=== PATIENT | female | born 1930 | race Caucasian/White ===

== ENCOUNTER 2018-07-02 14:09 | Inpatient (IN) | payer BC, MEDICAID, MEDICARE ==
[~2018-07-02] VITALS: Ht 157.5 cm; Wt 57.7 kg
[~2018-07-02 14:09] MED LIST: ALEN70TA6 PO; AMLO5TAB10 PO; ANTI10DR7 EACH EAR; BLINK EYE EACHEYE; CALC-178 PO; CEPH-264 PO; CIPR250T30 PO; CIPR500T94 PO; Cetirizine PO; ERYTHROMYCIN EACHEYE; HYDR-2145 PO; HYDR12.58 PO; HYDROCLOROTHIAZIDE; INSU100C4 SQ; INSU100V8; LATA2.5D3 OP; LORA-781 PO; MULT-18 PO; NITR25OR2 PO; NITR50CA PO; NOVOLOG; OMEG500C PO; OMEP20CA10 PO; OXYB10TA PO; POTA500T5 PO; SOLI5TAB2 PO; TRAM50TA PO
--- NOTE | 2018-07-02 14:37 | PHYS DOC ---
Past Medical History Past Medical History: Depression, Diabetes-Type II, GERD, Glaucoma, Hypertension, UTI Additional Past Medical Histor: Pt states she has never had tonsils. , osteoperosis Past Surgical History: Other Additional Past Surgical Histo: L)arm Calcium spots removed,Bilat Cataracts, pin placed L arm Alcohol Use: None Drug Use: None Adult General Chief Complaint Chief Complaint: NAUSEA/VOMITING/DIARRHA HPI HPI Patient is a 88 year old female who presents with nausea since this morning. No vomiting. No diarrhea. No fever, no worse with exertion, mild upper abdominal tenderness. Nothing seems to make the discomfort better or worse.[] Review of Systems Review of Systems Constitutional: Denies fever or chills [] Eyes: Denies change in visual acuity, redness, or eye pain [] HENT: Denies nasal congestion or sore throat [] Respiratory: Denies cough or shortness of breath [] Cardiovascular: No chest pain or palpitations[] GI: See history of present illness[] : Denies dysuria or hematuria [] Musculoskeletal: Denies back pain or joint pain [] Integument: Denies rash or skin lesions [] Neurologic: Denies headache, focal weakness or sensory changes [] Endocrine: Denies polyuria or polydipsia [] All other systems were reviewed and found to be within normal limits, except as documented in this note. Current Medications Current Medications Current Medications Medications (Trade) Dose Ordered Sig/Olayinka Start Time Stop Time Status Last Admin Dose Admin Info (CONTRAST GIVEN -- Rx MONITORING) 1 each PRN DAILY PRN 07/02/18 16:15 07/04/18 16:14 Iohexol (Omnipaque 300 Mg/ml) 60 ml 1X ONCE 07/02/18 16:15 07/02/18 16:16 DC 07/02/18 16:08 60 ML Ondansetron HCl (Zofran) 4 mg 1X ONCE 07/02/18 14:45 07/02/18 14:46 DC 07/02/18 14:53 4 MG Sodium Chloride 500 ml @ 500 mls/hr 1X ONCE 07/02/18 16:00 07/02/18 16:59 07/02/18 16:14 500 MLS/HR Allergies Allergies Allergies Coded Allergies Type Severity Reaction Last Updated Verified Sulfa (Sulfonamide Antibiotics) Allergy Intermediate 12/21/14 Yes bacitracin Allergy Intermediate rash 12/21/14 Yes neomycin Allergy Intermediate rash 12/21/14 Yes polymyxin B Allergy Intermediate rash 12/21/14 Yes Physical Exam Physical Exam Constitutional: Well developed, well nourished, no acute distress, non-toxic appearance. [] HENT: Normocephalic, atraumatic, bilateral external ears normal, oropharynx moist, no oral exudates, nose normal. [] Eyes: PERRLA, EOMI, conjunctiva normal, no discharge. [] Neck: Normal range of motion, no tenderness, supple, no stridor. [] Cardiovascular:Heart rate is tachycardic with a regular rhythm, no murmur [] Lungs & Thorax: Bilateral breath sounds clear to auscultation [] Abdomen: Bowel sounds normal, soft, no tenderness, no masses, no pulsatile masses. [] Skin: Warm, dry, no erythema, no rash. [] Back: No tenderness, no CVA tenderness. [] Extremities: No tenderness, no cyanosis, no clubbing, ROM intact, no edema. [] Neurologic: Alert and oriented X 3, normal motor function, normal sensory function, no focal deficits noted. [] Psychologic: Affect normal, judgement normal, mood normal. [] Current Patient Data Vital Signs Vital Signs Date Time Temp Pulse Resp B/P (MAP) Pulse Ox O2 Delivery O2 Flow Rate FiO2 07/02/18 16:00 104 18 140/63 (88) 97 Room Air 07/02/18 14:15 97.9 97.9 Lab Values Laboratory Tests Test 07/02/18 14:27 07/02/18 15:40 White Blood Count 5.5 x10^3/uL (4.0-11.0) Red Blood Count 4.20 x10^6/uL (3.50-5.40) Hemoglobin 11.8 g/dL (12.0-15.5) L Hematocrit 36.6 % (36.0-47.0) Mean Corpuscular Volume 87 fL (79-100) Mean Corpuscular Hemoglobin 28 pg (25-35) Mean Corpuscular Hemoglobin Concent 32 g/dL (31-37) Red Cell Distribution Width 15.1 % (11.5-14.5) H Platelet Count 182 x10^3/uL (140-400) Neutrophils (%) (Auto) 76 % (31-73) H Lymphocytes (%) (Auto) 14 % (24-48) L Monocytes (%) (Auto) 8 % (0-9) Eosinophils (%) (Auto) 2 % (0-3) Basophils (%) (Auto) 0 % (0-3) Neutrophils # (Auto) 4.2 x10^3uL (1.8-7.7) Lymphocytes # (Auto) 0.8 x10^3/uL (1.0-4.8) L Monocytes # (Auto) 0.5 x10^3/uL (0.0-1.1) Eosinophils # (Auto) 0.1 x10^3/uL (0.0-0.7) Basophils # (Auto) 0.0 x10^3/uL (0.0-0.2) Prothrombin Time 12.5 SEC (11.7-14.0) Prothrombin Time INR 1.0 (0.8-1.1) Sodium Level 132 mmol/L (136-145) L Potassium Level 4.0 mmol/L (3.5-5.1) Chloride Level 94 mmol/L (98-107) L Carbon Dioxide Level 26 mmol/L (21-32) Anion Gap 12 (6-14) Blood Urea Nitrogen 17 mg/dL (7-20) Creatinine 1.0 mg/dL (0.6-1.0) Estimated GFR (Cockcroft-Gault) 52.4 BUN/Creatinine Ratio 17 (6-20) Glucose Level 188 mg/dL (70-99) H Calcium Level 9.0 mg/dL (8.5-10.1) Total Bilirubin 0.4 mg/dL (0.2-1.0) Aspartate Amino Transferase (AST) 28 U/L (15-37) Alanine Aminotransferase (ALT) 23 U/L (14-59) Alkaline Phosphatase 69 U/L (46-116) Troponin I Quantitative < 0.017 ng/mL (0.000-0.055) IC-Ktf-[id number]-Type Natriuretic Peptide 253 pg/mL (0-449) Total Protein 7.2 g/dL (6.4-8.2) Albumin 3.7 g/dL (3.4-5.0) Albumin/Globulin Ratio 1.1 (1.0-1.7) Lipase 125 U/L (73-393) Influenza Type A Antigen Negative (NEGATIVE) Influenza Type B Antigen Negative (NEGATIVE) Urine Collection Type Unknown Urine Color Yellow Urine Clarity Clear Urine pH 6.0 Urine Specific [place] 1.010 Urine Protein Negative mg/dL (NEG-TRACE) Urine Glucose (UA) Negative mg/dL (NEG) Urine Ketones (Stick) Trace mg/dL (NEG) Urine Blood Negative (NEG) Urine Nitrite Negative (NEG) Urine Bilirubin Negative (NEG) Urine Urobilinogen Dipstick 0.2 mg/dL (0.2 mg/dL) Urine Leukocyte Esterase Negative (NEG) Urine RBC Occ /HPF (0-2) Urine WBC Occ /HPF (0-4) Urine Squamous Epithelial Cells Few /LPF Urine Bacteria 0 /HPF (0-FEW) Laboratory Tests 07/02/18 14:27 Laboratory Tests 07/02/18 14:27 EKG EKG EKG shows a sinus tachycardia at 104 bpm, left axis deviation, QTC of 440 ms, no ST elevations. No old EKG available for comparison. Interpreted by me at 1445 [] Radiology/Procedures Radiology/Procedures PORTABLE CHEST 1V History: NAUSEA AND UPPER ABDOMEN PAIN Comparison: August 21, 2015 Findings: Single view of the chest is submitted. There is atherosclerotic calcification of the aortic arch. Heart size is stable. There is no lobar infiltrate, pleural fluid, pneumothorax. Impression: 1. No acute radiographic abnormality is identified.[] Course & Med Decision Making Course & Med Decision Making Pertinent Labs and Imaging studies reviewed. (See chart for details) ED course: Patient arrived, was placed in bed, and tolerated exam well. IV access was established and she was given antiemetics as well as IV fluids. After the first 500 mL bolus, her heart rate had improved from 110-100. She was being taken to CT at the time the second bolus was ordered. She also reported feeling much better prior to being transported to CT. After the second 500 mL saline bolus her heart rate continues to the hover in the 105 range. Discussed findings and plan with patient and family who voiced understanding. All questions were answered. Consultation was made with the hospitalist service for admission. Patient was admitted in improved condition. Medical decision making: There is no evidence of a STEMI however still concerned about possible cardiac etiology given the nausea and persistent tachycardia an elderly hypertensive and diabetic patient. No evidence of DKA, no evidence of urinary tract infection, no evidence of significant intra- abdominal pathology.. No evidence of significant electrolyte abnormality. He shouldn't is being admitted for further evaluation and treatment.[] Dragon Disclaimer Dragon Disclaimer This electronic medical record was generated, in whole or in part, using a voice recognition dictation system. Departure Departure Impression: Primary Impression: Nausea Additional Impression: Tachycardia Disposition: ADMITTED INPATIENT Admitting Physician: Eric Maza Condition: IMPROVED Referrals: ALICIA NELSON MD (PCP) Problem Qualifiers OSBALDO NOE DO Jul 02, 2018 14:37
[2018-07-02] MEDS ORDERED: ONDANSETRON PF 4 MG/2 ML VIAL. IV ONE (14:45)
[2018-07-02] MEDS ORDERED: IV NORMAL SALINE 500ML BAG 500 ML IV ONE ×2 (14:45→16:00)
--- NOTE | 2018-07-02 14:55 | RAD ---
PORTABLE CHEST 1V History: NAUSEA AND UPPER ABDOMEN PAIN Comparison: August 21, 2015 Findings: Single view of the chest is submitted. There is atherosclerotic calcification of the aortic arch. Heart size is stable. There is no lobar infiltrate, pleural fluid, pneumothorax. Impression: 1. No acute radiographic abnormality is identified. Electronically signed by: Abhinav Owens MD (07/02/2018 2:52 PM) [facility]
[2018-07-02 15:06] LABS: BASO % 0 % (0-3); EOS # 0.1 x10^3/uL (0.0-0.7); EOS % 2 % (0-3); HEMATOCRIT 36.6 % (36.0-47.0); HEMOGLOBIN 11.8 g/dL (12.0-15.5); LYMPH # 0.8 x10^3/uL (1.0-4.8); LYMPH % 14 % (24-48); MEAN CORPUSCULAR HEMOGLOBIN 28 pg (25-35); MEAN CORPUSCULAR HGB CONC 32 g/dL (31-37); MEAN CORPUSCULAR VOLUME 87 fL (79-100); MONO # 0.5 x10^3/uL (0.0-1.1); MONO % 8 % (0-9); NEUT # 4.2 x10^3uL (1.8-7.7); NEUT % 76 % (31-73); PLATELET COUNT 182 x10^3/uL (140-400); RED CELL DISTRIBUTION WIDTH 15.1 % (11.5-14.5); WHITE BLOOD COUNT 5.5 x10^3/uL (4.0-11.0)
[2018-07-02 15:15] LABS: GFR 52.4
[2018-07-02 15:17] LABS: PROTHROMBIN TIME PATIENT 12.5 SEC (11.7-14.0)
[2018-07-02 15:21] LABS: ALBUMIN 3.7 g/dL (3.4-5.0); ALBUMIN/GLOBULIN RATIO 1.1 (1.0-1.7); TOTAL BILIRUBIN 0.4 mg/dL (0.2-1.0); TOTAL PROTEIN 7.2 g/dL (6.4-8.2)
[2018-07-02 15:45] LABS: INFLUENZA A PATIENT NEGATIVE (NEGATIVE); INFLUENZA B PATIENT NEGATIVE (NEGATIVE)
[2018-07-02 15:48] LABS: BILIRUBIN,URINE NEGATIVE (NEG); CLARITY,URINE CLEAR; COLOR,URINE YELLOW; NITRITE,URINE NEGATIVE (NEG); PROTEIN,URINE NEGATIVE (NEG-TRACE); UROBILINOGEN,URINE 0.2 mg/dL (0.2 mg/dL)
[2018-07-02 15:58] LABS: BACTERIA,URINE 0 /HPF (0-FEW); SQUAMOUS EPITHELIAL CELL,UR FEW /LPF
[2018-07-02 15:59] LABS: RBC,URINE OCC /HPF (0-2); WBC,URINE OCC /HPF (0-4)
[2018-07-02] MEDS ORDERED: IOHEXOL 300 MG/ML 100ML VIAL. IV ONE (16:15)
[2018-07-02] MEDS ORDERED: CONTRAST GIVEN. MC PRN (16:15)
--- NOTE | 2018-07-02 16:40 | RAD ---
CT ABD PELV W/ IV CONTRST ONLY Indication: Nausea, abdominal pain Technique: Postcontrast CT imaging was performed of the abdomen pelvis, multiplanar reconstruction images submitted. No oral contrast was given. One or more of the following individualized dose reduction techniques were utilized for this examination: 1. Automated exposure control 2. Adjustment of the mA and/or kV according to patient size 3. Use of iterative reconstruction technique. Comparison: April 22, 2014 Findings: There is no pleural fluid. There is moderate size hiatal hernia which is larger in interval, nonspecific wall thickening involved segment. There is coronary calcification and mitral annular calcification. Gallbladder is present without obvious intraluminal abnormality by CT. There is no significant adrenal nodularity. Left kidney is again small with variable cortical thinning. Both kidneys enhance. There is mild right renal pelviectasis. There is a 1.9 cm exophytic left renal cyst. There is also a small hypodense lesion mid right kidney about 0.8 cm difficult to accurately characterize, more likely a cyst. There again large diverticulum of the transverse duodenum about 4 to 5 cm in size as seen previously. There is again ectatic proximal abdominal aorta about 2.8 cm. There is small hypodense lesion of the left lobe liver more likely a cyst, about 0.4 cm. There is atherosclerotic calcification abdominal aorta, also near the origins of the renal arteries bilaterally. There is also atherosclerotic calcification of the iliac arteries bilaterally. Accurate evaluation of bowel is somewhat limited without oral contrast. Bowel is not significantly dilated. There is no free air or free fluid. There is greater degree of retained stool in the right colon. No significant localized inflammatory type change is seen about the bowel. Normal caliber appendix is visualized. There is multilevel lumbar facet degenerative change. There is mild S-shaped scoliosis of the thoracolumbar spine. There has been vertebroplasty at L2. There is T12 compression deformity although present on 2016 chest radiograph. There is thoracolumbar degenerative disc disease. IMPRESSION: 1. There is moderate size hiatal hernia, nonspecific wall thickening of involved segment which could be due to underlying inflammatory change, mass not excludable by this exam. 2. There is retained stool greater of the right colon. There is no evidence of acute appendicitis. 3. There is again proximally ectatic abdominal aorta about 2.8 cm. 4. 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 5. Left kidney is again small with variable cortical thinning/old infarcts. Electronically signed by: Abhinav Owens MD (07/02/2018 4:37 PM) [facility]
[2018-07-02] MEDS ORDERED: ACETAMINOPHEN 325 MG TABLET. PO PRN (17:00)
[2018-07-02] MEDS ORDERED: IV NORMAL SALINE 1000ML BAG 1,000 ML IV SCH (17:00)
[2018-07-02] MEDS ORDERED: NITROGLYCERIN SUBLINGUAL 0.4 MG BOTTLE OF 25. SL PRN (17:00)
[2018-07-02] MEDS ORDERED: ONDANSETRON PF 4 MG/2 ML VIAL. IV PRN (17:00)
[2018-07-02 18:00] VITALS: BP 130/60
[2018-07-02] MEDS ORDERED: SIMV10TA3 PO (18:11)
[2018-07-02] MEDS ORDERED: PANT20TA2 PO (18:11)
[2018-07-02] MEDS ORDERED: CIPR250T PO (18:11)
[2018-07-02] MEDS ORDERED: AMLO10TA8 PO (18:46)
[2018-07-02] MEDS ORDERED: LOSA25TA54 PO (18:46)
[2018-07-02] MEDS ORDERED: RANI150T2 PO (18:46)
[2018-07-02] MEDS ORDERED: INSU100I13 SQ (18:46)
[2018-07-02] MEDS ORDERED: MULT1TAB52 PO (18:48)
[2018-07-02] MEDS ORDERED: ASPI-702 PO (18:48)
[2018-07-02] MEDS ORDERED: DOCU-109 PO (18:48)
[2018-07-02 19:53] VITALS: BP 123/55
--- NOTE | 2018-07-02 20:05 | PDOC1 ---
History and Physical Date of Admission Date of Admission DATE: 07/02/18 TIME: 20:05 Identification/Chief Complaint Chief Complaint seen in er, 88 year old female who presents with nausea since this morning. No vomiting. No diarrhea. No fever, no worse with exertion, mild upper abdominal tenderness.tachy on exam in ER ///appears dry Past Medical History Past Medical History Past Medical History Past Medical History Past Medical History: Depression, Diabetes-Type II, GERD, Glaucoma, Hypertension, UTI Additional Past Medical Histor: Pt states she has never had tonsils. , osteoperosis Past Surgical History: Other Additional Past Surgical Histo: L)arm Calcium spots removed,Bilat Cataracts, pin placed L arm Alcohol Use: None Drug Use: None FAMILY HX HTN Family History Family History: Hypertension Social History Smoke: No ALCOHOL: none Drugs: None Current Problem List Problem List Problems Medical Problems: (1) Nausea Status: Acute (2) Tachycardia Status: Acute Current Medications Current Medications Current Medications Ondansetron HCl (Zofran) 4 mg 1X ONCE IV Last administered on 07/02/18at 14:53 ; Start 07/02/18 at 14:45; Stop 07/02/18 at 14:46; Status DC Sodium Chloride 500 ml @ 500 mls/hr 1X ONCE IV Last administered on at 14:45; Start 07/02/18 at 14:45; Stop 07/02/18 at 15:44; Status DC Sodium Chloride 500 ml @ 500 mls/hr 1X ONCE IV Last administered on at 16:14; Start 07/02/18 at 16:00; Stop 07/02/18 at 16:59; Status DC Iohexol (Omnipaque 300 Mg/ml) 60 ml 1X ONCE IV Last administered on 07/02/18at 16:08; Start 07/02/18 at 16:15; Stop 07/02/18 at 16:16; Status DC Info (CONTRAST GIVEN -- Rx MONITORING) 1 each PRN DAILY PRN MC SEE COMMENTS; Start 07/02/18 at 16:15; Stop 07/04/18 at 16:14 Ondansetron HCl (Zofran) 4 mg PRN Q8HRS PRN IV NAUSEA/VOMITING; Start 07/02/18 at 17:00; Stop 07/03/18 at 16:59 Sodium Chloride 1,000 ml @ 125 mls/hr Q8H IV ; Start 07/02/18 at 17:00; Stop at 16:59 Acetaminophen (Tylenol) 650 mg PRN Q4HRS PRN PO FEVER; Start 07/02/18 at 17:00 ; Stop 07/03/18 at 16:59 Nitroglycerin (Nitrostat) 0.4 mg PRN Q5MIN PRN SL CHEST PAIN; Start 07/02/18 at 17:00; Stop 07/03/18 at 16:59 Amlodipine Besylate (Norvasc) 10 mg DAILY PO ; Start 07/03/18 at 09:00 Aspirin (Children'S Aspirin) 81 mg DAILY07 PO ; Start 07/03/18 at 07:00 Ciprofloxacin (Cipro) 250 mg QHS PO ; Start 07/02/18 at 21:00 Docusate Sodium (Colace) 100 mg BID PO ; Start 07/02/18 at 21:00 Insulin Glargine (Lantus) 12 units QHS SQ ; Start 07/02/18 at 21:00 Losartan Potassium (Cozaar) 25 mg DAILY PO ; Start 07/03/18 at 09:00 Simvastatin (Zocor) 10 mg HS PO ; Start 07/02/18 at 21:00 Insulin Human Lispro (HumaLOG) 3 units TIDWMEALS SQ ; Start 07/03/18 at 08:00 Latanoprost (Xalatan) 1 drop QHS OU ; Start 07/02/18 at 21:00 Multivitamins (Thera M Plus) 1 tab DAILY PO ; Start 07/03/18 at 09:00 Fish Oil (Fish Oil) 1,000 mg DAILY PO ; Start 07/03/18 at 09:00 Pantoprazole Sodium (Protonix) 40 mg BIDAC PO ; Start 07/03/18 at 07:30 Non-Formulary Medication (Ranitidine Hcl ) 150 mg BID PO ; Start 07/02/18 at 21: 00; Stop 07/02/18 at 21:00; Status DC Active Scripts Active Reported Colace (Docusate Sodium) 100 Mg Capsule 1 Cap PO BID Children's Aspirin (Aspirin) 81 Mg Tab.chew 81 Mg PO DAILY Multivitamins (Multivitamin) 1 Each Tablet 1 Tab PO DAILY Lantus Solostar (Insulin Glargine,Hum.rec.anlog) 100 Unit/1 Ml Insuln.pen 12 Unit SQ QHS Amlodipine Besylate 10 Mg Tablet 10 Mg PO DAILY Losartan Potassium (Losartan Potassium) 25 Mg Tablet 25 Mg PO DAILY Ranitidine Hcl 150 Mg Tablet 150 Mg PO BID Ciprofloxacin Hcl 250 Mg Tablet 500 Mg PO BID Simvastatin 10 Mg Tablet 10 Mg PO HS Protonix (Pantoprazole Sodium) 20 Mg Tablet.dr 40 Mg PO BID Novolog (Insulin Aspart) 100 Unit/1 Ml Cartridge 3 Unit SQ TIDAC Fish Oil ([place]-3 Fatty Acids) 500 Mg Capsule.dr 1,000 Mg PO DAILY Latanoprost 2.5 Ml Drops 1 Drop OP HS Allergies Allergies: Coded Allergies: Sulfa (Sulfonamide Antibiotics) (Verified Allergy, Intermediate, 12/21/14) bacitracin (Verified Allergy, Intermediate, rash, 12/21/14) neomycin (Verified Allergy, Intermediate, rash, 12/21/14) polymyxin B (Verified Allergy, Intermediate, rash, 12/21/14) ROS Review of System Review of Systems Review of Systems Constitutional: Denies fever or chills [] Eyes: Denies change in visual acuity, redness, or eye pain [] HENT: Denies nasal congestion or sore throat [] Respiratory: Denies cough or shortness of breath [] Cardiovascular: No chest pain or palpitations[] GI: See history of present illness[] : Denies dysuria or hematuria [] Musculoskeletal: Denies back pain or joint pain [] Integument: Denies rash or skin lesions [] Neurologic: Denies headache, focal weakness or sensory changes [] Endocrine: Denies polyuria or polydipsia [] 14 PT systems were reviewed and found to be within normal limits, except as documented General: YES: Fatigue HEENT: No: Heacaches, Visual Changes, Hearing change, Nasal congestion, Nasal discharge, Oral lesions, Sinus pain, Sore Throat, Epistaxis, Sneezing, Snoring, Tinnitus, Vertigo, Vocal changes, Other Cardiovascular: yes Palpitations Neurological: Yes Dizziness Physical Exam Physical Exam Physical Exam Physical Exam Constitutional: Well developed, well nourished, mild acute distress, non-toxic appearance. [] HENT: Normocephalic, atraumatic, bilateral external ears normal, oropharynx moist, no oral exudates, nose normal. [] Eyes: PERRLA, EOMI, conjunctiva normal, no discharge. [] Neck: Normal range of motion, no tenderness, supple, no stridor. [] Cardiovascular:Heart rate is tachycardic with a regular rhythm, no murmur [] Lungs & Thorax: Bilateral breath sounds clear to auscultation [] Abdomen: Bowel sounds normal, soft, no tenderness, no masses, no pulsatile masses. [] Skin: Warm, dry, no erythema, no rash. [] Back: No tenderness, no CVA tenderness. [] Extremities: No tenderness, no cyanosis, no clubbing, ROM intact, no edema. [] Neurologic: Alert and oriented X 3, normal motor function, normal sensory function, no focal deficits noted. [] Psychologic: Affect normal, judgement normal, mood normal. [] General: Alert, Oriented X3, Cooperative, mild distress HEENT: Atraumatic Lungs: Clear to auscultation Heart: no gallops Breasts: Not examined Abdomen: Normal bowel sounds, Soft PELVIC: Examination not indicated Extremities: No cyanosis Skin: No breakdown Neuro: Normal speech, Cranial nerves 3-12 NL Psych/Mental Status: Mental status NL Vitals Vitals Vital Signs Date Time Temp Pulse Resp B/P (MAP) Pulse Ox O2 Delivery O2 Flow Rate FiO2 07/02/18 18:20 Room Air 07/02/18 18:00 121 130/60 (83) 95 07/02/18 16:30 16 07/02/18 14:15 97.9 97.9 Labs Labs Laboratory Tests Test 07/02/18 14:27 07/02/18 15:40 White Blood Count 5.5 x10^3/uL (4.0-11.0) Red Blood Count 4.20 x10^6/uL (3.50-5.40) Hemoglobin 11.8 g/dL (12.0-15.5) Hematocrit 36.6 % (36.0-47.0) Mean Corpuscular Volume 87 fL (79-100) Mean Corpuscular Hemoglobin 28 pg (25-35) Mean Corpuscular Hemoglobin Concent 32 g/dL (31-37) Red Cell Distribution Width 15.1 % (11.5-14.5) Platelet Count 182 x10^3/uL (140-400) Neutrophils (%) (Auto) 76 % (31-73) Lymphocytes (%) (Auto) 14 % (24-48) Monocytes (%) (Auto) 8 % (0-9) Eosinophils (%) (Auto) 2 % (0-3) Basophils (%) (Auto) 0 % (0-3) Neutrophils # (Auto) 4.2 x10^3uL (1.8-7.7) Lymphocytes # (Auto) 0.8 x10^3/uL (1.0-4.8) Monocytes # (Auto) 0.5 x10^3/uL (0.0-1.1) Eosinophils # (Auto) 0.1 x10^3/uL (0.0-0.7) Basophils # (Auto) 0.0 x10^3/uL (0.0-0.2) Prothrombin Time 12.5 SEC (11.7-14.0) Prothromb Time International Ratio 1.0 (0.8-1.1) Sodium Level 132 mmol/L (136-145) Potassium Level 4.0 mmol/L (3.5-5.1) Chloride Level 94 mmol/L (98-107) Carbon Dioxide Level 26 mmol/L (21-32) Anion Gap 12 (6-14) Blood Urea Nitrogen 17 mg/dL (7-20) Creatinine 1.0 mg/dL (0.6-1.0) Estimated GFR (Cockcroft-Gault) 52.4 BUN/Creatinine Ratio 17 (6-20) Glucose Level 188 mg/dL (70-99) Calcium Level 9.0 mg/dL (8.5-10.1) Total Bilirubin 0.4 mg/dL (0.2-1.0) Aspartate Amino Transf (AST/SGOT) 28 U/L (15-37) Alanine Aminotransferase (ALT/SGPT) 23 U/L (14-59) Alkaline Phosphatase 69 U/L (46-116) Troponin I Quantitative < 0.017 ng/mL (0.000-0.055) QI-Zyl-E-Type Natriuretic Peptide 253 pg/mL (0-449) Total Protein 7.2 g/dL (6.4-8.2) Albumin 3.7 g/dL (3.4-5.0) Albumin/Globulin Ratio 1.1 (1.0-1.7) Lipase 125 U/L (73-393) Influenza Type A Antigen Negative (NEGATIVE) Influenza Type B Antigen Negative (NEGATIVE) Urine Collection Type Unknown Urine Color Yellow Urine Clarity Clear Urine pH 6.0 Urine Specific [place] 1.010 Urine Protein Negative mg/dL (NEG-TRACE) Urine Glucose (UA) Negative mg/dL (NEG) Urine Ketones (Stick) Trace mg/dL (NEG) Urine Blood Negative (NEG) Urine Nitrite Negative (NEG) Urine Bilirubin Negative (NEG) Urine Urobilinogen Dipstick 0.2 mg/dL (0.2 mg/dL) Urine Leukocyte Esterase Negative (NEG) Urine RBC Occ /HPF (0-2) Urine WBC Occ /HPF (0-4) Urine Squamous Epithelial Cells Few /LPF Urine Bacteria 0 /HPF (0-FEW) Laboratory Tests Test 07/02/18 14:27 07/02/18 15:40 White Blood Count 5.5 x10^3/uL (4.0-11.0) Red Blood Count 4.20 x10^6/uL (3.50-5.40) Hemoglobin 11.8 g/dL (12.0-15.5) Hematocrit 36.6 % (36.0-47.0) Mean Corpuscular Volume 87 fL (79-100) Mean Corpuscular Hemoglobin 28 pg (25-35) Mean Corpuscular Hemoglobin Concent 32 g/dL (31-37) Red Cell Distribution Width 15.1 % (11.5-14.5) Platelet Count 182 x10^3/uL (140-400) Neutrophils (%) (Auto) 76 % (31-73) Lymphocytes (%) (Auto) 14 % (24-48) Monocytes (%) (Auto) 8 % (0-9) Eosinophils (%) (Auto) 2 % (0-3) Basophils (%) (Auto) 0 % (0-3) Neutrophils # (Auto) 4.2 x10^3uL (1.8-7.7) Lymphocytes # (Auto) 0.8 x10^3/uL (1.0-4.8) Monocytes # (Auto) 0.5 x10^3/uL (0.0-1.1) Eosinophils # (Auto) 0.1 x10^3/uL (0.0-0.7) Basophils # (Auto) 0.0 x10^3/uL (0.0-0.2) Prothrombin Time 12.5 SEC (11.7-14.0) Prothromb Time International Ratio 1.0 (0.8-1.1) Sodium Level 132 mmol/L (136-145) Potassium Level 4.0 mmol/L (3.5-5.1) Chloride Level 94 mmol/L (98-107) Carbon Dioxide Level 26 mmol/L (21-32) Anion Gap 12 (6-14) Blood Urea Nitrogen 17 mg/dL (7-20) Creatinine 1.0 mg/dL (0.6-1.0) Estimated GFR (Cockcroft-Gault) 52.4 BUN/Creatinine Ratio 17 (6-20) Glucose Level 188 mg/dL (70-99) Calcium Level 9.0 mg/dL (8.5-10.1) Total Bilirubin 0.4 mg/dL (0.2-1.0) Aspartate Amino Transf (AST/SGOT) 28 U/L (15-37) Alanine Aminotransferase (ALT/SGPT) 23 U/L (14-59) Alkaline Phosphatase 69 U/L (46-116) Troponin I Quantitative < 0.017 ng/mL (0.000-0.055) SI-Urn-I-Type Natriuretic Peptide 253 pg/mL (0-449) Total Protein 7.2 g/dL (6.4-8.2) Albumin 3.7 g/dL (3.4-5.0) Albumin/Globulin Ratio 1.1 (1.0-1.7) Lipase 125 U/L (73-393) Influenza Type A Antigen Negative (NEGATIVE) Influenza Type B Antigen Negative (NEGATIVE) Urine Collection Type Unknown Urine Color Yellow Urine Clarity Clear Urine pH 6.0 Urine Specific [place] 1.010 Urine Protein Negative mg/dL (NEG-TRACE) Urine Glucose (UA) Negative mg/dL (NEG) Urine Ketones (Stick) Trace mg/dL (NEG) Urine Blood Negative (NEG) Urine Nitrite Negative (NEG) Urine Bilirubin Negative (NEG) Urine Urobilinogen Dipstick 0.2 mg/dL (0.2 mg/dL) Urine Leukocyte Esterase Negative (NEG) Urine RBC Occ /HPF (0-2) Urine WBC Occ /HPF (0-4) Urine Squamous Epithelial Cells Few /LPF Urine Bacteria 0 /HPF (0-FEW) Images Images PORTABLE CHEST 1V History: NAUSEA AND UPPER ABDOMEN PAIN Comparison: August 21, 2015 Findings: Single view of the chest is submitted. There is atherosclerotic calcification of the aortic arch. Heart size is stable. There is no lobar infiltrate, pleural fluid, pneumothorax. Impression: 1. No acute radiographic abnormality is identified. Electronically signed by: Abhinav Owens MD (07/02/2018 2:52 PM) [facility] CT ABD PELV W/ IV CONTRST ONLY Indication: Nausea, abdominal pain Technique: Postcontrast CT imaging was performed of the abdomen pelvis, multiplanar reconstruction images submitted. No oral contrast was given. One or more of the following individualized dose reduction techniques were utilized for this examination: 1. Automated exposure control 2. Adjustment of the mA and/or kV according to patient size 3. Use of iterative reconstruction technique. Comparison: April 22, 2014 Findings: There is no pleural fluid. There is moderate size hiatal hernia which is larger in interval, nonspecific wall thickening involved segment. There is coronary calcification and mitral annular calcification. Gallbladder is present without obvious intraluminal abnormality by CT. There is no significant adrenal nodularity. Left kidney is again small with variable cortical thinning. Both kidneys enhance. There is mild right renal pelviectasis. There is a 1.9 cm exophytic left renal cyst. There is also a small hypodense lesion mid right kidney about 0.8 cm difficult to accurately characterize, more likely a cyst. There again large diverticulum of the transverse duodenum about 4 to 5 cm in size as seen previously. There is again ectatic proximal abdominal aorta about 2.8 cm. There is small hypodense lesion of the left lobe liver more likely a cyst, about 0.4 cm. There is atherosclerotic calcification abdominal aorta, also near the origins of the renal arteries bilaterally. There is also atherosclerotic calcification of the iliac arteries bilaterally. Accurate evaluation of bowel is somewhat limited without oral contrast. Bowel is not significantly dilated. There is no free air or free fluid. There is greater degree of retained stool in the right colon. No significant localized inflammatory type change is seen about the bowel. Normal caliber appendix is visualized. There is multilevel lumbar facet degenerative change. There is mild S-shaped scoliosis of the thoracolumbar spine. There has been vertebroplasty at L2. There is T12 compression deformity although present on 2016 chest radiograph. There is thoracolumbar degenerative disc disease. IMPRESSION: 1. There is moderate size hiatal hernia, nonspecific wall thickening of involved segment which could be due to underlying inflammatory change, mass not excludable by this exam. 2. There is retained stool greater of the right colon. There is no evidence of acute appendicitis. 3. There is again proximally ectatic abdominal aorta about 2.8 cm. 4. 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 5. Left kidney is again small with variable cortical thinning/old infarcts. Electronically signed by: Abhinav Owens MD (07/02/2018 4:37 PM) [facility] VTE Prophylaxis Ordered VTE Prophylaxis Devices: Yes VTE Pharmacological Prophylaxi: Yes Assessment/Plan Assessment/Plan Impression: Nausea, INTRACTABLE Tachycardia SIRS Abdominal discomfort DIABETES HYPERTENSION RECURRENT UTI'S ON SUPPRESSIVE RX CIPRO VOLUME DEPLETION SEC NAUSEA DEC INTAKE ADMITTED IV FLUID SUPPORT IV ZOFRAN 4 MG Q 4 HRS PRN GI consult lactic acid npo cvc admit TELE MONITOR BLOOD CULTURE DVT PROPHYLAXIS EMPERIC IV DOXYCYCLINE 100MG Q 12 HRS HOME MEDS 64 MIN PT EXAM, CHART REVIEW, > 50% of time with exam, chart review, pt care coordination ANKIT STRONG MD Jul 02, 2018 20:05
[2018-07-02] MEDS ORDERED: LATANOPROST 0.005% OPHTH SOLUTION 2.5ML BOTTLE. OU SCH (21:00)
[2018-07-02] MEDS ORDERED: INSULIN GLARGINE 300 UNITS/3 ML INSULN.PEN. SQ SCH (21:00)
[2018-07-02] MEDS ORDERED: SIMVASTATIN 10 MG TABLET PO SCH (21:00)
[2018-07-02] MEDS ORDERED: NON FORMULARY ITEM (Ranitidine Hcl 150 MG) PO SCH (21:00)
[2018-07-02] MEDS ORDERED: CIPROFLOXACIN HCL 250 MG TABLET. PO SCH (21:00)
[2018-07-02] MEDS: DOCUSATE SODIUM 100 MG CAPSULE. PO SCH (21:54)
[2018-07-02] MEDS: DOXYCYCLINE HYCLATE 100 MG in IV DEXTROSE 5% 100ML 100 ML IV SCH (21:55)
[2018-07-02 22:16] VITALS: BP 131/57
[2018-07-03 03:13] VITALS: BP 112/51
[2018-07-03 04:07] LABS: BASO % 1 % (0-3); EOS # 0.1 x10^3/uL (0.0-0.7); EOS % 3 % (0-3); HEMATOCRIT 32.3 % (36.0-47.0); HEMOGLOBIN 10.7 g/dL (12.0-15.5); LYMPH # 1.2 x10^3/uL (1.0-4.8); LYMPH % 32 % (24-48); MEAN CORPUSCULAR HEMOGLOBIN 28 pg (25-35); MEAN CORPUSCULAR HGB CONC 33 g/dL (31-37); MEAN CORPUSCULAR VOLUME 86 fL (79-100); MONO # 0.5 x10^3/uL (0.0-1.1); MONO % 15 % (0-9); NEUT # 1.8 x10^3uL (1.8-7.7); NEUT % 49 % (31-73); PLATELET COUNT 175 x10^3/uL (140-400); RED BLOOD COUNT 3.75 x10^6/uL (3.50-5.40); RED CELL DISTRIBUTION WIDTH 15.3 % (11.5-14.5); WHITE BLOOD COUNT 3.6 x10^3/uL (4.0-11.0)
[2018-07-03 04:37] LABS: ALBUMIN 2.8 g/dL (3.4-5.0); ALBUMIN/GLOBULIN RATIO 0.9 (1.0-1.7); CALCIUM 8.4 mg/dL (8.5-10.1); CREATININE 0.7 mg/dL (0.6-1.0); GFR 79.2; POTASSIUM 3.5 mmol/L (3.5-5.1); TOTAL BILIRUBIN 0.3 mg/dL (0.2-1.0); TOTAL PROTEIN 5.9 g/dL (6.4-8.2)
[2018-07-03] MEDS ORDERED: ASPIRIN CHEWABLE 81 MG TABLET. PO SCH (07:00)
[2018-07-03 07:10] VITALS: BP 144/62
[2018-07-03] MEDS ORDERED: PANTOPRAZOLE 40 MG TABLET.DR. PO SCH (07:30)
[2018-07-03] MEDS: INSULIN LISPRO 300 UNITS/3 ML INSULN.PEN. SQ SCH ×2 (08:00→12:25)
[2018-07-03] MEDS: DOCUSATE SODIUM 100 MG CAPSULE. PO SCH (08:38)
[2018-07-03] MEDS: DOXYCYCLINE HYCLATE 100 MG in IV DEXTROSE 5% 100ML 100 ML IV SCH (08:41)
[2018-07-03] MEDS ORDERED: OMEGA-3 FATTY ACIDS/FISH OIL 1,000 MG CAPSULE. PO SCH (09:00)
[2018-07-03] MEDS ORDERED: LOSARTAN POTASSIUM 25 MG TABLET. PO SCH (09:00)
[2018-07-03] MEDS ORDERED: MULTIVITAMIN with MINERAL TABLET. PO SCH (09:00)
[2018-07-03] MEDS ORDERED: amLODIPine BESYLATE 10 MG TABLET PO SCH (09:00)
[2018-07-03] MEDS ORDERED: LACTOBACILLUS RHAMNOSUS GG 1 CAPSULE. PO SCH (09:00)
--- NOTE | 2018-07-03 09:40 | EKG ---
[facility] [address] [place] [address] Test Date: 2018-07-02 Test Time: 14:28:51 Pat Name: JERMAIN SUBRAMANIAN Department: Room: 204 1 Gender: F Refrigeration Person: : [id number] Requested By: OSBALDO NOE Order Number: [id number] Reading MD: Shade Layton MD Measurements Intervals [place] Rate: 104 P: 31 NE: 134 QRS: -38 QRSD: 84 T: 54 QT: 330 QTc: 440 Interpretive Statements SINUS TACHYCARDIA ABNORMAL LEFT AXIS DEVIATION CONSIDER PRIOR ANTEROSEPTAL INFARCT Electronically Signed On 07-04-2018 14:35:09 CDT by Shade Layton MD
--- NOTE | 2018-07-03 11:24 | PDOC ---
Provider Note Provider Note [id number] ALICIA NELSON MD Jul 03, 2018 11:24
[2018-07-03 11:34] VITALS: BP 132/56
--- NOTE | 2018-07-03 15:40 | NUR ---
Discharge Note: JAHAIRA SUBRAMAINAN CANNELTON Discharge instructions and discharge home medications reviewed with Patient and family member and a copy given. All questions have been answered and understanding verbalized. Follow up instructions given to patient. The following instructions and handouts were given: Tachycardia, Nausea Discontinued lines and drains: Peripheral IV intact. Patient discharged to Home or Self Care with Family Member via Wheelchair
--- NOTE | 2018-07-03 19:54 | DS ---
DATE OF DISCHARGE: 07/03/2018 HOSPITAL SUMMARY: An 88-year-old admitted with some nausea and mild tachycardia, but her heart rate was 120 and dropped into the 90s after admission. CBC and chemistry profile were unremarkable. Urine was free of infection. Chest x-ray was clear and CT scan of her abdomen and pelvis showed preexisting hiatal hernia, but no acute changes. She is feeling better now and wants to try regular food. Will be discharged later today if she is able to tolerate food okay. The nausea was felt possibly related to home medicines as she has been taking Cipro 500 twice a day and simvastatin both and these drugs may be more negative than positive effect. FINAL DIAGNOSIS: Persistent nausea, likely secondary to medication. OPERATIONS, PROCEDURES, COMPLICATIONS AND CONSULTATIONS: None. DISPOSITION: No new home medications. Regular diabetic diet, insulin per her home comfort advisor. She will stop her Cipro and her simvastatin as risk greater than benefit. Rest of medications remain the same. PROGNOSIS: Guarded because of her advanced age. ALICIA NELSON MD DR: JN/nts JOB#: [id number] / [id number]
[2018-07-04] MEDS ORDERED: PANTOPRAZOLE 40 MG TABLET.DR. PO SCH (08:00)
== END 2018-07-03 15:40 | disposition home or self-care (01) | DRG 392 ==
LOC: ER 14:09 → 2 NORTH 16:48
PROVIDERS: ADMIT Family Medicine; ATTEND Family Medicine
DX: R11.2 Nausea with vomiting, unspecified (principal); R65.10 Systemic inflammatory response syndrome (SIRS) of non-infectious origin without acute organ dysfunction; K44.9 Diaphragmatic hernia without obstruction or gangrene; F32.9 Major depressive disorder, single episode, unspecified; K21.9 Gastro-esophageal reflux disease without esophagitis; I10 Essential (primary) hypertension; E11.9 Type 2 diabetes mellitus without complications; H40.9 Unspecified glaucoma; E86.9 Volume depletion, unspecified; Z87.440 Personal history of urinary (tract) infections; Z88.1 Allergy status to other antibiotic agents; Z88.2 Allergy status to sulfonamides; Z82.49 Family history of ischemic heart disease and other diseases of the circulatory system; Y92.89 Other specified places as the place of occurrence of the external cause; T36.8X5A Adverse effect of other systemic antibiotics, initial encounter; T46.6X5A Adverse effect of antihyperlipidemic and antiarteriosclerotic drugs, initial encounter
CPT/HCPCS: 36415; 71045; 74177; 80053; 81001; 82962; 83605; 83690; 83880; 84484; 85025; 85610; 87040; 87086; 87804; 93005; 96361; 96374; J1815; J2405; J3490; J7040; Q9967; 99285-25

== ENCOUNTER 2018-08-05 17:48 | Emergency (ER) | payer BC, OTHER ==
[~2018-08-05] VITALS: Ht 157.5 cm; Wt 59.0 kg
[~2018-08-05 17:48] MED LIST changes: +AMLO10TA8 PO; +ASPI-702 PO; +CIPR250T PO; +DOCU-109 PO; +INSU100I13 SQ; +LOSA25TA54 PO; +MULT1TAB52 PO; +PANT20TA2 PO; +RANI150T2 PO; +SIMV10TA3 PO
[2018-08-05 18:07] VITALS: BP 144/67
--- NOTE | 2018-08-05 18:20 | PHYS DOC ---
Past Medical History Past Medical History: Depression, Diabetes-Type II, GERD, Glaucoma, Hyper tension, UTI, Other Additional Past Medical Histor: Pt states she has never had tonsils. , osteoperosis (NICOLAS GALE APRN) Past Surgical History: Other Additional Past Surgical Histo: L)arm Calcium spots removed,Bilat Cataracts, pin placed L arm (NICOLAS GALE APRN) Alcohol Use: None Drug Use: None (NICOLAS GALE APRN) Adult General Chief Complaint Chief Complaint: TOE PROBLEM HPI HPI 88-year-old female presents to ER with complaints of right foot injury which occurred this morning. Patient states she dropped a bottle of freight car cleaner onto the top of her right foot and since has had bruising and swelling to the right great toe into her second and third toe. Patient has been ambulatory since injury w/use of her walker. She reports she took an ibuprofen earlier with some relief in pain. Patient denies any other injury. (NICOLAS GALE APRN) Review of Systems Review of Systems Musculoskeletal: Reports rt foot pain/swelling/bruising Integument: Denies open wounds Neurologic: Denies focal weakness or sensory changes [] All other systems were reviewed and found to be within normal limits, except as documented in this note. (NICOLAS GALE APRN) Allergies Allergies Allergies Coded Allergies Type Severity Reaction Last Updated Verified Sulfa (Sulfonamide Antibiotics) Allergy Intermediate 12/21/14 Yes bacitracin Allergy Intermediate rash 12/21/14 Yes neomycin Allergy Intermediate rash 12/21/14 Yes polymyxin B Allergy Intermediate rash 12/21/14 Yes (DEONTE PADNYA MD) Physical Exam Physical Exam Constitutional: Well developed, well nourished, no acute distress, non-toxic appearance. [] HENT: Normocephalic, atraumatic, oropharynx moist, nose normal. [] Eyes: Pupils equal, conjunctiva normal, no discharge. [] Neck: Normal range of motion, supple, no stridor. [] Cardiovascular: Heart rate regular Lungs & Thorax: Resp. equal/nonlabored Skin: Warm, dry, no erythema Extremities: No cyanosis, no clubbing, ROM intact. Lt LE NL exam. Bilat. dorsalis pedis/posterior tibial. Dorsal surface of rt foot at base of great toe/2-3 with ecchymosis/swelling/tender on palp. Pt able to move toes. No open wounds/palp. deformity. No ankle tenderness/swelling w/full ROM. Neurologic: Alert and oriented X 3, normal motor function, normal sensory function, no focal deficits noted. [] Psychologic: Affect normal, judgement normal, mood normal. [] (NICOLAS GALE APRN) Current Patient Data Vital Signs Vital Signs Date Time Temp Pulse Resp B/P (MAP) Pulse Ox O2 Delivery O2 Flow Rate FiO2 08/05/18 18:07 98.9 104 16 144/67 (92) 98 Room Air 98.9 (DEONTE PANDYA MD) EKG EKG [] (NICOLAS GALE APRN) Radiology/Procedures Radiology/Procedures [] (NICOLAS GALE APRN) Course & Med Decision Making Course & Med Decision Making Pertinent Imaging studies reviewed. (See chart for details) 192: Patient's case was discussed with Dr. Pandya who viewed patient's right foot x-ray with no findings for obvious displaced fracture. This was discussed with pt and her family- also discussed that if symptoms persist advised to have follow-up with orthopedics for reevaluation and further care as additional imaging may be needed. Pt remains PMS intact in rt lower extremity. Pt has walker to use for ambulation. Discussed plans for romero wrap and post op shoe application prior to d/c home. Will provide pt with orthopedic referral info on d/c paperwork. Education provided on use of tylenol for pain. RICE acronym will be provided on d/c paperwork. At time of d/c discussion pt was in no distress w/family at bedside. Patient provided on signs and symptoms to return to ER for and discharge instructions were discussed. Following romero wrap/post op shoe application pt remains PMS intact in rt lower extremity and was ambulatory w/use of walker to bathroom. Pt reported improved pain w/wrap and post op shoe on. (NICOLAS GALE APRN) Course & Med Decision Making Staff Physician Addendum: I was working in the ER during the course of this patient's visit. I was available for consultation as needed, but I was not directly involved in the care of this patient. (DEONTE PANDYA MD) Dragon Disclaimer Dragon Disclaimer This electronic medical record was generated, in whole or in part, using a voice recognition dictation system. (NICOLAS GALE APRN) Departure Departure Impression: Primary Impression: Injury of foot, right Additional Impression: Contusion Disposition: 01 HOME, SELF-CARE Condition: STABLE Referrals: ALICIA NELSON MD (PCP) JERMAINE WEIR MD Patient Instructions: Elastic Bandage and RICE, Foot Contusion Additional Instructions: Use your walker for stability when walking. Tylenol as directed on container for pain as needed. Ice pack to affected area every 3-4 hours for 20-30 minutes at a time. Follow-up with orthopedic doctor if symptoms persist or with concerns. Problem Qualifiers NICOLAS GALE APRN August 05, 2018 18:20 DEONTE PANDYA MD August 10, 2018 11:26
--- NOTE | 2018-08-05 19:40 | RAD ---
FOOT RIGHT 3V History: Bruising and swelling to the first toe.. No evidence of an acute fracture. No evidence of aggressive bone destruction. There are mild degenerative changes. Mild bone demineralization. Alignment appears within normal limits. Calcaneal enthesophytes are noted. Vascular calcification. IMPRESSION: No evidence of acute fracture or dislocation. Electronically signed by: Pernell Gaviria MD (08/05/2018 7:37 PM) [facility]
== END 2018-08-05 20:02 | disposition home or self-care (01) ==
LOC: ER 17:48
DX: S90.111A Contusion of right great toe without damage to nail, initial encounter (principal); K21.9 Gastro-esophageal reflux disease without esophagitis; E11.39 Type 2 diabetes mellitus with other diabetic ophthalmic complication; H40.9 Unspecified glaucoma; I10 Essential (primary) hypertension; Z88.1 Allergy status to other antibiotic agents; Z88.2 Allergy status to sulfonamides; W20.8XXA Other cause of strike by thrown, projected or falling object, initial encounter; Y93.89 Activity, other specified; Y92.89 Other specified places as the place of occurrence of the external cause; Y99.8 Other external cause status
CPT/HCPCS: 73630; 99284

== ENCOUNTER 2018-09-03 08:42 | Emergency (ER) | payer OTHER ==
[~2018-09-03] VITALS: Ht 157.5 cm; Wt 59.0 kg
[2018-09-03] MEDS ORDERED: ONDANSETRON PF 4 MG/2 ML VIAL. IV ONE (09:00)
--- NOTE | 2018-09-03 09:01 | PHYS DOC ---
Past Medical History Past Medical History: Depression, Diabetes-Type II, GERD, Glaucoma, Hypertension, UTI, Other Additional Past Medical Histor: Pt states she has never had tonsils. , osteoperosis Past Surgical History: Other Additional Past Surgical Histo: L)arm Calcium spots removed,Bilat Cataracts, pin placed L arm Alcohol Use: None Drug Use: None Adult General Chief Complaint Chief Complaint: ABDOMINAL PAIN HPI HPI Patient is a 88 year old female with history of diabetes type 2, hypertension, depression, frequent UTIs, who presents to the ED today complaining of mild generalized abdominal pain with nausea that began last night. Patient denies any chest pain or shortness of breath. Denies any fever. She states this pain feels similar to the last time she had a UTI. She also states she could be constipated because this is a chronic issue for her. She states she had a bowel movement yesterday. Denies any hematuria. Review of Systems Review of Systems Constitutional: Denies fever or chills [] Eyes: Denies change in visual acuity, redness, or eye pain [] HENT: Denies nasal congestion or sore throat [] Respiratory: Denies cough or shortness of breath [] Cardiovascular: No additional information not addressed in HPI [] GI: Reports abdominal pain with nausea, denies vomiting, bloody stools or di arrhea [] : Denies dysuria or hematuria [] Musculoskeletal: Denies back pain or joint pain [] Integument: Denies rash or skin lesions [] All other systems were reviewed and found to be within normal limits, except as documented in this note. Current Medications Current Medications Current Medications Medications (Trade) Dose Ordered Sig/Olayinka Start Time Stop Time Status Last Admin Dose Admin Ceftriaxone Sodium (Rocephin) 1 gm 1X ONCE 09/03/18 10:00 09/03/18 10:01 DC 09/03/18 10:09 1 GM Magnesium Citrate (Citroma) 296 ml 1X ONCE 09/03/18 10:00 09/03/18 10:01 DC 09/03/18 10:09 296 ML Ondansetron HCl (Zofran) 4 mg 1X ONCE 09/03/18 09:00 09/03/18 09:01 DC 09/03/18 09:18 4 MG Allergies Allergies Allergies Coded Allergies Type Severity Reaction Last Updated Verified Sulfa (Sulfonamide Antibiotics) Allergy Intermediate 12/21/14 Yes bacitracin Allergy Intermediate rash 12/21/14 Yes neomycin Allergy Intermediate rash 12/21/14 Yes polymyxin B Allergy Intermediate rash 12/21/14 Yes Physical Exam Physical Exam Constitutional: Well developed, well nourished, no acute distress, non-toxic appearance. [] HENT: Normocephalic, atraumatic, bilateral external ears normal, oropharynx moist, no oral exudates, nose normal. [place] Eyes: PERRLA, EOMI, conjunctiva normal, no discharge. [] Neck: Normal range of motion, no tenderness, supple, no stridor. [] Cardiovascular:Heart rate regular rhythm, no murmur [] Lungs & Thorax: Bilateral breath sounds clear to auscultation [] Abdomen: Bowel sounds normal, soft, no tenderness, no masses, no pulsatile masses. [] Skin: Warm, dry, no erythema, no rash. [] Back: No tenderness, no CVA tenderness. [] Extremities: No tenderness, no cyanosis, no clubbing, ROM intact, no edema. [] Neurologic: Alert and oriented X 3, normal motor function, normal sensory function, no focal deficits noted. [] Psychologic: Affect normal, judgement normal, mood normal. [] Current Patient Data Vital Signs Vital Signs Date Time Temp Pulse Resp B/P (MAP) Pulse Ox O2 Delivery O2 Flow Rate FiO2 09/03/18 08:53 98.6 104 18 126/74 (91) Room Air 98.6 Lab Values Laboratory Tests Test 09/03/18 09:00 09/03/18 09:15 Urine Collection Type Unknown Urine Color Yellow Urine Clarity Clear Urine pH 6.5 Urine Specific [place] 1.010 Urine Protein Negative mg/dL (NEG-TRACE) Urine Glucose (UA) Negative mg/dL (NEG) Urine Ketones (Stick) Negative mg/dL (NEG) Urine Blood Negative (NEG) Urine Nitrite Positive (NEG) Urine Bilirubin Negative (NEG) Urine Urobilinogen Dipstick 0.2 mg/dL (0.2 mg/dL) Urine Leukocyte Esterase Large (NEG) Urine RBC 0 /HPF (0-2) Urine WBC 11-20 /HPF (0-4) Urine Bacteria Many /HPF (0-FEW) White Blood Count 9.0 x10^3/uL (4.0-11.0) Red Blood Count 3.99 x10^6/uL (3.50-5.40) Hemoglobin 11.5 g/dL (12.0-15.5) L Hematocrit 35.1 % (36.0-47.0) L Mean Corpuscular Volume 88 fL (79-100) Mean Corpuscular Hemoglobin 29 pg (25-35) Mean Corpuscular Hemoglobin Concent 33 g/dL (31-37) Red Cell Distribution Width 15.9 % (11.5-14.5) H Platelet Count 183 x10^3/uL (140-400) Neutrophils (%) (Auto) 80 % (31-73) H Lymphocytes (%) (Auto) 10 % (24-48) L Monocytes (%) (Auto) 9 % (0-9) Eosinophils (%) (Auto) 1 % (0-3) Basophils (%) (Auto) 1 % (0-3) Neutrophils # (Auto) 7.1 x10^3uL (1.8-7.7) Lymphocytes # (Auto) 0.9 x10^3/uL (1.0-4.8) L Monocytes # (Auto) 0.8 x10^3/uL (0.0-1.1) Eosinophils # (Auto) 0.1 x10^3/uL (0.0-0.7) Basophils # (Auto) 0.1 x10^3/uL (0.0-0.2) Sodium Level 134 mmol/L (136-145) L Potassium Level 3.9 mmol/L (3.5-5.1) Chloride Level 96 mmol/L (98-107) L Carbon Dioxide Level 27 mmol/L (21-32) Anion Gap 11 (6-14) Blood Urea Nitrogen 18 mg/dL (7-20) Creatinine 1.0 mg/dL (0.6-1.0) Estimated GFR (Cockcroft-Gault) 52.4 BUN/Creatinine Ratio 18 (6-20) Glucose Level 160 mg/dL (70-99) H Calcium Level 9.5 mg/dL (8.5-10.1) Total Bilirubin 0.5 mg/dL (0.2-1.0) Aspartate Amino Transferase (AST) 25 U/L (15-37) Alanine Aminotransferase (ALT) 22 U/L (14-59) Alkaline Phosphatase 85 U/L (46-116) Total Protein 6.8 g/dL (6.4-8.2) Albumin 3.4 g/dL (3.4-5.0) Albumin/Globulin Ratio 1.0 (1.0-1.7) Lipase 76 U/L (73-393) Laboratory Tests 09/03/18 09:15 Laboratory Tests 09/03/18 09:15 EKG EKG [] Radiology/Procedures Radiology/Procedures []PROCEDURE: KUB Examination: Single frontal view of the abdomen HISTORY: History of constipation. COMPARISON: 01/26/2014 FINDINGS: The bowel gas pattern appears unremarkable. Moderate amount of stool identified throughout the colon. Severe degenerative changes lumbar spine. IMPRESSION: Moderate amount of stool identified in the colon likely constipation. Electronically signed by: Santos Ambrose MD (09/03/2018 9:26 AM) [facility] DICTATED and SIGNED BY: SANTOS AMBROSE MD DATE: 09/03/18925 Course & Med Decision Making Course & Med Decision Making Pertinent Labs and Imaging studies reviewed. (See chart for details) This is a 88-year-old female patient presenting to the ED today with complaints of abdominal pain with nausea that began yesterday. Patient is concerned she could have a UTI or constipation. Last bowel movement was yesterday. CBC with a normal WBC, CMP-no acute findings. Urinalysis is noted for large amount of leukocytes and nitrites, patient is a febrile. KUB noted for constipation. Patient was given Rocephin in the ED. Offered mag citrate in the ED, she states she doesn't feel she is constipated. We encourage her to take a bottle of mag citrate as soon as she gets home. She was encouraged to continue using her stool softeners. Discharged with cephalexin, follow-up with her PCP in the next 1 week. Provided return precautions. Discharged in stable condition. Dragon Disclaimer Dragon Disclaimer This electronic medical record was generated, in whole or in part, using a voice recognition dictation system. Departure Departure Impression: Primary Impression: UTI (lower urinary tract infection) Additional Impression: Constipation Disposition: HOME, SELF-CARE Condition: STABLE Referrals: ALICIA NELSON MD (PCP) Follow-up in the next 1-2 weeks Patient Instructions: Constipation, Adult, Urinary Tract Infection Additional Instructions: You were evaluated in the emergency room and noted to have urinary tract infection. Your x-ray also shows you are constipated. Take the prescribed antibiotics until completed. Continue taking stool softeners at home. You can also drink the magnesium citrate we provided you in the emergency room today. Follow-up with your doctor in the course of next week. Come back to the ED any point symptoms worsen. Scripts Ondansetron Hcl (ZOFRAN) 4 Mg Tablet 1 TAB PO Q6HRS, #20 TAB Prov: CHRISTIANO PARRISH APRN 09/03/18 Cephalexin (CEPHALEXIN) 500 Mg Tablet 1 TAB PO BID, #14 TAB Prov: CHRISTIANO PARRISH APRN 09/03/18 Problem Qualifiers Additional Impression: Constipation Constipation type: unspecified constipation type Qualified Codes: K59.00 - Constipation, unspecified CHRISTIANO PARRISH APRN Sep 03, 2018 09:01
[2018-09-03 09:10] LABS: BILIRUBIN,URINE NEGATIVE (NEG); CLARITY,URINE CLEAR; COLOR,URINE YELLOW; NITRITE,URINE POSITIVE (NEG); PH,URINE 6.5; PROTEIN,URINE NEGATIVE (NEG-TRACE); UROBILINOGEN,URINE 0.2 mg/dL (0.2 mg/dL)
[2018-09-03 09:22] LABS: BASO # 0.1 x10^3/uL (0.0-0.2); BASO % 1 % (0-3); EOS # 0.1 x10^3/uL (0.0-0.7); EOS % 1 % (0-3); HEMATOCRIT 35.1 % (36.0-47.0); HEMOGLOBIN 11.5 g/dL (12.0-15.5); LYMPH # 0.9 x10^3/uL (1.0-4.8); LYMPH % 10 % (24-48); MEAN CORPUSCULAR HEMOGLOBIN 29 pg (25-35); MEAN CORPUSCULAR HGB CONC 33 g/dL (31-37); MEAN CORPUSCULAR VOLUME 88 fL (79-100); MONO # 0.8 x10^3/uL (0.0-1.1); MONO % 9 % (0-9); NEUT # 7.1 x10^3uL (1.8-7.7); NEUT % 80 % (31-73); PLATELET COUNT 183 x10^3/uL (140-400); RED BLOOD COUNT 3.99 x10^6/uL (3.50-5.40); RED CELL DISTRIBUTION WIDTH 15.9 % (11.5-14.5)
[2018-09-03 09:24] LABS: RBC,URINE 0 /HPF (0-2)
[2018-09-03 09:25] LABS: BACTERIA,URINE MANY /HPF (0-FEW)
--- NOTE | 2018-09-03 09:29 | RAD ---
Examination: Single frontal view of the abdomen HISTORY: History of constipation. COMPARISON: 01/26/2014 FINDINGS: The bowel gas pattern appears unremarkable. Moderate amount of stool identified throughout the colon. Severe degenerative changes lumbar spine. IMPRESSION: Moderate amount of stool identified in the colon likely constipation. Electronically signed by: Santos Ambrose MD (09/03/2018 9:26 AM) [facility]
[2018-09-03 09:32] LABS: CALCIUM 9.5 mg/dL (8.5-10.1); GFR 52.4; POTASSIUM 3.9 mmol/L (3.5-5.1)
[2018-09-03 09:44] LABS: ALBUMIN 3.4 g/dL (3.4-5.0); TOTAL BILIRUBIN 0.5 mg/dL (0.2-1.0); TOTAL PROTEIN 6.8 g/dL (6.4-8.2)
[2018-09-03] MEDS ORDERED: cefTRIAXone IV Push 1 GM VIAL. IVP ONE (10:00)
[2018-09-03] MEDS ORDERED: MAGNESIUM CITRATE 296 ML SOLUTION. PO ONE (10:00)
[2018-09-03] MEDS ORDERED: ONDA4TAB7 PO (10:20)
[2018-09-03] MEDS ORDERED: CEPH500T PO (10:20)
[2018-09-03 10:25] VITALS: BP 146/66
== END 2018-09-03 10:30 | disposition home or self-care (01) ==
LOC: ER 08:42
DX: N39.0 Urinary tract infection, site not specified (principal); K59.00 Constipation, unspecified; K21.9 Gastro-esophageal reflux disease without esophagitis; E11.39 Type 2 diabetes mellitus with other diabetic ophthalmic complication; H40.9 Unspecified glaucoma; Z88.1 Allergy status to other antibiotic agents; Z88.2 Allergy status to sulfonamides
CPT/HCPCS: 36415; 74018; 80053; 81001; 83690; 85025; 87086; 96374; 96375; 99285; J0696; J2405; 87186

== ENCOUNTER 2018-09-06 09:57 | Emergency (ER) | payer OTHER ==
[~2018-09-06] VITALS: Ht 157.5 cm; Wt 59.0 kg
[~2018-09-06 09:57] MED LIST changes: +CEPH500T PO; +ONDA4TAB7 PO
[2018-09-06] MEDS ORDERED: IV NORMAL SALINE 1000ML BAG 1,000 ML IV ONE (10:15)
--- NOTE | 2018-09-06 10:30 | PHYS DOC ---
Past Medical History Past Medical History: Depression, Diabetes-Type II, GERD, Glaucoma, Hypertension, UTI, Other Additional Past Medical Histor: Pt states she has never had tonsils. , osteoperosis Past Surgical History: Other Additional Past Surgical Histo: L)arm Calcium spots removed,Bilat Cataracts, pin placed L arm Alcohol Use: None Drug Use: None Adult General Chief Complaint Chief Complaint: WEAKNESS/GENERALIZED HPI HPI Patient is a 88 year old male with history of diabetes type 2, hypertension, acid reflex, constipation, depression, who presents to the ED today to be evaluated for generalized weakness. Patient states she was seen in the ED 3 days ago, diagnosed with UTI and discharged on cephalexin. She states she was feeling well until this morning she got up to shower then she felt very weak and could not continue with her daily activities. Patient denies any chest pain, denies any shortness of breath. Denies any nausea vomiting. Denies any dizziness. Review of Systems Review of Systems Constitutional: Reports generalized weakness. Denies fever or chills [] Eyes: Denies change in visual acuity, redness, or eye pain [] HENT: Denies nasal congestion or sore throat [] Respiratory: Denies cough or shortness of breath [] Cardiovascular: No additional information not addressed in HPI [] GI: Denies abdominal pain, nausea, vomiting, bloody stools or diarrhea [] : Denies dysuria or hematuria [] Musculoskeletal: Denies back pain or joint pain [] Integument: Denies rash or skin lesions [] Neurologic: Denies headache, focal weakness or sensory changes [] All other systems were reviewed and found to be within normal limits, except as documented in this note. Current Medications Current Medications Current Medications Medications (Trade) Dose Ordered Sig/Olayinka Start Time Stop Time Status Last Admin Dose Admin Sodium Chloride 1,000 ml @ 1,000 mls/hr 1X ONCE 09/06/18 10:15 09/06/18 11:14 DC 09/06/18 11:01 1,000 MLS/HR Allergies Allergies Allergies Coded Allergies Type Severity Reaction Last Updated Verified Sulfa (Sulfonamide Antibiotics) Allergy Intermediate 12/21/14 Yes bacitracin Allergy Intermediate rash 12/21/14 Yes neomycin Allergy Intermediate rash 12/21/14 Yes polymyxin B Allergy Intermediate rash 12/21/14 Yes Physical Exam Physical Exam Constitutional: Well developed, well nourished, no acute distress, non-toxic appearance. [] HENT: Normocephalic, atraumatic, bilateral external ears normal, oropharynx moist, no oral exudates, nose normal. [] Eyes: PERRLA, EOMI, conjunctiva normal, no discharge. [] Neck: Normal range of motion, no tenderness, supple, no stridor. [] Cardiovascular:Heart rate regular rhythm, no murmur [] Lungs & Thorax: Bilateral breath sounds clear to auscultation [] Abdomen: Bowel sounds normal, soft, no tenderness, no masses, no pulsatile masses. [] Skin: Warm, dry, no erythema, no rash. [] Back: No tenderness, no CVA tenderness. [] Extremities: No tenderness, no cyanosis, no clubbing, ROM intact, no edema. [] Neurologic: Alert and oriented X 3, normal motor function, normal sensory function, no focal deficits noted. Cranial nerves II through XII intact Psychologic: Affect normal, judgement normal, mood normal. [] Current Patient Data Vital Signs Vital Signs Date Time Temp Pulse Resp B/P (MAP) Pulse Ox O2 Delivery O2 Flow Rate FiO2 09/06/18 10:15 98.1 107 16 178/74 (108) 96 Room Air 98.1 Lab Values Laboratory Tests Test 09/06/18 10:56 09/06/18 11:50 White Blood Count 5.7 x10^3/uL (4.0-11.0) Red Blood Count 3.82 x10^6/uL (3.50-5.40) Hemoglobin 11.3 g/dL (12.0-15.5) L Hematocrit 34.1 % (36.0-47.0) L Mean Corpuscular Volume 89 fL (79-100) Mean Corpuscular Hemoglobin 30 pg (25-35) Mean Corpuscular Hemoglobin Concent 33 g/dL (31-37) Red Cell Distribution Width 16.0 % (11.5-14.5) H Platelet Count 220 x10^3/uL (140-400) Neutrophils (%) (Auto) 67 % (31-73) Lymphocytes (%) (Auto) 20 % (24-48) L Monocytes (%) (Auto) 10 % (0-9) H Eosinophils (%) (Auto) 2 % (0-3) Basophils (%) (Auto) 1 % (0-3) Neutrophils # (Auto) 3.8 x10^3uL (1.8-7.7) Lymphocytes # (Auto) 1.2 x10^3/uL (1.0-4.8) Monocytes # (Auto) 0.6 x10^3/uL (0.0-1.1) Eosinophils # (Auto) 0.1 x10^3/uL (0.0-0.7) Basophils # (Auto) 0.0 x10^3/uL (0.0-0.2) Prothrombin Time 12.5 SEC (11.7-14.0) Prothrombin Time INR 1.0 (0.8-1.1) Urine Collection Type U cath Urine Color Yellow Urine Clarity Clear Urine pH 7.5 Urine Specific [place] 1.010 Urine Protein Negative mg/dL (NEG-TRACE) Urine Glucose (UA) Negative mg/dL (NEG) Urine Ketones (Stick) Negative mg/dL (NEG) Urine Blood Negative (NEG) Urine Nitrite Negative (NEG) Urine Bilirubin Negative (NEG) Urine Urobilinogen Dipstick 0.2 mg/dL (0.2 mg/dL) Urine Leukocyte Esterase Negative (NEG) Urine RBC 0 /HPF (0-2) Urine WBC 0 /HPF (0-4) Urine Transitional Epithelial Cells Occ /LPF Urine Amorphous Sediment Present /HPF Urine Bacteria 0 /HPF (0-FEW) Lactic Acid Level 0.9 mmol/L (0.4-2.0) Creatine Kinase 101 U/L (26-192) Creatine Kinase MB (Mass) 1.7 ng/mL (0.0-3.6) Creatine Kinase MB Relative Index 1.7 % (0-4) Troponin I Quantitative < 0.017 ng/mL (0.000-0.055) DH-Xre-T-Type Natriuretic Peptide 287 pg/mL (0-449) Thyroid Stimulating Hormone (TSH) 2.319 uIU/mL (0.358-3.74) Sodium Level 140 mmol/L (136-145) Potassium Level 4.3 mmol/L (3.5-5.1) Chloride Level 103 mmol/L (98-107) Carbon Dioxide Level 28 mmol/L (21-32) Anion Gap 9 (6-14) Blood Urea Nitrogen 13 mg/dL (7-20) Creatinine 0.9 mg/dL (0.6-1.0) Estimated GFR (Cockcroft-Gault) 59.2 BUN/Creatinine Ratio 14 (6-20) Glucose Level 104 mg/dL (70-99) H Calcium Level 8.5 mg/dL (8.5-10.1) Magnesium Level 2.0 mg/dL (1.8-2.4) Total Bilirubin 0.2 mg/dL (0.2-1.0) Aspartate Amino Transferase (AST) 21 U/L (15-37) Alanine Aminotransferase (ALT) 20 U/L (14-59) Alkaline Phosphatase 83 U/L (46-116) Total Protein 6.2 g/dL (6.4-8.2) L Albumin 3.2 g/dL (3.4-5.0) L Albumin/Globulin Ratio 1.1 (1.0-1.7) Lipase 96 U/L (73-393) Laboratory Tests 09/06/18 10:56 Laboratory Tests 09/06/18 11:50 EKG EKG 10:[address] Trammell sinus rhythm HR 99 no STEMI Radiology/Procedures Radiology/Procedures [] Course & Med Decision Making Course & Med Decision Making Pertinent Labs and Imaging studies reviewed. (See chart for details) This is a 88-year-old female patient presenting to the ED with generalized weakness since this morning. Patient was diagnosed with UTI 3 days ago. Currently on cephalexin. CT of the head, EKG, chest x-ray, negative for any acute findings. Urine analysis is negative for infection. CBC with normal WBC, CMP would not acute findings. Patient was given IV fluids, on reevaluation she states she feels better. Vitals are stable. Spoke with Dr. Lucius Rodriguez he requested we d/c patient home and she f/u with the clinic. Dragon Disclaimer Dragon Disclaimer This electronic medical record was generated, in whole or in part, using a voice recognition dictation system. Departure Departure Impression: Primary Impression: Generalized weakness Disposition: 01 HOME, SELF-CARE Condition: STABLE Referrals: LUCIUS RODRIGUEZ MD (PCP) follow up in the course of this week Patient Instructions: Weakness, [id number] Additional Instructions: You were seen in the emergency room, your workup was negative for any acute findings. Please follow-up with your own doctor in the course of this week. complete your antibiotics. CHRISTIANO APRRISH APRN Sep 06, 2018 10:30
--- NOTE | 2018-09-06 10:31 | RAD ---
EXAM: CHEST 1 VIEW History: Weakness COMPARISON: 08/21/2015 TECHNIQUE: Single portable radiograph of the chest FINDINGS: The cardiac silhouette is unremarkable. Small nodular calcified granuloma identified in the right upper lobe lung unchanged since 2016. The costophrenic sulci are clear and well demarcated. IMPRESSION: No radiographic evidence of an acute cardiopulmonary process. Electronically signed by: Santos Ambrose MD (09/06/2018 10:28 AM) [place] [id number]
--- NOTE | 2018-09-06 10:48 | RAD ---
CT HEAD WO CONTRAST Indication: Weakness. Exposure: One or more of the following individualized dose reduction techniques were utilized for this examination: 1. Automated exposure control 2. Adjustment of the mA and/or kV according to patient size 3. Use of iterative reconstruction technique. Technique: Standard imaging without intravenous contrast. Comparison with 12/21/2014 images but no available report. No evidence of acute intracranial hemorrhage, mass effect, midline shift or abnormal extra-axial fluid collection. Low-density in the white matter bilaterally, a nonspecific finding, but which is commonly due to chronic small vessel ischemic disease in a patient of this age. Generalized atrophy. The orbits appear symmetric. No prominent scalp swelling. No evidence of acute skull abnormality. Visualized sinuses appear clear. Intracranial arterial calcification. IMPRESSION: Chronic findings, similar to prior study. No acute intracranial hemorrhage or mass effect. Electronically signed by: Pernell Gaviria MD (09/06/2018 10:46 AM) [id number]
[2018-09-06 11:11] LABS: BASO % 1 % (0-3); BILIRUBIN,URINE NEGATIVE (NEG); CLARITY,URINE CLEAR; COLOR,URINE YELLOW; EOS # 0.1 x10^3/uL (0.0-0.7); EOS % 2 % (0-3); HEMATOCRIT 34.1 % (36.0-47.0); HEMOGLOBIN 11.3 g/dL (12.0-15.5); LYMPH # 1.2 x10^3/uL (1.0-4.8); LYMPH % 20 % (24-48); MEAN CORPUSCULAR HEMOGLOBIN 30 pg (25-35); MEAN CORPUSCULAR HGB CONC 33 g/dL (31-37); MEAN CORPUSCULAR VOLUME 89 fL (79-100); MONO # 0.6 x10^3/uL (0.0-1.1); MONO % 10 % (0-9); NEUT # 3.8 x10^3uL (1.8-7.7); NEUT % 67 % (31-73); NITRITE,URINE NEGATIVE (NEG); PH,URINE 7.5; PLATELET COUNT 220 x10^3/uL (140-400); PROTEIN,URINE NEGATIVE (NEG-TRACE); RED BLOOD COUNT 3.82 x10^6/uL (3.50-5.40); UROBILINOGEN,URINE 0.2 mg/dL (0.2 mg/dL); WHITE BLOOD COUNT 5.7 x10^3/uL (4.0-11.0)
[2018-09-06 11:26] LABS: PROTHROMBIN TIME PATIENT 12.5 SEC (11.7-14.0)
[2018-09-06 11:28] LABS: AMORPHOUS SEDIMENT,UR PRESENT /HPF; BACTERIA,URINE 0 /HPF (0-FEW); RBC,URINE 0 /HPF (0-2); WBC,URINE 0 /HPF (0-4)
--- NOTE | 2018-09-06 11:29 | EKG ---
[facility] [address] [place] [address] Test Date: 2018-09-06 Test Time: 10:24:54 Pat Name: JERMAIN SUBRAMANIAN Department: Room: Gender: F Bulb Weeder: : 1930 Requested By: CHRISTIANO PARRISH Order Number: [id number] Reading MD: Measurements Intervals [place] Rate: 99 P: 4 SC: 130 QRS: -31 QRSD: 76 T: 24 QT: 334 QTc: 434 Interpretive Statements SINUS RHYTHM ABNORMAL LEFT AXIS DEVIATION LEFT ANTERIOR FASCICULAR BLOCK ABNORMAL ECG RI6.01 No previous ECG available for comparison
[2018-09-06 12:24] LABS: CALCIUM 8.5 mg/dL (8.5-10.1); CREATININE 0.9 mg/dL (0.6-1.0); GFR 59.2; POTASSIUM 4.3 mmol/L (3.5-5.1)
[2018-09-06 12:29] LABS: ALBUMIN 3.2 g/dL (3.4-5.0); ALBUMIN/GLOBULIN RATIO 1.1 (1.0-1.7); TOTAL BILIRUBIN 0.2 mg/dL (0.2-1.0); TOTAL PROTEIN 6.2 g/dL (6.4-8.2)
[2018-09-06 13:55] VITALS: BP 161/71
== END 2018-09-06 13:59 | disposition home or self-care (01) ==
LOC: ER 09:57
DX: R53.1 Weakness (principal); I10 Essential (primary) hypertension; E11.9 Type 2 diabetes mellitus without complications; K21.9 Gastro-esophageal reflux disease without esophagitis; Z88.1 Allergy status to other antibiotic agents; Z88.2 Allergy status to sulfonamides
CPT/HCPCS: 36415; 70450; 71045; 80053; 81001; 82553; 83605; 83690; 83735; 83880; 84443; 84484; 85025; 85610; 87040; 93005; 99285; J7030

== ENCOUNTER 2018-12-20 12:02 | Emergency (ER) | payer OTHER ==
[~2018-12-20] VITALS: Ht 157.5 cm; Wt 59.1 kg
[~2018-12-20 12:02] MED LIST changes: -OXYB10TA PO; +OXYB10TA2 PO
[2018-12-20] MEDS ORDERED: ONDANSETRON ODT 4 MG TAB.RAPDIS. PO ONE (12:30)
--- NOTE | 2018-12-20 12:45 | PHYS DOC ---
Past Medical History Past Medical History: Depression, Diabetes-Type II, GERD, Glaucoma, Hypertension, UTI, Other Additional Past Medical Histor: Pt states she has never had tonsils. , osteoperosis Past Surgical History: Other Additional Past Surgical Histo: L)arm Calcium spots removed,Bilat Cataracts, pin placed L arm Alcohol Use: None Drug Use: None Adult General Chief Complaint Chief Complaint: MULTIPLE COMPLAINTS HPI HPI Patient is a 88 year old emailed with history of hypertension, diabetes and glaucoma who presents with multiple medical complaints. Patient reports intermittent nausea without vomiting �2 days, hot flashes this morning which have resolved and loose stools. Denies fever, chills, sweats. Denies headache, chest pain palpitations, shortness of breath and cough. No abdominal pain, urinary frequency or dysuria. No other acute symptoms or complaints.[] Review of Systems Review of Systems Review symptoms as per history of present illness. All other systems were reviewed and found to be within normal limits, except as documented in this note. Current Medications Current Medications Current Medications Medications (Trade) Dose Ordered Sig/Olayinka Start Time Stop Time Status Last Admin Dose Admin Ceftriaxone Sodium (Rocephin) 1 gm 1X ONCE 12/20/18 15:15 12/20/18 15:16 DC 12/20/18 14:59 1 GM Ondansetron HCl (Zofran Odt) 4 mg 1X ONCE 12/20/18 12:30 12/20/18 12:31 DC 12/20/18 13:07 4 MG Sodium Chloride 1,000 ml @ 1,000 mls/hr 1X ONCE 12/20/18 14:45 12/20/18 15:44 DC 12/20/18 14:52 1,000 MLS/HR Allergies Allergies Allergies Coded Allergies Type Severity Reaction Last Updated Verified Sulfa (Sulfonamide Antibiotics) Allergy Intermediate 12/21/14 Yes bacitracin Allergy Intermediate rash 12/21/14 Yes neomycin Allergy Intermediate rash 12/21/14 Yes polymyxin B Allergy Intermediate rash 12/21/14 Yes Physical Exam Physical Exam Constitutional: Well developed, well nourished, no acute distress. [] HENT: Normocephalic, atraumatic, bilateral external ears normal, oropharynx mo ist, nose normal. [] Eyes: PERRLA, EOMI, matting of eyelashes lashes. [] Neck: Normal range of motion. [] Cardiovascular:Heart rate regular rhythm, no murmur. [] Lungs & Thorax: Bilateral breath sounds clear to auscultation [] Abdomen: Bowel sounds normal, soft, no tenderness. [] Skin: Warm, dry. [] Back: No tenderness. [] Extremities: No tenderness, no edema. [] Neurologic: Alert and oriented X 3, normal motor function, normal sensory function, no focal deficits noted. [] Psychologic: Affect normal, judgement normal, mood normal. [] Current Patient Data Vital Signs Vital Signs Date Time Temp Pulse Resp B/P (MAP) Pulse Ox O2 Delivery O2 Flow Rate FiO2 12/20/18 12:10 98.0 111 18 164/75 (104) 97 Room Air 98.0 Lab Values Laboratory Tests Test 12/20/18 12:59 12/20/18 13:57 White Blood Count 6.7 x10^3/uL (4.0-11.0) Red Blood Count 4.17 x10^6/uL (3.50-5.40) Hemoglobin 11.8 g/dL (12.0-15.5) L Hematocrit 36.1 % (36.0-47.0) Mean Corpuscular Volume 87 fL (79-100) Mean Corpuscular Hemoglobin 28 pg (25-35) Mean Corpuscular Hemoglobin Concent 33 g/dL (31-37) Red Cell Distribution Width 15.3 % (11.5-14.5) H Platelet Count 183 x10^3/uL (140-400) Neutrophils (%) (Auto) 77 % (31-73) H Lymphocytes (%) (Auto) 13 % (24-48) L Monocytes (%) (Auto) 8 % (0-9) Eosinophils (%) (Auto) 2 % (0-3) Basophils (%) (Auto) 1 % (0-3) Neutrophils # (Auto) 5.1 x10^3/uL (1.8-7.7) Lymphocytes # (Auto) 0.9 x10^3/uL (1.0-4.8) L Monocytes # (Auto) 0.5 x10^3/uL (0.0-1.1) Eosinophils # (Auto) 0.1 x10^3/uL (0.0-0.7) Basophils # (Auto) 0.1 x10^3/uL (0.0-0.2) Sodium Level 138 mmol/L (136-145) Potassium Level 4.3 mmol/L (3.5-5.1) Chloride Level 101 mmol/L (98-107) Carbon Dioxide Level 28 mmol/L (21-32) Anion Gap 9 (6-14) Blood Urea Nitrogen 20 mg/dL (7-20) Creatinine 1.0 mg/dL (0.6-1.0) Estimated GFR (Cockcroft-Gault) 52.4 BUN/Creatinine Ratio 20 (6-20) Glucose Level 107 mg/dL (70-99) H Calcium Level 9.3 mg/dL (8.5-10.1) Total Bilirubin 0.3 mg/dL (0.2-1.0) Aspartate Amino Transferase (AST) 27 U/L (15-37) Alanine Aminotransferase (ALT) 22 U/L (14-59) Alkaline Phosphatase 80 U/L (46-116) Troponin I Quantitative < 0.017 ng/mL (0.000-0.055) Total Protein 6.4 g/dL (6.4-8.2) Albumin 3.5 g/dL (3.4-5.0) Albumin/Globulin Ratio 1.2 (1.0-1.7) Lipase 73 U/L (73-393) Urine Collection Type U cath Urine Color Yellow Urine Clarity Clear Urine pH 6.5 Urine Specific [place] <=1.005 Urine Protein Negative mg/dL (NEG-TRACE) Urine Glucose (UA) Negative mg/dL (NEG) Urine Ketones (Stick) Negative mg/dL (NEG) Urine Blood Negative (NEG) Urine Nitrite Positive (NEG) Urine Bilirubin Negative (NEG) Urine Urobilinogen Dipstick 0.2 mg/dL (0.2 mg/dL) Urine Leukocyte Esterase Moderate (NEG) Urine RBC Rare /HPF (0-2) Urine WBC 1-4 /HPF (0-4) Urine Squamous Epithelial Cells Few /LPF Urine Transitional Epithelial Cells Occ /LPF Urine Renal Epithelial Cells Few /LPF Urine Bacteria Many /HPF (0-FEW) Laboratory Tests 12/20/18 12:59 Laboratory Tests 12/20/18 12:59 EKG EKG [EKG: Sinus tachycardia.] Radiology/Procedures Radiology/Procedures [] Course & Med Decision Making Course & Med Decision Making Pertinent Labs and Imaging studies reviewed. (See chart for details) [IVF and abx given. Patient resting comfortably. Will continue supportive care with PCP follow up. ] Adrienne Disclaimer Adrienne Disclaimer This electronic medical record was generated, in whole or in part, using a voice recognition dictation system. Departure Departure Impression: Primary Impression: UTI (lower urinary tract infection) Disposition: HOME, SELF-CARE Condition: GOOD Referrals: ALICIA NELSON MD (PCP) Patient Instructions: Nausea, Adult, [id number], Urinary Tract Infection, Child Additional Instructions: Please go home and rest, increase fluids and take antibiotics as directed. Follow-up with your PCP in the office in 1-2 days for reevaluation. Return to the ED if new or worsening symptoms. Scripts Cephalexin (KEFLEX) 500 Mg Capsule 1 CAP PO BID, #10 CAP Prov: ALFIE HALL DO 12/20/18 Ondansetron Hcl (ZOFRAN) 4 Mg Tablet 1 TAB PO Q6HRS PRN for NAUSEA, #10 TAB 0 Refills Prov: ALFIE HALL DO 12/20/18 ALFIE HALL DO Dec 20, 2018 12:45
--- NOTE | 2018-12-20 12:58 | RAD ---
CHEST AP ONLY History: Shortness of breath.. Comparison with September 06, 2018. FINDINGS: Cardiomediastinal silhouettes are not enlarged. Mildly prominent reticular markings in both lungs, greatest in the perihilar regions and lung bases. No airspace consolidation. No pleural effusion. No evidence of pneumothorax. IMPRESSION: Mild interstitial infiltrate or edema bilaterally. No consolidating airspace infiltrate. Electronically signed by: Pernell Gaviria MD (12/20/2018 12:55 PM) [id number]
--- NOTE | 2018-12-20 13:01 | EKG ---
[facility] [address] [place] [address] Test Date: 2018-12-20 Test Time: 12:39:02 Pat Name: JERMAIN SUBRAMANIAN Department: Room: Gender: F Handle Attacher: : 1930 Requested By: ALFIE HALL Order Number: [id number] Reading MD: Measurements Intervals [place] Rate: 102 P: 47 VT: 150 QRS: -28 QRSD: 76 T: 52 QT: 326 QTc: 429 Interpretive Statements SINUS TACHYCARDIA LEFT ATRIAL ABNORMALITY LEFTWARD AXIS QRS(T) CONTOUR ABNORMALITY CONSIDER ANTEROSEPTAL MYOCARDIAL DAMAGE ABNORMAL ECG RI6.01 No previous ECG available for comparison
[2018-12-20 13:13] LABS: BASO # 0.1 x10^3/uL (0.0-0.2); BASO % 1 % (0-3); EOS # 0.1 x10^3/uL (0.0-0.7); EOS % 2 % (0-3); HEMATOCRIT 36.1 % (36.0-47.0); HEMOGLOBIN 11.8 g/dL (12.0-15.5); LYMPH # 0.9 x10^3/uL (1.0-4.8); LYMPH % 13 % (24-48); MEAN CORPUSCULAR HEMOGLOBIN 28 pg (25-35); MEAN CORPUSCULAR HGB CONC 33 g/dL (31-37); MEAN CORPUSCULAR VOLUME 87 fL (79-100); MONO # 0.5 x10^3/uL (0.0-1.1); MONO % 8 % (0-9); NEUT # 5.1 x10^3/uL (1.8-7.7); NEUT % 77 % (31-73); PLATELET COUNT 183 x10^3/uL (140-400); RED BLOOD COUNT 4.17 x10^6/uL (3.50-5.40); RED CELL DISTRIBUTION WIDTH 15.3 % (11.5-14.5); WHITE BLOOD COUNT 6.7 x10^3/uL (4.0-11.0)
[2018-12-20 13:15] LABS: CALCIUM 9.3 mg/dL (8.5-10.1); GFR 52.4; POTASSIUM 4.3 mmol/L (3.5-5.1)
[2018-12-20 13:21] LABS: ALBUMIN 3.5 g/dL (3.4-5.0); ALBUMIN/GLOBULIN RATIO 1.2 (1.0-1.7); TOTAL BILIRUBIN 0.3 mg/dL (0.2-1.0); TOTAL PROTEIN 6.4 g/dL (6.4-8.2)
[2018-12-20 14:06] LABS: BILIRUBIN,URINE NEGATIVE (NEG); CLARITY,URINE CLEAR; COLOR,URINE YELLOW; NITRITE,URINE POSITIVE (NEG); PH,URINE 6.5; PROTEIN,URINE NEGATIVE (NEG-TRACE); UROBILINOGEN,URINE 0.2 mg/dL (0.2 mg/dL)
[2018-12-20 14:15] LABS: BACTERIA,URINE MANY /HPF (0-FEW); RBC,URINE RARE /HPF (0-2); SQUAMOUS EPITHELIAL CELL,UR FEW /LPF
[2018-12-20] MEDS ORDERED: IV NORMAL SALINE 1000ML BAG 1,000 ML IV ONE (14:45)
[2018-12-20] MEDS ORDERED: cefTRIAXone IV Push 1 GM VIAL. IVP ONE (15:15)
[2018-12-20 16:00] VITALS: BP 137/77
[2018-12-20] MEDS ORDERED: CEPH-264 PO (16:20)
[2018-12-20] MEDS ORDERED: ONDA4TAB7 PO (16:20)
== END 2018-12-20 16:55 | disposition home or self-care (01) ==
LOC: ER 12:02
DX: N39.0 Urinary tract infection, site not specified (principal); F32.9 Major depressive disorder, single episode, unspecified; E11.9 Type 2 diabetes mellitus without complications; K21.9 Gastro-esophageal reflux disease without esophagitis; I10 Essential (primary) hypertension; Z88.2 Allergy status to sulfonamides; Z88.1 Allergy status to other antibiotic agents
CPT/HCPCS: 36415; 71045; 80053; 81001; 83690; 84484; 85025; 87086; 93005; 96374; 99285; J0696; J7030; Q0162

== ENCOUNTER → 2019-01-23 | Outpatient (CLI) | payer OTHER ==
--- NOTE | 2019-01-23 12:04 | KCIC ---
EXAM: Dual energy x-ray absorptiometry (DEXA). HISTORY: Post menopausal screening. TECHNIQUE: Dual energy x-ray absorptiometry of the lumbar spine and the left hip was performed. T-score of average bone mineral density based was calculated based on standard deviations above or below the expected young adult normal value. Diagnostic definitions were established by the World Health Organization. FINDINGS: The average bone mineral density associated with L2-L4 is 1.173 g/cm^2, corresponding with a T-score of 0.9. These values are somewhat elevated by degenerative sclerosis. The average total bone mineral density associated with the left hip is 0.587 g/cm^2, corresponding with a T-score of -2.9. No comparison examinations are available. Refer to the worksheets for full detail. IMPRESSION: 1. Osteoporosis. Average bone mineral density yields a T-score of -2.5 or less. Fracture risk is high. Electronically signed by: Naida Duckworth MD (01/23/2019 12:01 PM) [facility]
== END | disposition home or self-care (01) ==
LOC: KCIC DEXA 11:21
PROVIDERS: ATTEND Physician Assistant Medical
DX: M81.8 Other osteoporosis without current pathological fracture (principal); M81.0 Age-related osteoporosis without current pathological fracture; Z78.0 Asymptomatic menopausal state
CPT/HCPCS: 77080

== ENCOUNTER 2020-01-11 09:55 | Emergency (ER) | payer MEDICARE, OTHER ==
[~2020-01-11] VITALS: Ht 152.4 cm; Wt 54.0 kg
[~2020-01-11 09:55] MED LIST changes: -ASPI-702 PO; +ASPI-955 PO; +MULT-445 PO; -MULT1TAB52 PO; -OMEP20CA10 PO; +OMEP20CA16 PO; -OXYB10TA2 PO; +OXYB10TA26 PO; +SIMV10TA15 PO; -SIMV10TA3 PO
[2020-01-11 10:44] LABS: BASO # 0.1 x10^3/uL (0.0-0.2); BASO % 1 % (0-3); EOS # 0.1 x10^3/uL (0.0-0.7); EOS % 2 % (0-3); HEMATOCRIT 37.2 % (36.0-47.0); HEMOGLOBIN 12.4 g/dL (12.0-15.5); LYMPH # 2.1 x10^3/uL (1.0-4.8); LYMPH % 27 % (24-48); MEAN CORPUSCULAR HEMOGLOBIN 30 pg (25-35); MEAN CORPUSCULAR HGB CONC 33 g/dL (31-37); MEAN CORPUSCULAR VOLUME 89 fL (79-100); MONO # 0.6 x10^3/uL (0.0-1.1); MONO % 8 % (0-9); NEUT # 5.1 x10^3/uL (1.8-7.7); NEUT % 63 % (31-73); PLATELET COUNT 202 x10^3/uL (140-400); RED BLOOD COUNT 4.16 x10^6/uL (3.50-5.40); RED CELL DISTRIBUTION WIDTH 15.2 % (11.5-14.5)
[2020-01-11 10:45] LABS: BILIRUBIN,URINE NEGATIVE (NEG); CLARITY,URINE CLEAR; COLOR,URINE YELLOW; NITRITE,URINE NEGATIVE (NEG); PH,URINE 7.5 (<5.0-8.0); PROTEIN,URINE NEGATIVE (NEG-TRACE); UROBILINOGEN,URINE 0.2 mg/dL (0.2 mg/dL)
--- NOTE | 2020-01-11 10:53 | RAD ---
CT HEAD WO CONTRAST History: Reason: FELL YESTERDAY, RIGHT SIDE HEAD INJURY, HEADACHE / Spl. Instructions: / History: Comparison: September 06, 2018 Technique: Noncontrast CT imaging was performed of the head. Exposure: One or more of the following individualized dose reduction techniques were utilized for this examination: 1. Automated exposure control 2. Adjustment of the mA and/or kV according to patient size 3. Use of iterative reconstruction technique. Findings: No intracranial hemorrhage. No mass effect. Right lateral scalp soft tissue swelling with small focus of gas. Mild to moderate brain parenchymal volume loss. Mildly dilated lateral and third ventricles, unchanged. Moderate foci of decreased attenuation within the hemispheric white matter, most often due to chronic microscopic ischemia, unchanged. No findings to suggest obstructive hydrocephalus. Imaged orbits are unremarkable. Imaged paranasal sinuses and mastoid air cells are clear. No acute calvarial fracture. TMJ arthropathy. Impression: 1. No acute intracranial abnormality. 2. Right lateral scalp soft tissue injury. 3. Unchanged dilated lateral and third ventricles, may relate to central brain parenchymal volume loss although can be seen with normal pressure hydrocephalus in the appropriate clinical setting. 4. Unchanged sequelae of chronic microvascular ischemia. Electronically signed by: Leonides Miller DO (01/11/2020 10:51 AM) [id number]
[2020-01-11 11:07] LABS: CALCIUM 9.2 mg/dL (8.5-10.1); CREATININE 0.9 mg/dL (0.6-1.0); GFR 59.1; POTASSIUM 4.1 mmol/L (3.5-5.1)
[2020-01-11 11:09] LABS: BACTERIA,URINE MODERATE /HPF (0-FEW)
[2020-01-11 11:10] LABS: RBC,URINE 0 /HPF (0-2)
--- NOTE | 2020-01-11 11:10 | PHYS DOC ---
Past Medical History Past Medical History: Depression, Diabetes-Type II, GERD, Glaucoma, Hypertension, UTI, Other Additional Past Medical Histor: Pt states she has never had tonsils. , osteoperosis Past Surgical History: Other Additional Past Surgical Histo: L)arm Calcium spots removed,Bilat Cataracts, pin placed L arm Smoking Status: Never Smoker Alcohol Use: None Drug Use: None General Adult EDM: Chief Complaint: MECHANICAL FALL HPI: HPI: Patient is a 89 year old female who presented to ER today for evaluation of injury. Patient says she was walking, tripped and fell back will hit her head on the ground yesterday. Patient reports no loss of consciousness. Patient with taken to [facility] where she had CT scan of the head and C-spine came back negative for any acute problem. The laceration on her scalp was prepared over the area yesterday. Patient woke up this morning with more headache, not feeling well, feeling weak so her family brought her here for evaluation. Patient denies any back pain, no chest pain, no abdominal pain, no nausea vomiting. Patient denies any upper or lower extremity pain, no pelvic pa in. Review of Systems: Review of Systems: Constitutional: Denies fever or chills. [] Eyes: Denies change in visual acuity. [] HENT: Denies nasal congestion or sore throat. [] Respiratory: Denies cough or shortness of breath. [] Cardiovascular: Denies chest pain or edema. [] GI: Denies abdominal pain, nausea, vomiting, bloody stools or diarrhea. [] : Denies dysuria. [] Musculoskeletal: Denies back pain or joint pain. [] Integument: Denies rash. [] Neurologic: Positive for headache, positive for general weakness, no focal weakness or numbness. Endocrine: Denies polyuria or polydipsia. [] Lymphatic: Denies swollen glands. [] Psychiatric: Denies depression or anxiety. [] Heart Score: Risk Factors: Risk Factors: DM, Current or recent (<one month) smoker, HTN, HLP, family history of CAD, obesity. Risk Scores: Score 0 - 3: 2.5% MACE over next 6 weeks - Discharge Home Score 4 - 6: 20.3% MACE over next 6 weeks - Admit for Clinical Observation Score 7 - 10: 72.7% MACE over next 6 weeks - Early Invasive Strategies Allergies: Allergies: Allergies Coded Allergies Type Severity Reaction Last Updated Verified Sulfa (Sulfonamide Antibiotics) Allergy Intermediate 12/21/14 Yes bacitracin Allergy Intermediate rash 12/21/14 Yes neomycin Allergy Intermediate rash 12/21/14 Yes polymyxin B Allergy Intermediate rash 12/21/14 Yes Physical Exam: PE: Constitutional: Well developed, well nourished, no acute distress, non-toxic appearance. [] HENT: Normocephalic, wound on the right PARIETAL AREA WITH SUTURES IN PLACE, NO BLEEDING. bilateral external ears normal, oropharynx moist, no oral exudates, nose normal. [] Eyes: PERRLA, EOMI, conjunctiva normal, no discharge. [] Neck: Normal range of motion, no tenderness, supple, no stridor. [] Cardiovascular:Heart rate regular rhythm, no murmur [] Lungs & Thorax: Bilateral breath sounds clear to auscultation [] Abdomen: Bowel sounds normal, soft, no tenderness, no masses, no pulsatile masses. [] Skin: Warm, dry, no erythema, no rash. [] Back: No tenderness, no CVA tenderness. [] Extremities: No tenderness, no cyanosis, no clubbing, ROM intact, no edema. [] Neurologic: Alert and oriented X 3, normal motor function, normal sensory function, no focal deficits noted. [] Psychologic: Affect normal, judgement normal, mood normal. [] Current Patient Data: Labs: Laboratory Tests Test 01/11/20 10:19 White Blood Count 8.0 x10^3/uL (4.0-11.0) Red Blood Count 4.16 x10^6/uL (3.50-5.40) Hemoglobin 12.4 g/dL (12.0-15.5) Hematocrit 37.2 % (36.0-47.0) Mean Corpuscular Volume 89 fL (79-100) Mean Corpuscular Hemoglobin 30 pg (25-35) Mean Corpuscular Hemoglobin Concent 33 g/dL (31-37) Red Cell Distribution Width 15.2 % (11.5-14.5) H Platelet Count 202 x10^3/uL (140-400) Neutrophils (%) (Auto) 63 % (31-73) Lymphocytes (%) (Auto) 27 % (24-48) Monocytes (%) (Auto) 8 % (0-9) Eosinophils (%) (Auto) 2 % (0-3) Basophils (%) (Auto) 1 % (0-3) Neutrophils # (Auto) 5.1 x10^3/uL (1.8-7.7) Lymphocytes # (Auto) 2.1 x10^3/uL (1.0-4.8) Monocytes # (Auto) 0.6 x10^3/uL (0.0-1.1) Eosinophils # (Auto) 0.1 x10^3/uL (0.0-0.7) Basophils # (Auto) 0.1 x10^3/uL (0.0-0.2) Sodium Level 128 mmol/L (136-145) L Potassium Level 4.1 mmol/L (3.5-5.1) Chloride Level 93 mmol/L (98-107) L Carbon Dioxide Level 28 mmol/L (21-32) Anion Gap 7 (6-14) Blood Urea Nitrogen 18 mg/dL (7-20) Creatinine 0.9 mg/dL (0.6-1.0) Estimated GFR (Cockcroft-Gault) 59.1 BUN/Creatinine Ratio 20 (6-20) Glucose Level 68 mg/dL (70-99) L Calcium Level 9.2 mg/dL (8.5-10.1) Magnesium Level Pending Total Bilirubin Pending Aspartate Amino Transferase (AST) Pending Alanine Aminotransferase (ALT) Pending Alkaline Phosphatase Pending Total Protein Pending Albumin Pending Albumin/Globulin Ratio Pending Laboratory Tests 01/11/20 10:19 Laboratory Tests 01/11/20 10:19 Vital Signs: Vital Signs Date Time Temp Pulse Resp B/P (MAP) Pulse Ox O2 Delivery O2 Flow Rate FiO2 01/11/20 10:05 98.5 98 18 194/74 (114) 96 Room Air 98.5 EKG: EKG: [] Radiology/Procedures: Radiology/Procedures: [][facility] [address] [place], [place] [id number] IMAGING REPORT Signed PATIENT: JERMAIN SUBRAMANIAN ACCOUNT: [id number] : 1930 LOCATION: ER AGE: 89 SEX: F EXAM STATUS: REG ER ORD. PHYSICIAN: DELPHINE DEL CID DO REASON: FELL YESTERDAY, RIGHT SIDE HEAD INJURY, HEADACHE PROCEDURE: CT HEAD WO CONTRAST CT HEAD WO CONTRAST History: Reason: FELL YESTERDAY, RIGHT SIDE HEAD INJURY, HEADACHE / Spl. Instructions: / History: Comparison: September 06, 2018 Technique: Noncontrast CT imaging was performed of the head. Exposure: One or more of the following individualized dose reduction techniques were utilized for this examination: 1. Automated exposure control 2. Adjustment of the mA and/or kV according to patient size 3. Use of iterative reconstruction technique. Findings: No intracranial hemorrhage. No mass effect. Right lateral scalp soft tissue swelling with small focus of gas. Mild to moderate brain parenchymal volume loss. Mildly dilated lateral and third ventricles, unchanged. Moderate foci of decreased attenuation within the hemispheric white matter, most often due to chronic microscopic ischemia, unchanged. No findings to suggest obstructive hydrocephalus. Imaged orbits are unremarkable. Imaged paranasal sinuses and mastoid air cells are clear. No acute calvarial fracture. TMJ arthropathy. Impression: 1. No acute intracranial abnormality. 2. Right lateral scalp soft tissue injury. 3. Unchanged dilated lateral and third ventricles, may relate to central brain parenchymal volume loss although can be seen with normal pressure hydrocephalus in the appropriate clinical setting. 4. Unchanged sequelae of chronic microvascular ischemia. Electronically signed by: Leonides Miller DO (01/11/2020 10:51 AM) [id number] DICTATED and SIGNED BY: LEONIDES MILLER DO DATE: 01/11/20 1051 Course & Med Decision Making: Course & Med Decision Making Pertinent Labs and Imaging studies reviewed. (See chart for details) Patient is an 89-year-old female who was evaluated in the ER due to headache, weakness, CT scan head did not show any acute problem. Patient was found to have UTI and low sodium level. Patient was given IV fluid and IV antibiotic in the ER, she will be discharged home, she will need follow-up with her family doctor. Adrienne Disclaimer: Adrienne Disclaimer: This electronic medical record was generated, in whole or in part, using a voice recognition dictation system. Departure Departure Impression: Primary Impression: UTI (lower urinary tract infection) Additional Impressions: Hyponatremia Head injury Disposition: 01 DC HOME SELF CARE/HOMELESS Condition: STABLE Referrals: ALICIA NELSON MD (PCP) follow up with your doctor on Wednesday Patient Instructions: Head Injury, Adult, Hyponatremia, Urinary Tract Infection Additional Instructions: Thank you for visiting our Emergency Department. We appreciate you trusting us with your care. If any additional problems come up don't hesitate to return to visit us. Please follow up with your primary care provider so they can plan additional care if needed and know about the problem that you had. If symptoms worsen come back to the Emergency Department. Any concerning symptoms that start such as chest pain, shortness of air, weakness or numbness on one side of the body, running high fevers or any other concerning symptoms return to the ER. Scripts Cephalexin (KEFLEX) 500 Mg Capsule 1 CAP PO TID for 5 Days, #15 CAP 0 Refills Prov: DELPHINE DEL CID DO 01/11/20 DELPHINE DEL CID DO Jan 11, 2020 11:10
[2020-01-11 11:13] LABS: ALBUMIN 3.5 g/dL (3.4-5.0); ALBUMIN/GLOBULIN RATIO 1.1 (1.0-1.7); MAGNESIUM 2.2 mg/dL (1.8-2.4); TOTAL BILIRUBIN 0.3 mg/dL (0.2-1.0); TOTAL PROTEIN 6.8 g/dL (6.4-8.2)
[2020-01-11] MEDS ORDERED: IV NORMAL SALINE 1000ML BAG 1,000 ML IV ONE (11:30)
[2020-01-11] MEDS ORDERED: cefTRIAXone IV Push 1 GM VIAL. IVP ONE (11:30)
[2020-01-11] MEDS ORDERED: CEPH-264 PO (11:53)
[2020-01-11 12:45] VITALS: BP 145/65
== END 2020-01-11 13:04 | disposition home or self-care (01) ==
LOC: ER 09:55
DX: S01.01XA Laceration without foreign body of scalp, initial encounter (principal); N39.0 Urinary tract infection, site not specified; E87.1 Hypo-osmolality and hyponatremia; F32.9 Major depressive disorder, single episode, unspecified; E11.9 Type 2 diabetes mellitus without complications; K21.9 Gastro-esophageal reflux disease without esophagitis; I10 Essential (primary) hypertension; Z98.890 Other specified postprocedural states; W01.0XXA Fall on same level from slipping, tripping and stumbling without subsequent striking against object, initial encounter; Y93.89 Activity, other specified; Y92.89 Other specified places as the place of occurrence of the external cause; Y99.8 Other external cause status
CPT/HCPCS: 36415; 70450; 80053; 81001; 83735; 85025; 87086; 96361; 96374; 99285; J0696; J7030

== ENCOUNTER 2020-02-23 19:17 | Emergency (ER) | payer MEDICARE ==
[~2020-02-23] VITALS: Ht 157.5 cm; Wt 65.0 kg
[~2020-02-23 19:17] MED LIST changes: -ALEN70TA6 PO; +ALEN70TA60 PO; +AMLO-186 PO; +AMLO-187 PO; -AMLO10TA8 PO; -AMLO5TAB10 PO
[2020-02-23 21:48] LABS: BASO # 0.1 x10^3/uL (0.0-0.2); BASO % 1 % (0-3); EOS # 0.1 x10^3/uL (0.0-0.7); EOS % 1 % (0-3); HEMOGLOBIN 12.6 g/dL (12.0-15.5); LYMPH # 1.6 x10^3/uL (1.0-4.8); LYMPH % 15 % (24-48); MEAN CORPUSCULAR HEMOGLOBIN 30 pg (25-35); MEAN CORPUSCULAR HGB CONC 33 g/dL (31-37); MEAN CORPUSCULAR VOLUME 90 fL (79-100); MONO # 0.8 x10^3/uL (0.0-1.1); MONO % 8 % (0-9); NEUT # 8.1 x10^3/uL (1.8-7.7); NEUT % 76 % (31-73); PLATELET COUNT 206 x10^3/uL (140-400); RED BLOOD COUNT 4.24 x10^6/uL (3.50-5.40); RED CELL DISTRIBUTION WIDTH 14.6 % (11.5-14.5); WHITE BLOOD COUNT 10.7 x10^3/uL (4.0-11.0)
[2020-02-23 21:57] LABS: CALCIUM 9.2 mg/dL (8.5-10.1); CREATININE 0.9 mg/dL (0.6-1.0); GFR 59.1; POTASSIUM 3.9 mmol/L (3.5-5.1)
[2020-02-23 22:03] LABS: ALBUMIN 3.6 g/dL (3.4-5.0); ALBUMIN/GLOBULIN RATIO 1.1 (1.0-1.7); TOTAL BILIRUBIN 0.3 mg/dL (0.2-1.0); TOTAL PROTEIN 6.8 g/dL (6.4-8.2)
--- NOTE | 2020-02-23 22:59 | PHYS DOC ---
Past Medical History Past Medical History: Depression, Diabetes-Type II, GERD, Glaucoma, Hypertension, UTI, Other Additional Past Medical Histor: Pt states she has never had tonsils. , osteoperosis Past Surgical History: Other Additional Past Surgical Histo: L)arm Calcium spots removed,Bilat Cataracts, pin placed L arm Smoking Status: Never Smoker Alcohol Use: None Drug Use: None General Adult EDM: Chief Complaint: ABDOMINAL PAIN HPI: HPI: Patient is a 89 year old female who presents for possible urinary tract infection. Patient states she had nausea this morning while talking with her daughter and proceeded to vomit x1. Patient was seen on February 11, 2020 for a fall. The workup on February 11, 2020 was unremarkable for head, neck, and neurologic injury. Patient was found to have a UTI at that visit and was treated with Keflex for 1 week. Today, the patient reports having no symptoms but her daughter states she has frequent UTI's and thinks she may still have a UTI. Patient reports no pain, discomfort, or urinary frequency or urgency. Review of Systems: Review of Systems: Constitutional: Denies fever or chills. [] Eyes: Denies change in visual acuity. [] HENT: Denies nasal congestion or sore throat. [] Respiratory: Denies cough or shortness of breath. [] Cardiovascular: Denies chest pain or edema. [] GI: Denies abdominal pain, bloody stools or diarrhea. positive vomiting : Denies dysuria. [] Musculoskeletal: Denies back pain or joint pain. [] Integument: Denies rash. [] Neurologic: Denies headache, focal weakness or sensory changes. [] Endocrine: Denies polyuria or polydipsia. [] Lymphatic: Denies swollen glands. [] Psychiatric: Denies depression or anxiety. [] Heart Score: Risk Factors: Risk Factors: DM, Current or recent (<one month) smoker, HTN, HLP, family history of CAD, obesity. Risk Scores: Score 0 - 3: 2.5% MACE over next 6 weeks - Discharge Home Score 4 - 6: 20.3% MACE over next 6 weeks - Admit for Clinical Observation Score 7 - 10: 72.7% MACE over next 6 weeks - Early Invasive Strategies Allergies: Allergies: Allergies Coded Allergies Type Severity Reaction Last Updated Verified Sulfa (Sulfonamide Antibiotics) Allergy Intermediate 9/18/15 Yes bacitracin Allergy Intermediate rash 12/21/14 Yes neomycin Allergy Intermediate rash 12/21/14 Yes polymyxin B Allergy Intermediate rash 12/21/14 Yes Physical Exam: PE: Constitutional: Well developed, well nourished, no acute distress, non-toxic appearance. [] HENT: Normocephalic, atraumatic, bilateral external ears normal, oropharynx moist, no oral exudates, nose normal. [] Eyes: PERRLA, EOMI, conjunctiva normal, no discharge. [] Neck: Normal range of motion, no tenderness, supple, no stridor. [] Cardiovascular:Heart rate regular rhythm, no murmur [] Lungs & Thorax: Bilateral breath sounds clear to auscultation [] Abdomen: Bowel sounds normal, soft, no tenderness, no masses, no pulsatile masses. [] Skin: Warm, dry, no erythema, no rash. [] Back: No tenderness, no CVA tenderness. [] Extremities: No tenderness, no cyanosis, no clubbing, ROM intact, no edema. [] Neurologic: Alert and oriented X 3, normal motor function, normal sensory function, no focal deficits noted. [] Psychologic: Affect normal, judgement normal, mood normal. [] Current Patient Data: Labs: Laboratory Tests Test 02/23/20 21:38 White Blood Count 10.7 x10^3/uL (4.0-11.0) Red Blood Count 4.24 x10^6/uL (3.50-5.40) Hemoglobin 12.6 g/dL (12.0-15.5) Hematocrit 38.0 % (36.0-47.0) Mean Corpuscular Volume 90 fL (79-100) Mean Corpuscular Hemoglobin 30 pg (25-35) Mean Corpuscular Hemoglobin Concent 33 g/dL (31-37) Red Cell Distribution Width 14.6 % (11.5-14.5) H Platelet Count 206 x10^3/uL (140-400) Neutrophils (%) (Auto) 76 % (31-73) H Lymphocytes (%) (Auto) 15 % (24-48) L Monocytes (%) (Auto) 8 % (0-9) Eosinophils (%) (Auto) 1 % (0-3) Basophils (%) (Auto) 1 % (0-3) Neutrophils # (Auto) 8.1 x10^3/uL (1.8-7.7) H Lymphocytes # (Auto) 1.6 x10^3/uL (1.0-4.8) Monocytes # (Auto) 0.8 x10^3/uL (0.0-1.1) Eosinophils # (Auto) 0.1 x10^3/uL (0.0-0.7) Basophils # (Auto) 0.1 x10^3/uL (0.0-0.2) Sodium Level 133 mmol/L (136-145) L Potassium Level 3.9 mmol/L (3.5-5.1) Chloride Level 97 mmol/L (98-107) L Carbon Dioxide Level 30 mmol/L (21-32) Anion Gap 6 (6-14) Blood Urea Nitrogen 13 mg/dL (7-20) Creatinine 0.9 mg/dL (0.6-1.0) Estimated GFR (Cockcroft-Gault) 59.1 BUN/Creatinine Ratio 14 (6-20) Glucose Level 124 mg/dL (70-99) H Calcium Level 9.2 mg/dL (8.5-10.1) Total Bilirubin 0.3 mg/dL (0.2-1.0) Aspartate Amino Transferase (AST) 23 U/L (15-37) Alanine Aminotransferase (ALT) 19 U/L (14-59) Alkaline Phosphatase 98 U/L (46-116) Troponin I Quantitative < 0.017 ng/mL (0.000-0.055) Total Protein 6.8 g/dL (6.4-8.2) Albumin 3.6 g/dL (3.4-5.0) Albumin/Globulin Ratio 1.1 (1.0-1.7) Laboratory Tests 02/23/20 21:38 Laboratory Tests 02/23/20 21:38 Vital Signs: Vital Signs Date Time Temp Pulse Resp B/P (MAP) Pulse Ox O2 Delivery O2 Flow Rate FiO2 02/23/20 19:35 98.5 106 18 147/58 (87) 99 Room Air 98.5 EKG: EKG: [] Radiology/Procedures: Radiology/Procedures: [] Course & Med Decision Making: Course & Med Decision Making Pertinent Labs and Imaging studies reviewed. (See chart for details) []Treated with rocephin Rx macrobid Adrienne Disclaimer: Adrienne Disclaimer: This electronic medical record was generated, in whole or in part, using a voice recognition dictation system. Departure Departure Impression: Primary Impression: UTI (lower urinary tract infection) Disposition: 01 DC HOME SELF CARE/HOMELESS Condition: STABLE Referrals: ALICIA NELSON MD (PCP) Patient Instructions: Urinary Tract Infection Scripts Nitrofurantoin Monohyd/M-Cryst (MACROBID 100 MG CAPSULE) 100 Mg Capsule 1 CAP PO BID for 10 Days, #20 CAP 0 Refills Prov: VERNON MUNOZ DO 02/23/20 VERNON MUNOZ DO Feb 23, 2020 22:59
[2020-02-23 23:28] LABS: BILIRUBIN,URINE NEGATIVE (NEG); CLARITY,URINE CLEAR; COLOR,URINE YELLOW; NITRITE,URINE POSITIVE (NEG); PROTEIN,URINE NEGATIVE (NEG-TRACE); UROBILINOGEN,URINE 0.2 mg/dL (0.2 mg/dL)
[2020-02-23 23:37] LABS: BACTERIA,URINE MANY /HPF (0-FEW); RBC,URINE 0 /HPF (0-2); WBC,URINE >40 /HPF (0-4)
[2020-02-23] MEDS ORDERED: NITR100C62 PO (23:44)
[2020-02-24] MEDS ORDERED: cefTRIAXone IV Push 1 GM VIAL. IVP ONE
[2020-02-24 01:00] VITALS: BP 142/66
== END 2020-02-24 01:10 | disposition home or self-care (01) ==
LOC: ER 19:17
DX: N39.0 Urinary tract infection, site not specified (principal); K21.9 Gastro-esophageal reflux disease without esophagitis; E11.39 Type 2 diabetes mellitus with other diabetic ophthalmic complication; I10 Essential (primary) hypertension; Z88.1 Allergy status to other antibiotic agents; Z88.2 Allergy status to sulfonamides
CPT/HCPCS: 36415; 80053; 81001; 84484; 85025; 87086; 96374; 99284; J0696

== ENCOUNTER 2020-07-29 18:51 | Inpatient (IN) | payer MEDICARE ==
[~2020-07-29] VITALS: Ht 157.5 cm; Wt 51.8 kg
[~2020-07-29 18:51] MED LIST changes: -ALEN70TA60 PO; +ALEN70TA71 PO; +NITR100C62 PO; -NITR25OR2 PO; +NITR25OR6 PO
--- NOTE | 2020-07-29 21:13 | ED.ADGEN ---
Past Medical History Past Medical History: Depression, Diabetes-Type II, GERD, Glaucoma, Hypertension, UTI, Other Additional Past Medical Histor: Pt states she has never had tonsils. , osteoperosis Past Surgical History: Other Additional Past Surgical Histo: L)arm Calcium spots removed,Bilat Cataracts, pin placed L arm Smoking Status: Never Smoker Alcohol Use: None Drug Use: None General Adult EDM: Chief Complaint: NAUSEA/VOMITING/DIARRHEA HPI: HPI: Patient is a 89 year old female, brought to the emergency department by her daughter, with complaints of nausea and a decreased appetite all day. Patient's daughter reports that her mother had diarrhea for 2 days until today, she denies any bloody stools or complaints of abdominal pain. Patient states that she has had some nasal congestion but denies any sore throat, sneezing, or headache. Patient also denies any dizziness, chest pain, shortness of breath, wheezing, dysuria, hematuria, or body aches. Patient reports that she cannot see anything but denies any change in her vision, states that she has not been able to see things normally for a long time. She currently denies any pain. Patient denies any known exposure to COVID-19, she has not been immunized yet. Review of Systems: Review of Systems: Complete ROS is negative unless otherwise noted in HPI. Current Medications: Current Medications Medications (Trade) Dose Ordered Sig/Olayinka Start Time Stop Time Status Last Admin Dose Admin Ceftriaxone Sodium (Rocephin) 1 gm 1X ONCE 07/29/20 23:00 07/29/20 23:01 Ondansetron HCl (Zofran) 4 mg 1X ONCE 07/29/20 21:30 07/29/20 21:31 DC 07/29/20 21:48 4 MG Sodium Chloride 500 ml @ 500 mls/hr 1X ONCE 07/29/20 21:30 07/29/20 22:29 DC 07/29/20 21:50 500 MLS/HR Allergies: Allergies: Allergies Coded Allergies Type Severity Reaction Last Updated Verified Sulfa (Sulfonamide Antibiotics) Allergy Intermediate 12/21/14 Yes bacitracin Allergy Intermediate rash 12/21/14 Yes neomycin Allergy Intermediate rash 12/21/14 Yes polymyxin B Allergy Intermediate rash 12/21/14 Yes Physical Exam: PE: See Above Constitutional: Well developed, well nourished, no acute distress, non-toxic appearance. [] HENT: Normocephalic, atraumatic, bilateral external ears normal, nose normal. [] Eyes: PERRLA, EOMI, conjunctiva normal, no discharge. [] Neck: Normal range of motion, no stridor. [] Cardiovascular:Heart rate regular tachycardic rhythm Lungs & Thorax: Respirations even and unlabored, no retractions, no respiratory distress Abdomen: soft, no tenderness, no rebound tenderness, no guarding, no palpable masses Skin: Warm, dry, no erythema, no rash. [] Extremities: No cyanosis, ROM intact, no edema. [] Neurologic: Alert and oriented X 3, no focal deficits noted. [] Psychologic: Affect normal, judgement normal, mood normal. [] Current Patient Data: Labs: Laboratory Tests Test 07/29/20 21:00 07/29/20 21:20 Urine Collection Type Unknown Urine Color Yellow Urine Clarity Clear Urine pH 6.5 (<5.0-8.0) Urine Specific [place] 1.010 (1.000-1.030) Urine Protein Negative mg/dL (NEG-TRACE) Urine Glucose (UA) Negative mg/dL (NEG) Urine Ketones (Stick) 15 mg/dL (NEG) Urine Blood Negative (NEG) Urine Nitrite Positive (NEG) Urine Bilirubin Negative (NEG) Urine Urobilinogen Dipstick 0.2 mg/dL (0.2 mg/dL) Urine Leukocyte Esterase Small (NEG) Urine RBC 0 /HPF (0-2) Urine WBC 11-20 /HPF (0-4) Urine Squamous Epithelial Cells Few /LPF Urine Bacteria Many /HPF (0-FEW) White Blood Count 9.0 x10^3/uL (4.0-11.0) Red Blood Count 4.35 x10^6/uL (3.50-5.40) Hemoglobin 13.0 g/dL (12.0-15.5) Hematocrit 39.3 % (36.0-47.0) Mean Corpuscular Volume 90 fL (79-100) Mean Corpuscular Hemoglobin 30 pg (25-35) Mean Corpuscular Hemoglobin Concent 33 g/dL (31-37) Red Cell Distribution Width 15.1 % (11.5-14.5) H Platelet Count 201 x10^3/uL (140-400) Neutrophils (%) (Auto) 83 % (31-73) H Lymphocytes (%) (Auto) 11 % (24-48) L Monocytes (%) (Auto) 6 % (0-9) Eosinophils (%) (Auto) 0 % (0-3) Basophils (%) (Auto) 0 % (0-3) Neutrophils # (Auto) 7.5 x10^3/uL (1.8-7.7) Lymphocytes # (Auto) 0.9 x10^3/uL (1.0-4.8) L Monocytes # (Auto) 0.5 x10^3/uL (0.0-1.1) Eosinophils # (Auto) 0.0 x10^3/uL (0.0-0.7) Basophils # (Auto) 0.0 x10^3/uL (0.0-0.2) Sodium Level 131 mmol/L (136-145) L Potassium Level 4.6 mmol/L (3.5-5.1) Chloride Level 96 mmol/L (98-107) L Carbon Dioxide Level 30 mmol/L (21-32) Anion Gap 5 (6-14) L Blood Urea Nitrogen 13 mg/dL (7-20) Creatinine 0.9 mg/dL (0.6-1.0) Estimated GFR (Cockcroft-Gault) 59.0 BUN/Creatinine Ratio 14 (6-20) Glucose Level 172 mg/dL (70-99) H Calcium Level 8.8 mg/dL (8.5-10.1) Magnesium Level 1.8 mg/dL (1.8-2.4) Total Bilirubin 0.6 mg/dL (0.2-1.0) Aspartate Amino Transferase (AST) 25 U/L (15-37) Alanine Aminotransferase (ALT) 20 U/L (14-59) Alkaline Phosphatase 82 U/L (46-116) Total Protein 7.0 g/dL (6.4-8.2) Albumin 3.7 g/dL (3.4-5.0) Albumin/Globulin Ratio 1.1 (1.0-1.7) Lipase 66 U/L (73-393) L Laboratory Tests 07/29/20 21:20 Laboratory Tests 07/29/20 21:20 Vital Signs: Vital Signs Date Time Temp Pulse Resp B/P (MAP) Pulse Ox O2 Delivery O2 Flow Rate FiO2 07/29/20 21:34 98.0 88 19 156/69 (98) 96 Room Air 98.0 EKG: EKG: [] Heart Score: C/O Chest Pain: No Risk Factors: Risk Factors: DM, Current or recent (<one month) smoker, HTN, HLP, family histo ry of CAD, obesity. Risk Scores: Score 0 - 3: 2.5% MACE over next 6 weeks - Discharge Home Score 4 - 6: 20.3% MACE over next 6 weeks - Admit for Clinical Observation Score 7 - 10: 72.7% MACE over next 6 weeks - Early Invasive Strategies Radiology/Procedures: Radiology/Procedures: [] Course & Med Decision Making: Course & Med Decision Making Pertinent Labs and Imaging studies reviewed. (See chart for details) [id number] with Dr. Rodriguez who is the admitting physician, and care was assumed following discussion of patient. Will admit patient for UTI and dehydration Patient's vital signs stable. Patient remains afebrile, appears nontoxic, respirations even and unlabored. Patient will be admitted to the medical telemetry floor. Patient's case and plan of care also discussed with Dr. Glez [] Adrienne Disclaimer: Adrienne Disclaimer: This electronic medical record was generated, in whole or in part, using a voice recognition dictation system. Departure Departure Impression: Primary Impression: UTI (lower urinary tract infection) Additional Impression: Dehydration Disposition: ADMITTED INPATIENT Admitting Physician: Alicia Rodriguez Condition: STABLE Referrals: ALICIA RODRIGUEZ MD (PCP) Problem Qualifiers PILY FRIAS APRN Jul 29, 2020 21:13
[2020-07-29 21:19] LABS: BILIRUBIN,URINE NEGATIVE (NEG); CLARITY,URINE CLEAR; COLOR,URINE YELLOW; NITRITE,URINE POSITIVE (NEG); PH,URINE 6.5 (<5.0-8.0); PROTEIN,URINE NEGATIVE (NEG-TRACE); UROBILINOGEN,URINE 0.2 mg/dL (0.2 mg/dL)
--- NOTE | 2020-07-29 21:24 | EKG ---
[facility] [address] [place] [address] Test Date: 2020-07-29 Test Time: 21:15:42 Pat Name: JERMAIN SUBRAMANIAN Department: Room: Gender: F Car Sander: : 1930 Requested By: PILY FRIAS Order Number: [id number] Reading MD: Measurements Intervals [place] Rate: 105 P: 51 IN: 148 QRS: -40 QRSD: 72 T: 39 QT: 322 QTc: 429 Interpretive Statements SINUS TACHYCARDIA LEFT ATRIAL ABNORMALITY ABNORMAL LEFT AXIS DEVIATION LEFT ANTERIOR FASCICULAR BLOCK QRS(T) CONTOUR ABNORMALITY CONSISTENT WITH ANTEROSEPTAL INFARCT PROBABLY OLD ABNORMAL ECG RI6.02 No previous ECG available for comparison
[2020-07-29 21:25] LABS: BACTERIA,URINE MANY /HPF (0-FEW)
[2020-07-29 21:26] LABS: RBC,URINE 0 /HPF (0-2)
[2020-07-29] MEDS ORDERED: IV NORMAL SALINE 500ML BAG 500 ML IV ONE (21:30)
[2020-07-29] MEDS ORDERED: ONDANSETRON PF 4 MG/2 ML VIAL. IV ONE (21:30)
[2020-07-29 21:36] LABS: BASO % 0 % (0-3); EOS % 0 % (0-3); HEMATOCRIT 39.3 % (36.0-47.0); LYMPH # 0.9 x10^3/uL (1.0-4.8); LYMPH % 11 % (24-48); MEAN CORPUSCULAR HEMOGLOBIN 30 pg (25-35); MEAN CORPUSCULAR HGB CONC 33 g/dL (31-37); MEAN CORPUSCULAR VOLUME 90 fL (79-100); MONO # 0.5 x10^3/uL (0.0-1.1); MONO % 6 % (0-9); NEUT # 7.5 x10^3/uL (1.8-7.7); NEUT % 83 % (31-73); PLATELET COUNT 201 x10^3/uL (140-400); RED BLOOD COUNT 4.35 x10^6/uL (3.50-5.40); RED CELL DISTRIBUTION WIDTH 15.1 % (11.5-14.5)
[2020-07-29 21:44] LABS: CALCIUM 8.8 mg/dL (8.5-10.1); CREATININE 0.9 mg/dL (0.6-1.0); POTASSIUM 4.6 mmol/L (3.5-5.1)
[2020-07-29 21:51] LABS: ALBUMIN 3.7 g/dL (3.4-5.0); ALBUMIN/GLOBULIN RATIO 1.1 (1.0-1.7); MAGNESIUM 1.8 mg/dL (1.8-2.4); TOTAL BILIRUBIN 0.6 mg/dL (0.2-1.0)
[2020-07-29] MEDS: IV NORMAL SALINE 1000ML BAG 1,000 ML IV SCH (22:58)
[2020-07-29] MEDS ORDERED: cefTRIAXone IV Push 1 GM VIAL. IVP ONE (23:00)
[2020-07-30] MEDS ORDERED: ONDANSETRON PF 4 MG/2 ML VIAL. IVP ONE
--- NOTE | 2020-07-30 00:06 | RAD ---
Abdominal Series dated 07/29/2020. No comparison available. Clinical Indication: Abdominal pain. Nausea vomiting. Findings: Single upright PA view the chest shows normal heart and mediastinal contours. The lungs are clear wit hout focal consolidation. Vascular interstitium is within normal limits. Minimal linear opacity at th e left lung base, likely scar or atelectasis. Prominent hiatal hernia. Flat and upright views of the abdomen show nondilated gas filled loops of bowel. No air-fluid level o n the upright view. No abnormal calcifications are identified. There is no evidence of pneumoperitone um. Degenerative change of the thoracolumbar spine with evidence of prior vertebroplasty at L1. Moder ate degenerative change of the bilateral hip joint. Impression chest: No acute radiographic abnormality. Impression abdomen: Non-obstructive bowel gas pattern. Electronically signed by: Pernell Rivers MD (07/30/2020 12:03 AM) DELL
[2020-07-30] MEDS ORDERED: OXYB10TA26 PO (02:55)
[2020-07-30 02:57] VITALS: BP 172/74
[2020-07-30] MEDS: IV NORMAL SALINE 1000ML BAG 1,000 ML IV SCH ×2 (07:00→15:00)
[2020-07-30] MEDS: ONDANSETRON PF 4 MG/2 ML VIAL. IVP PRN ×2 (07:39→16:11)
[2020-07-30 07:46] VITALS: BP 142/71
--- NOTE | 2020-07-30 07:58 | PDOC ---
Provider Note Date of Service: DATE: 07/30/20 TIME: 07:57 Provider Note dictated Justifications for Admission Other Justification ALICIA NELSON MD Jul 30, 2020 07:58
[2020-07-30] MEDS ORDERED: ONDANSETRON ODT 4 MG TAB.RAPDIS. PO PRN (08:15)
[2020-07-30] MEDS: MULTIVITAMIN with MINERAL TABLET. PO SCH (09:00)
[2020-07-30] MEDS: DOCUSATE SODIUM 100 MG CAPSULE. PO SCH ×2 (09:00→20:37)
[2020-07-30] MEDS: PANTOPRAZOLE 40 MG TABLET.DR. PO SCH ×2 (09:00→16:26)
[2020-07-30] MEDS: LOSARTAN POTASSIUM 25 MG TABLET. PO SCH (09:00)
[2020-07-30] MEDS: ASPIRIN CHEWABLE 81 MG TABLET. PO SCH (09:00)
--- NOTE | 2020-07-30 10:02 | HP ---
ADMIT DATE: 07/30/2020 CHIEF COMPLAINT: Weakness. HISTORY OF PRESENT ILLNESS: An 89-year-old lady, came in with generalized weakness and fatigue to the emergency room and after workup, was found to have urinary tract infection as her main problem. She complains of some nausea, but no other specific complaints and denies hematuria, fever, chills, discharge, vomiting. PAST MEDICAL HISTORY: Well documented in the old records. MEDICATIONS: Multiple meds. No known specific abnormalities. SOCIAL HISTORY: She is and lives with family. Nonsmoker, nondrinker. FAMILY HISTORY: Unremarkable. REVIEW OF SYSTEMS: Unremarkable. OBJECTIVE: ENT: All within normal limits. NECK: No masses, nodes or bruits. LUNGS: Clear, without tachypnea. CARDIOVASCULAR: Regular rate. No tachycardia. ABDOMEN: Soft, benign and nontender. BACK: No specific areas of point tenderness or masses. EXTREMITIES: Good pedal and radial pulses. SKIN: Turgor mildly decreased. NEUROLOGIC: Physiologic, weak, nonfocal, oriented x 4. ASSESSMENT: Urinary tract infection, generally weak with advanced age and chronic medical problems, otherwise stable. PLAN: Continue Rocephin and IV fluids regarding her nausea and the results of urine culture. Home meds addressed. JACKIE DR: Felicita TID: [id number]
[2020-07-30] MEDS: POTASSIUM CL 20MEQ D5-0.45NACL 1,000 ML IV SCH ×2 (10:43→20:49)
[2020-07-30] MEDS: METOCLOPRAMIDE HCL 10 MG/2 ML VIAL. IVP PRN ×2 (10:45→20:38)
[2020-07-30 10:51] VITALS: BP 158/75
--- NOTE | 2020-07-30 11:45 | NUR ---
SW following. Discussed with RN, pt from home with daughter, room air, ada diet. PT/OT ordered. Pt uses a walker at home. RN advised no SW needs at this time. SW will continue to follow.
[2020-07-30] MEDS ORDERED: INSULIN LISPRO 300 UNITS/3 ML VIAL. SQ SCH (12:00)
[2020-07-30 14:43] VITALS: BP 121/56
[2020-07-30] MEDS: cefTRIAXone IV Push 1 GM VIAL. IVP SCH (16:07)
[2020-07-30 19:00] VITALS: BP 162/71
[2020-07-30] MEDS: POLYVINYL ALCOHOL 1.4% OPHTH SOLUTION 15ML BOTTLE. OU PRN (20:37)
[2020-07-30] MEDS: LATANOPROST 0.005% OPHTH SOLUTION 2.5ML BOTTLE. OU SCH (20:37)
[2020-07-30] MEDS: LACTOBACILLUS RHAMNOSUS GG 1 CAPSULE. PO SCH (20:37)
[2020-07-30] MEDS: INSULIN GLARGINE SYRINGE. SQ SCH (20:38)
[2020-07-30 23:00] VITALS: BP 158/69
[2020-07-31 02:52] VITALS: BP 150/64
[2020-07-31] MEDS: POTASSIUM CL 20MEQ D5-0.45NACL 1,000 ML IV SCH ×2 (06:18→21:10)
[2020-07-31 07:00] VITALS: BP 145/57
--- NOTE | 2020-07-31 08:35 | PDOC ---
Provider Note Date of Service: DATE: 07/31/20 TIME: 08:34 Provider Note vss, no temp, good output- labs ok , on rocep pending culture, still iv fluid re nausea Justifications for Admission Other Justification ALICIA NELSON MD Jul 31, 2020 08:35
[2020-07-31] MEDS: DOCUSATE SODIUM 100 MG CAPSULE. PO SCH ×2 (08:40→21:10)
[2020-07-31] MEDS: ASPIRIN CHEWABLE 81 MG TABLET. PO SCH (08:40)
[2020-07-31] MEDS: LOSARTAN POTASSIUM 25 MG TABLET. PO SCH (08:41)
[2020-07-31] MEDS: MULTIVITAMIN with MINERAL TABLET. PO SCH (08:41)
[2020-07-31] MEDS: PANTOPRAZOLE 40 MG TABLET.DR. PO SCH ×2 (08:41→15:20)
[2020-07-31] MEDS: LACTOBACILLUS RHAMNOSUS GG 1 CAPSULE. PO SCH ×2 (08:41→21:10)
--- NOTE | 2020-07-31 10:34 | NUR ---
per Dr Rodriguez, tele can be DC'd, it is no longer needed for this pt. Tyrell Lawrence RN
[2020-07-31 10:59] VITALS: BP 152/67
--- NOTE | 2020-07-31 11:38 | NUR ---
SW following. Discussed with RN, pt from home with daughter, room air, ada diet. PT recommending home health. XOCHITL met with pt, pt agreeable and would like to have [facility] who she has had before, and thinks she may be currently having. SW verifying with [facility] if pt is current. Plan is for likely discharge home tomorrow with home health. XOCHITL faxed clinicals to [facility]. RN notified. XOCHITL will continue to follow.
[2020-07-31 15:00] VITALS: BP 152/61
[2020-07-31] MEDS: cefTRIAXone IV Push 1 GM VIAL. IVP SCH (15:20)
[2020-07-31 19:00] VITALS: BP 140/63
[2020-07-31] MEDS: LATANOPROST 0.005% OPHTH SOLUTION 2.5ML BOTTLE. OU SCH (21:00)
[2020-07-31] MEDS: INSULIN GLARGINE SYRINGE. SQ SCH (21:23)
[2020-07-31 23:00] VITALS: BP 152/81
[2020-08-01 03:00] VITALS: BP 146/62
[2020-08-01 07:00] VITALS: BP 143/68
[2020-08-01] MEDS: PANTOPRAZOLE 40 MG TABLET.DR. PO SCH ×2 (07:55→16:30)
--- NOTE | 2020-08-01 08:32 | PDOC ---
Provider Note Date of Service: DATE: 08/01/20 TIME: 08:31 Provider Note vss, no temp, cult pending- will dc iv fluid, cont rocep until culture available Justifications for Admission Other Justification ALICIA NELSON MD Aug 01, 2020 08:32
[2020-08-01] MEDS: LACTOBACILLUS RHAMNOSUS GG 1 CAPSULE. PO SCH ×2 (08:53→21:14)
[2020-08-01] MEDS: ASPIRIN CHEWABLE 81 MG TABLET. PO SCH (08:53)
[2020-08-01] MEDS: DOCUSATE SODIUM 100 MG CAPSULE. PO SCH ×2 (08:53→21:14)
[2020-08-01] MEDS: MULTIVITAMIN with MINERAL TABLET. PO SCH (08:53)
[2020-08-01] MEDS: LOSARTAN POTASSIUM 25 MG TABLET. PO SCH (08:55)
[2020-08-01] MEDS: POLYVINYL ALCOHOL 1.4% OPHTH SOLUTION 15ML BOTTLE. OU PRN ×2 (08:56→16:30)
--- NOTE | 2020-08-01 10:10 | NUR ---
SW following. Discussed with RN, pt accepted with [facility]. Dr. Rodriguez wanting to wait for cultures to come back prior to discharge. SW will continue to follow.
[2020-08-01 11:00] VITALS: BP 158/68
[2020-08-01] MEDS: cefTRIAXone IV Push 1 GM VIAL. IVP SCH (14:28)
[2020-08-01 15:00] VITALS: BP 129/59
--- NOTE | 2020-08-01 18:24 | NUR ---
This RN notified Jena, pt's daughter at [phone] of pt transferring to .
[2020-08-01 20:15] VITALS: BP 142/58
[2020-08-01] MEDS: LATANOPROST 0.005% OPHTH SOLUTION 2.5ML BOTTLE. OU SCH (21:00)
[2020-08-01] MEDS: INSULIN GLARGINE SYRINGE. SQ SCH (21:19)
[2020-08-01 23:00] VITALS: BP 131/53
[2020-08-02 03:00] VITALS: BP 136/53
[2020-08-02 07:00] VITALS: BP 144/56
--- NOTE | 2020-08-02 08:24 | PDOC ---
Provider Note Date of Service: DATE: 08/02/20 TIME: 08:23 Provider Note [id number] Justifications for Admission Other Justification ALICIA NELSON MD Aug 02, 2020 08:24
--- NOTE | 2020-08-02 08:27 | SNU/HH DC ---
DISCHARGE WITH HOME HEALTH DISCHARGE INFORMATION: Final Diagnosis: Problems Medical Problems: (1) Dehydration Status: Acute Condition on Discharge: Stable CODE STATUS: Code Status: DNR/DNI HOME HEALTH: Face to Face: I certify this patient is under my care and that I, or a nurse practitioner or physician's therapy assistant working with me, had a face to face encounter that meets the physician face to face encounter requirements with this patient on []. Medical Complications: DM RN For Eval/Treatment: No Pt Meets Homebound Status: Unsteady balance w/ amb, POST DISCHARGE ORDERS: Activity Instructions for Disc: No restrictions Weight Bearing Status after Di: As tolerated DIET AFTER DISCHARGE: ADA CHECKS AFTER DISCHARGE: Checks after discharge: Check blood press - daily, Check blood sugar, ac/hs TREATMENT/EQUIPMENT ORDERS: Adaptive Equipment Issued: None CERTIFICATION STATEMENT: Certification Statement: Certification Statement: Based on the above finding, I certify that this patient is confined to the home and needs intermittent longterm care, physical therapy and/or speech therapy, or continues to need occupational therapy.~ This patient is under my care, and I have initiated the establishment of the plan of care.~ This patient will be followed by myself or a community physician who will periodically review the plan of care. Home Meds Active Scripts Nitrofurantoin Monohyd/M-Cryst (MACROBID 100 MG CAPSULE) 100 Mg Capsule, 1 CAP PO BID for 10 Days, #20 CAP 0 Refills Prov:VERNON MUNOZ I DO 02/23/20 Cephalexin (KEFLEX) 500 Mg Capsule, 1 CAP PO TID for 5 Days, #15 CAP 0 Refills Prov:DELPHINE DEL CID DO 01/11/20 Cephalexin (KEFLEX) 500 Mg Capsule, 1 CAP PO BID, #10 CAP Prov:ALFIE HALL DO 12/20/18 Ondansetron Hcl (ZOFRAN) 4 Mg Tablet, 1 TAB PO Q6HRS PRN for NAUSEA, #10 TAB 0 Refills Prov:ALFIE HALL DO 12/20/18 Ondansetron Hcl (ZOFRAN) 4 Mg Tablet, 1 TAB PO Q6HRS, #20 TAB Prov:CHRISTIANO PARRISH FLEXO FOLDER GLUER OPERATOR 09/03/18 Cephalexin (CEPHALEXIN) 500 Mg Tablet, 1 TAB PO BID, #14 TAB Prov:CHRISTIANO PARRISH FLEXO FOLDER GLUER OPERATOR 09/03/18 Reported Medications Oxybutynin Chloride (OXYBUTYNIN CHLORIDE ER) 10 Mg Tab.er.24, 1 TAB PO DAILY for overactive bladder, #30 TAB 5 Refills 07/30/20 Docusate Sodium (COLACE) 100 Mg Capsule, 1 CAP PO BID for constipation, #30 CAP 07/02/18 Aspirin (CHILDREN'S ASPIRIN) 81 Mg Tab.chew, 81 MG PO DAILY for , TAB.CHEW 07/02/18 Multivitamin (MULTIVITAMINS) 1 Each Tablet, 1 TAB PO DAILY for , #30 TAB 5 Refills 07/02/18 Insulin Glargine,Hum.rec.anlog (LANTUS SOLOSTAR) 100 Unit/1 Ml Insuln.pen, 7 UNIT SQ QHS for DM, #15 ML 3 Refills 07/02/18 Amlodipine Besylate (AMLODIPINE BESYLATE) 10 Mg Tablet, 10 MG PO DAILY for , TAB 07/02/18 Losartan Potassium (LOSARTAN POTASSIUM ) 25 Mg Tablet, 25 MG PO DAILY for HYPERTENSION, TAB 07/02/18 Ranitidine Hcl (RANITIDINE HCL) 150 Mg Tablet, 150 MG PO BID for , TAB 07/02/18 Pantoprazole Sodium (PROTONIX) 20 Mg Tablet.dr, 40 MG PO BID for , TAB 07/02/18 Insulin Aspart (NOVOLOG) 100 Unit/1 Ml Cartridge, 3 UNIT SQ TIDAC, EACH 10/25/13 Dagmar-3 Fatty Acids (FISH OIL) 500 Mg Capsule.dr, 1000 MG PO DAILY 10/25/13 Latanoprost (LATANOPROST) 2.5 Ml Drops, 1 DROP OP HS, EACH 10/25/13 ALICIA NELSON MD Aug 02, 2020 08:27
[2020-08-02] MEDS: LOSARTAN POTASSIUM 25 MG TABLET. PO SCH (08:53)
[2020-08-02] MEDS: LACTOBACILLUS RHAMNOSUS GG 1 CAPSULE. PO SCH (08:53)
[2020-08-02] MEDS: MULTIVITAMIN with MINERAL TABLET. PO SCH (08:53)
[2020-08-02] MEDS: DOCUSATE SODIUM 100 MG CAPSULE. PO SCH (08:53)
[2020-08-02] MEDS: ASPIRIN CHEWABLE 81 MG TABLET. PO SCH (08:53)
[2020-08-02] MEDS: PANTOPRAZOLE 40 MG TABLET.DR. PO SCH (08:54)
--- NOTE | 2020-08-02 08:59 | NUR ---
Prune juice given (4oz.) at this time as patients' last documented bm was on 07/29/20.
--- NOTE | 2020-08-02 09:12 | DS ---
DATE OF DISCHARGE: 08/02/2020 HOSPITAL COURSE: The patient came in with weakness and general malaise with evidence of urinary tract infection as the main source. Urine grew out E. coli, sensitive to all antibiotics, but Cipro and ampicillin, sulfa and tetracycline. She received IV Rocephin while in the hospital and will be transitioned to nitrofurantoin as an outpatient. Her CBC was unremarkable, blood sugar is mildly elevated consistent with diabetes, the GFR was stable at 60, and acute abdominal series was unremarkable. FINAL DIAGNOSIS: Urinary tract infection. OPERATIONS, PROCEDURES, COMPLICATIONS, CONSULTATIONS: None. DISPOSITION: She will take Macrobid 100 mg twice a day for 3 more days. Home meds remain all the same. Activity as tolerated. Diabetic diet. Prognosis is guarded because of her advanced age. STEFAN DR: Feilcita TID: [id number]
--- NOTE | 2020-08-02 09:52 | NUR ---
SW following. Discussed with RN, pt from home with daughter, room air, ada diet. Discharge orders faxed to [facility]. No further SW needs.
[2020-08-02 10:45] VITALS: BP 149/72
[2020-08-02] MEDS ORDERED: INSULIN LISPRO 300 UNITS/3 ML VIAL. SQ ONE (12:45)
--- NOTE | 2020-08-02 13:15 | NUR ---
PATIENTS DAUGHTER AT THE BEDSIDE, DISCHARGE INSTRUCTIONS GIVEN, QUESTIONS AND CONCERNS ANSWERED, PATIENT/DAUGHTER VERBALIZED UNDERSTANDING OF DISCHARGE INFORMATION INCLUDING TAKING ALL MEDICATIONS INSTRUCTED AND FOLLOWING UP WITH HER PRIMARY PROVIDER IN 1-2 WEEKS. ALL PERSONAL BELONGINGS GATHERED BY THE DAUGHTER AND PLACED IN BAGS FOR DISCHARGE.
--- NOTE | 2020-08-02 13:49 | NUR ---
PATIENT LEAVES THE UNIT PER W/C AND ACCOMPANIED BY THIS RAILROAD CONDUCTOR, EMOTIONAL SUPPORT GIVEN, FOLLOW UP APPOINTMENTS ENCOURAGED.
== END 2020-08-02 13:49 | disposition home health service (06) | DRG 872 ==
LOC: ER 18:51 → ED HOLD 22:38 → 6 SOUTH 07-30 → 4 NORTH 08-01 20:15
PROVIDERS: ADMIT Family Medicine; ATTEND Family Medicine
DX: A41.9 Sepsis, unspecified organism (principal); N39.0 Urinary tract infection, site not specified; E11.9 Type 2 diabetes mellitus without complications; E86.0 Dehydration; I10 Essential (primary) hypertension; F32.9 Major depressive disorder, single episode, unspecified; K21.9 Gastro-esophageal reflux disease without esophagitis; Z88.2 Allergy status to sulfonamides; Z88.8 Allergy status to other drugs, medicaments and biological substances; Z79.899 Other long term (current) drug therapy; B96.20 Unspecified Escherichia coli [E. coli] as the cause of diseases classified elsewhere
CPT/HCPCS: 36415; 74022; 80053; 81001; 82962; 83690; 83735; 85025; 87086; 93005; 96361; 96374; 96375; 96376; 99285; J0696; J1815; J2405; J2765; J3480; J7030; J7040; 97116-GP; 97530-GO; 97530-GP; 97535-GO; G0378

== ENCOUNTER 2020-10-30 15:40 | Emergency (ER) | payer MEDICARE ==
[~2020-10-30] VITALS: Ht 157.5 cm; Wt 56.8 kg
--- NOTE | 2020-10-31 00:40 | ED.ADGEN ---
Past Medical History Past Medical History: Depression, Diabetes-Type II, GERD, Glaucoma, Hypertension, UTI, Other Additional Past Medical Histor: Pt states she has never had tonsils. , osteoperosis Past Surgical History: Other Additional Past Surgical Histo: Vericose vein removal, "calcium removed from a few places" Smoking Status: Never Smoker Alcohol Use: None Drug Use: None General Adult EDM: Chief Complaint: NAUSEA/VOMITING/DIARRHEA HPI: HPI: Patient is a 89 year old female coming in for nausea throughout the day. Patient with history of fluid overload will flu rule ago for UTI and states that after that she was having some episodes of vomiting for about 2 days decreased p.o. intake, after that she was feeling better and back to normal, eating normally. Today has had nausea and very little p.o. intake because it makes nausea worse. Denies any pain. Got her [employer] Covid vaccine. Denies any diarrhea, had a normal bowel movement today. Denies any urinary complaints. Review of Systems: Review of Systems: All other systems within normal limits except for as noted in the HPI Current Medications: Current Medications Medications (Trade) Dose Ordered Sig/Olayinka Start Time Stop Time Status Last Admin Dose Admin Ondansetron HCl (Zofran Odt) 4 mg 1X ONCE 10/31/20 02:30 10/31/20 02:31 UNV Ondansetron HCl (Zofran) 4 mg 1X ONCE 10/31/20 01:00 10/31/20 01:01 DC Sodium Chloride 500 ml @ 500 mls/hr 1X ONCE 10/31/20 01:00 10/31/20 01:59 DC Allergies: Allergies: Allergies Coded Allergies Type Severity Reaction Last Updated Verified Sulfa (Sulfonamide Antibiotics) Allergy Intermediate 12/21/14 Yes bacitracin Allergy Intermediate rash 12/21/14 Yes neomycin Allergy Intermediate rash 12/21/14 Yes polymyxin B Allergy Intermediate rash 12/21/14 Yes Physical Exam: PE: Constitutional: Well developed, well nourished, no acute distress, non-toxic appearance. [] HENT: Normocephalic, atraumatic, bilateral external ears normal, nose normal. [] Eyes: PERRLA, conjunctiva normal, no discharge. [] Neck: No rigidity, supple, no stridor. [] Cardiovascular: Regular rate and rhythm, brisk cap refill [] Lungs & Thorax: Non labored symmetric respirations, no tachypnea or respiratory distress [] Abdomen: Soft, nondistended, no tenderness to palpation. Skin: Warm, dry, no erythema, no rash. [] Back: Unremarkable Extremities: No deformities, range of motion grossly intact, no lower extremity edema [] Neurologic: Alert and oriented X 3, no focal deficits noted. [] Psychologic: Affect normal, judgement normal, mood normal. [] Current Patient Data: Labs: Laboratory Tests Test 10/30/20 21:06 10/31/20 01:25 Urine Collection Type Unknown Urine Color Yellow Urine Clarity Cloudy Urine pH 7.5 (<5.0-8.0) Urine Specific [place] <=1.005 (1.000-1.030) Urine Protein Negative mg/dL (NEG-TRACE) Urine Glucose (UA) Negative mg/dL (NEG) Urine Ketones (Stick) Negative mg/dL (NEG) Urine Blood Negative (NEG) Urine Nitrite Negative (NEG) Urine Bilirubin Negative (NEG) Urine Urobilinogen Dipstick 0.2 mg/dL (0.2 mg/dL) Urine Leukocyte Esterase Large (NEG) Urine RBC Rare /HPF (0-2) Urine WBC 5-10 /HPF (0-4) Urine Squamous Epithelial Cells None /LPF Urine Bacteria Many /HPF (0-FEW) White Blood Count 7.0 x10^3/uL (4.0-11.0) Red Blood Count 4.01 x10^6/uL (3.50-5.40) Hemoglobin 12.2 g/dL (12.0-15.5) Hematocrit 36.9 % (36.0-47.0) Mean Corpuscular Volume 92 fL (79-100) Mean Corpuscular Hemoglobin 30 pg (25-35) Mean Corpuscular Hemoglobin Concent 33 g/dL (31-37) Red Cell Distribution Width 14.6 % (11.5-14.5) H Platelet Count 173 x10^3/uL (140-400) Neutrophils (%) (Auto) 72 % (31-73) Lymphocytes (%) (Auto) 17 % (24-48) L Monocytes (%) (Auto) 10 % (0-9) H Eosinophils (%) (Auto) 1 % (0-3) Basophils (%) (Auto) 1 % (0-3) Neutrophils # (Auto) 5.1 x10^3/uL (1.8-7.7) Lymphocytes # (Auto) 1.2 x10^3/uL (1.0-4.8) Monocytes # (Auto) 0.7 x10^3/uL (0.0-1.1) Eosinophils # (Auto) 0.1 x10^3/uL (0.0-0.7) Basophils # (Auto) 0.0 x10^3/uL (0.0-0.2) Sodium Level 134 mmol/L (136-145) L Potassium Level 4.1 mmol/L (3.5-5.1) Chloride Level 97 mmol/L (98-107) L Carbon Dioxide Level 27 mmol/L (21-32) Anion Gap 10 (6-14) Blood Urea Nitrogen 14 mg/dL (7-20) Creatinine 0.8 mg/dL (0.6-1.0) Estimated GFR (Cockcroft-Gault) 67.5 BUN/Creatinine Ratio 18 (6-20) Glucose Level 205 mg/dL (70-99) H Calcium Level 9.0 mg/dL (8.5-10.1) Total Bilirubin 0.4 mg/dL (0.2-1.0) Aspartate Amino Transferase (AST) 19 U/L (15-37) Alanine Aminotransferase (ALT) 21 U/L (14-59) Alkaline Phosphatase 81 U/L (46-116) Troponin I Quantitative < 0.017 ng/mL (0.000-0.055) Total Protein 6.0 g/dL (6.4-8.2) L Albumin 3.2 g/dL (3.4-5.0) L Albumin/Globulin Ratio 1.1 (1.0-1.7) Lipase 60 U/L (73-393) L Laboratory Tests 10/31/20 01:25 Laboratory Tests 10/31/20 01:25 Vital Signs: Vital Signs Date Time Temp Pulse Resp B/P (MAP) Pulse Ox O2 Delivery O2 Flow Rate FiO2 10/31/20 01:11 95 19 137/64 (88) 95 Room Air 10/30/20 23:59 98.9 98.9 EKG: EKG: Sinus rhythm, heart rate 90 bpm, left axis deviation, no ST elevation or depression, no ectopy. [] Heart Score: C/O Chest Pain: No Risk Factors: Risk Factors: DM, Current or recent (<one month) smoker, HTN, HLP, family history of CAD, obesity. Risk Scores: Score 0 - 3: 2.5% MACE over next 6 weeks - Discharge Home Score 4 - 6: 20.3% MACE over next 6 weeks - Admit for Clinical Observation Score 7 - 10: 72.7% MACE over next 6 weeks - Early Invasive Strategies Radiology/Procedures: Radiology/Procedures: [] Course & Med Decision Making: Course & Med Decision Making Pertinent Labs and Imaging studies reviewed. (See chart for details) [] Dragon Disclaimer: Dragon Disclaimer: This electronic medical record was generated, in whole or in part, using a voice recognition dictation system. Departure Departure Impression: Primary Impression: Nausea & vomiting Additional Impression: Urinary tract infection Disposition: HOME / SELF CARE / HOMELESS Condition: STABLE Referrals: ALICIA NELSON MD (PCP) Patient Instructions: Nausea and Vomiting Scripts Nitrofurantoin Monohyd/M-Cryst (MACROBID 100 MG CAPSULE) 100 Mg Capsule 1 CAP PO BID for antibiotic for 5 Days, #10 CAP 0 Refills Prov: KORIN SARAVIA MD 10/31/20 Ondansetron (ONDANSETRON ODT) 4 Mg Tab.rapdis 1 TAB PO PRN Q6-8HRS PRN for NAUSEA, #16 TAB Prov: KORIN SARAVIA MD 10/31/20 Problem Qualifiers KORIN SARAVIA MD Oct 31, 2020 00:40
[2020-10-31 00:50] LABS: BILIRUBIN,URINE NEGATIVE (NEG); CLARITY,URINE CLOUDY; COLOR,URINE YELLOW; NITRITE,URINE NEGATIVE (NEG); PH,URINE 7.5 (<5.0-8.0); PROTEIN,URINE NEGATIVE (NEG-TRACE); UROBILINOGEN,URINE 0.2 mg/dL (0.2 mg/dL)
[2020-10-31 01:00] LABS: RBC,URINE RARE /HPF (0-2)
[2020-10-31] MEDS ORDERED: IV NORMAL SALINE 500ML BAG 500 ML IV ONE (01:00)
[2020-10-31] MEDS ORDERED: ONDANSETRON PF 4 MG/2 ML VIAL. IVP ONE (01:00)
[2020-10-31 01:01] LABS: BACTERIA,URINE MANY /HPF (0-FEW)
[2020-10-31 01:42] LABS: BASO % 1 % (0-3); EOS # 0.1 x10^3/uL (0.0-0.7); EOS % 1 % (0-3); HEMATOCRIT 36.9 % (36.0-47.0); HEMOGLOBIN 12.2 g/dL (12.0-15.5); LYMPH # 1.2 x10^3/uL (1.0-4.8); LYMPH % 17 % (24-48); MEAN CORPUSCULAR HEMOGLOBIN 30 pg (25-35); MEAN CORPUSCULAR HGB CONC 33 g/dL (31-37); MEAN CORPUSCULAR VOLUME 92 fL (79-100); MONO # 0.7 x10^3/uL (0.0-1.1); MONO % 10 % (0-9); NEUT # 5.1 x10^3/uL (1.8-7.7); NEUT % 72 % (31-73); PLATELET COUNT 173 x10^3/uL (140-400); RED BLOOD COUNT 4.01 x10^6/uL (3.50-5.40); RED CELL DISTRIBUTION WIDTH 14.6 % (11.5-14.5)
[2020-10-31 01:51] LABS: CREATININE 0.8 mg/dL (0.6-1.0); GFR 67.5; POTASSIUM 4.1 mmol/L (3.5-5.1)
[2020-10-31 01:57] LABS: ALBUMIN 3.2 g/dL (3.4-5.0); ALBUMIN/GLOBULIN RATIO 1.1 (1.0-1.7); TOTAL BILIRUBIN 0.4 mg/dL (0.2-1.0)
[2020-10-31] MEDS ORDERED: NITR100C62 PO (02:21)
[2020-10-31] MEDS ORDERED: ONDA4TAB12 PO (02:21)
[2020-10-31 02:55] VITALS: BP 161/70
[2020-10-31] MEDS ORDERED: ONDANSETRON ODT 4 MG TAB.RAPDIS. PO ONE (03:00)
--- NOTE | 2020-10-31 05:32 | EKG ---
[facility] [address] [place] [address] Test Date: 2020-10-31 Test Time: 01:07:09 Pat Name: JERMAIN SUBRAMANIAN Department: Room: Gender: F Synthetic Chemist: : 1930 Requested By: KORIN SARAVIA Order Number: [id number] Reading MD: Measurements Intervals [place] Rate: 92 P: 41 WA: 142 QRS: -40 QRSD: 74 T: 26 QT: 342 QTc: 428 Interpretive Statements SINUS RHYTHM LEFT ATRIAL ABNORMALITY ABNORMAL LEFT AXIS DEVIATION LEFT ANTERIOR FASCICULAR BLOCK QRS(T) CONTOUR ABNORMALITY CONSISTENT WITH ANTEROSEPTAL INFARCT AGE UNDETERMINED ABNORMAL ECG RI6.02 No previous ECG available for comparison
== END 2020-10-31 02:55 | disposition home or self-care (01) ==
LOC: ER 15:40
DX: N39.0 Urinary tract infection, site not specified (principal); R11.2 Nausea with vomiting, unspecified; I10 Essential (primary) hypertension; E11.39 Type 2 diabetes mellitus with other diabetic ophthalmic complication; K21.9 Gastro-esophageal reflux disease without esophagitis; Z88.1 Allergy status to other antibiotic agents; Z88.2 Allergy status to sulfonamides; Z88.8 Allergy status to other drugs, medicaments and biological substances
CPT/HCPCS: 36415; 80053; 81001; 83690; 84484; 85025; 87086; 93005; 99285-25

== ENCOUNTER 2020-12-22 16:11 | Emergency (ER) | payer MEDICARE ==
[~2020-12-22] VITALS: Ht 157.5 cm; Wt 55.0 kg
[~2020-12-22 16:11] MED LIST changes: -ASPI-955 PO; +ASPI81TA48 PO; +ONDA4TAB12 PO
[2020-12-22 20:26] LABS: BILIRUBIN,URINE NEGATIVE (NEG); CLARITY,URINE CLEAR; COLOR,URINE YELLOW; NITRITE,URINE NEGATIVE (NEG); PROTEIN,URINE NEGATIVE (NEG-TRACE); UROBILINOGEN,URINE 0.2 mg/dL (0.2 mg/dL)
[2020-12-22 20:31] LABS: BACTERIA,URINE 0 /HPF (0-FEW); RBC,URINE 0 /HPF (0-2)
[2020-12-22] MEDS ORDERED: IV NORMAL SALINE 500ML BAG 500 ML IV ONE (20:45)
[2020-12-22 21:13] LABS: BASO # 0.1 x10^3/uL (0.0-0.2); BASO % 1 % (0-3); EOS # 0.1 x10^3/uL (0.0-0.7); EOS % 2 % (0-3); HEMATOCRIT 36.3 % (36.0-47.0); LYMPH # 1.5 x10^3/uL (1.0-4.8); LYMPH % 24 % (24-48); MEAN CORPUSCULAR HEMOGLOBIN 30 pg (25-35); MEAN CORPUSCULAR HGB CONC 33 g/dL (31-37); MEAN CORPUSCULAR VOLUME 91 fL (79-100); MONO # 0.7 x10^3/uL (0.0-1.1); MONO % 11 % (0-9); NEUT # 3.9 x10^3/uL (1.8-7.7); NEUT % 62 % (31-73); PLATELET COUNT 191 x10^3/uL (140-400); RED CELL DISTRIBUTION WIDTH 14.5 % (11.5-14.5); WHITE BLOOD COUNT 6.3 x10^3/uL (4.0-11.0)
--- NOTE | 2020-12-22 21:14 | PHYS DOC ---
Past Medical History Past Medical History: Depression, Diabetes-Type II, GERD, Glaucoma, Hyper tension, UTI, Other Additional Past Medical Histor: Pt states she has never had tonsils. , osteoperosis Past Surgical History: Other Additional Past Surgical Histo: Vericose vein removal, "calcium removed from a few places" Smoking Status: Never Smoker Alcohol Use: None Drug Use: None General Adult EDM: Chief Complaint: NAUSEA/VOMITING/DIARRHEA HPI: HPI: Patient is a 89 year old female who presents with 1 day of urinary frequency and nausea. She also planes of left ear ache. Patient's daughter brought her in to have her urine and ear check. Patient denies abdominal pain, vomiting, fever, body aches, chest pain, shortness of air, cough, burning with urination, back pain, dizziness. She has a history of diabetes, glaucoma, hypertension, GERD, varicose veins. Denies any pain at this time. Review of Systems: Review of Systems: Constitutional: Denies fever or chills. [] Eyes: Denies change in visual acuity. [] HENT: Denies nasal congestion or sore throat. + Left earache [] Respiratory: Denies cough or shortness of breath. [] Cardiovascular: Denies chest pain or edema. [] GI: Denies abdominal pain, +nausea, denies vomiting, bloody stools or d iarrhea. [] : Denies dysuria. + Urinary frequency [] Musculoskeletal: Denies back pain or joint pain. [] Integument: Denies rash. [] Neurologic: Denies headache, focal weakness or sensory changes. [] Endocrine: Denies polyuria or polydipsia. [] Lymphatic: Denies swollen glands. [] Psychiatric: Denies depression or anxiety. [] Heart Score: C/O Chest Pain: No Current Medications: Current Medications Medications (Trade) Dose Ordered Sig/Olayinka Start Time Stop Time Status Last Admin Dose Admin Sodium Chloride 500 ml @ 500 mls/hr 1X ONCE 12/22/20 20:45 12/22/20 21:44 Allergies: Allergies: Allergies Coded Allergies Type Severity Reaction Last Updated Verified Sulfa (Sulfonamide Antibiotics) Allergy Intermediate 12/21/14 Yes bacitracin Allergy Intermediate rash 12/21/14 Yes neomycin Allergy Intermediate rash 12/21/14 Yes polymyxin B Allergy Intermediate rash 12/21/14 Yes Physical Exam: PE: Constitutional: Well developed, well nourished, no acute distress, non-toxic appearance. [] HENT: Normocephalic, atraumatic, bilateral external ears normal, oropharynx moist, no oral exudates, nose normal. [] Eyes: PERRLA, EOMI, conjunctiva normal, no discharge. [] Neck: Normal range of motion, no tenderness, supple, no stridor. [] Cardiovascular:Heart rate regular tachycardia rhythm, no murmur [] Lungs & Thorax: Bilateral breath sounds clear to auscultation [] Abdomen: Bowel sounds normal, soft, no tenderness, no masses, no pulsatile masses. [] Skin: Warm, dry, no erythema, no rash. [] Back: No tenderness, no CVA tenderness. [] Extremities: No tenderness, no cyanosis, no clubbing, ROM intact, no edema. [] Neurologic: Alert and oriented X 3, normal motor function, normal sensory functi on, no focal deficits noted. [] Psychologic: Affect normal, judgement normal, mood normal. [] Current Patient Data: Labs: Laboratory Tests Test 12/22/20 19:30 Urine Collection Type Unknown Urine Color Yellow Urine Clarity Clear Urine pH 7.0 (<5.0-8.0) Urine Specific [place] <=1.005 (1.000-1.030) Urine Protein Negative mg/dL (NEG-TRACE) Urine Glucose (UA) Negative mg/dL (NEG) Urine Ketones (Stick) Negative mg/dL (NEG) Urine Blood Negative (NEG) Urine Nitrite Negative (NEG) Urine Bilirubin Negative (NEG) Urine Urobilinogen Dipstick 0.2 mg/dL (0.2 mg/dL) Urine Leukocyte Esterase Negative (NEG) Urine RBC 0 /HPF (0-2) Urine WBC 1-4 /HPF (0-4) Urine Bacteria 0 /HPF (0-FEW) Vital Signs: Vital Signs Date Time Temp Pulse Resp B/P (MAP) Pulse Ox O2 Delivery O2 Flow Rate FiO2 12/22/20 19:52 101 18 171/77 (108) 97 Room Air 12/22/20 19:40 98.4 98.4 EKG: EKG: [] Radiology/Procedures: Radiology/Procedures: [] Course & Med Decision Making: Course & Med Decision Making Pertinent Labs and Imaging studies reviewed. (See chart for details) See HPI. Alert and oriented X4. Speaks in full clear sentences. Skin pink warm and dry. Abdomen soft and nontender. Urinalysis shows no infection. She is likely tachycardic. I have ordered 500 mL bolus for her. Bilateral t ympanic's white. Afebrile. Urine shows no infection. Blood work is unremarkable. Patient's heart rate has come down to the 90s. She will be discharged home and follow-up with her primary care provider. [] Dragon Disclaimer: Dragon Disclaimer: This electronic medical record was generated, in whole or in part, using a voice recognition dictation system. Departure Departure Impression: Primary Impression: Ear pain, left Additional Impression: Urinary symptom or sign Disposition: 01 HOME / SELF CARE / HOMELESS Condition: STABLE Referrals: ALICIA NELSON MD (PCP) Patient Instructions: Urinary Frequency Additional Instructions: Follow-up with primary care provider soon as possible. Drink plenty of fluids. If you begin vomiting or running a fever return emergency room. NALLELY ROTHMAN COLLISION WORKER Dec 22, 2020 21:14
[2020-12-22 21:23] LABS: CALCIUM 8.2 mg/dL (8.5-10.1); CREATININE 0.9 mg/dL (0.6-1.0); POTASSIUM 4.3 mmol/L (3.5-5.1)
[2020-12-22 21:30] LABS: ALBUMIN 3.1 g/dL (3.4-5.0); TOTAL BILIRUBIN 0.3 mg/dL (0.2-1.0); TOTAL PROTEIN 6.2 g/dL (6.4-8.2)
[2020-12-22 21:49] VITALS: BP 167/70
== END 2020-12-22 22:34 | disposition home or self-care (01) ==
LOC: ER 16:11
DX: H92.02 Otalgia, left ear (principal); R35.0 Frequency of micturition; R11.0 Nausea; K21.9 Gastro-esophageal reflux disease without esophagitis; E11.39 Type 2 diabetes mellitus with other diabetic ophthalmic complication; H42 Glaucoma in diseases classified elsewhere; I10 Essential (primary) hypertension; Z87.440 Personal history of urinary (tract) infections; Z88.2 Allergy status to sulfonamides; Z88.1 Allergy status to other antibiotic agents; Z88.8 Allergy status to other drugs, medicaments and biological substances
CPT/HCPCS: 36415; 80053; 81001; 85025; 99283; J7040

== ENCOUNTER 2021-01-18 20:59 | Observation (INO) | payer MEDICARE ==
[~2021-01-18] VITALS: Ht 157.5 cm; Wt 54.9 kg
--- NOTE | 2021-01-18 21:52 | PHYS DOC ---
Past Medical History Past Medical History: Depression, Diabetes-Type II, GERD, Glaucoma, Hyper tension, UTI, Other Additional Past Medical Histor: Pt states she has never had tonsils. , osteoperosis (FRANCOISCHRISTIANO CAREER TECHNICAL SUPERVISOR) Past Surgical History: Other Additional Past Surgical Histo: Vericose vein removal, "calcium removed from a few places", L ARM PIN (CHRISTIANO PARRISH Bonny CAREER TECHNICAL SUPERVISOR) Smoking Status: Never Smoker Alcohol Use: None Drug Use: None (CHRISTIANO PARRISH Bonny CAREER TECHNICAL SUPERVISOR) General Adult EDM: Chief Complaint: NAUSEA/VOMITING/DIARRHEA HPI: HPI: Patient is a 89 year old female with history of diabetes type 2, hypertension, who presents to the ED today to be evaluated for vomiting. Patient states the vomiting began around 5 PM after having dinner. Patient states she had a a small bowel movement today but she still feels constipated. She states she took Zofran with some relief. Denies any abdominal pain. Denies any hematemesis. Denies any chest pain or shortness of breath. She states she has been vacc inated against Covid (CANDIFaheemCHRISTIANO Bonny CAREER TECHNICAL SUPERVISOR) Review of Systems: Review of Systems: Constitutional: Denies fever or chills. [] Eyes: Denies change in visual acuity. [] HENT: Denies nasal congestion or sore throat. [] Respiratory: Denies cough or shortness of breath. [] Cardiovascular: Denies chest pain or edema. [] GI: Reports vomiting. Denies abdominal pain, bloody stools or diarrhea. [] : Denies dysuria. [] Musculoskeletal: Denies back pain or joint pain. [] Integument: Denies rash. [] Neurologic: Denies headache, focal weakness or sensory changes. [] Endocrine: Denies polyuria or polydipsia. [] Lymphatic: Denies swollen glands. [] Psychiatric: Denies depression or anxiety. [] (CHRISTIANO PARRISH CAREER TECHNICAL SUPERVISOR) Heart Score: C/O Chest Pain: N/A Risk Factors: Risk Factors: DM, Current or recent (<one month) smoker, HTN, HLP, family history of CAD, obesity. Risk Scores: Score 0 - 3: 2.5% MACE over next 6 weeks - Discharge Home Score 4 - 6: 20.3% MACE over next 6 weeks - Admit for Clinical Observation Score 7 - 10: 72.7% MACE over next 6 weeks - Early Invasive Strategies (CHRISTIANO PARRISH CAREER TECHNICAL SUPERVISOR) Allergies: Allergies: Allergies Coded Allergies Type Severity Reaction Last Updated Verified Sulfa (Sulfonamide Antibiotics) Allergy Intermediate 12/21/14 Yes bacitracin Allergy Intermediate rash 12/21/14 Yes neomycin Allergy Intermediate rash 12/21/14 Yes polymyxin B Allergy Intermediate rash 12/21/14 Yes (CHRISTIANO PARRISH CAREER TECHNICAL SUPERVISOR) Physical Exam: PE: Constitutional: Well developed, well nourished, no acute distress, non-toxic appearance. [] HENT: Normocephalic, atraumatic, bilateral external ears normal, oropharynx moist, no oral exudates, nose normal. [] Eyes: PERRLA, EOMI, conjunctiva normal, no discharge. [] Neck: Normal range of motion, no tenderness, supple, no stridor. [] Cardiovascular:Heart rate regular rhythm, no murmur [] Lungs & Thorax: Bilateral breath sounds clear to auscultation [] Abdomen: Bowel sounds normal, soft, no tenderness, no masses, no pulsatile masses. [] Skin: Warm, dry, no erythema, no rash. [] Back: No tenderness, no CVA tenderness. [] Extremities: No tenderness, no cyanosis, no clubbing, ROM intact, no edema. [] Neurologic: Alert and oriented X 3, normal motor function, normal sensory function, no focal deficits noted. [] Psychologic: Affect normal, judgement normal, mood normal. [] (CHRISTIANO PARRISH CAREER TECHNICAL SUPERVISOR) Current Patient Data: Vital Signs: Vital Signs Date Time Temp Pulse Resp B/P (MAP) Pulse Ox O2 Delivery O2 Flow Rate FiO2 01/18/21 21:20 98.6 109 16 145/105 (118) 98 Room Air 98.6 (CHRISTIANO PARRISH CAREER TECHNICAL SUPERVISOR) EKG: EKG: [] (CHRISTIANO PARRISH CAREER TECHNICAL SUPERVISOR) Radiology/Procedures: Radiology/Procedures: []PROCEDURE: ABDOMEN SUPINE & UPRIGHT Exam: Abdomen 2 views INDICATION: Abdominal pain, constipation TECHNIQUE: Upright and supine views of the abdomen Comparisons: None FINDINGS: Air and stool noted throughout the colon to level the rectum in a nonobstructive bowel gas pattern. No suspicious masses or calcifications. Visualized osseous structures are unremarkable. IMPRESSION: Nonobstructive bowel gas pattern. Moderate amount stool noted in the colon. Electronically signed by: Devante Chery MD (01/18/2021 10:11 PM) [facility] DICTATED and SIGNED BY: DEVANTE CHERY MD DATE: 01/18/21 [id number] (CHRISTIANO PARRISH APRN) Course & Med Decision Making: Course & Med Decision Making Pertinent Labs and Imaging studies reviewed. (See chart for details) This is a 89-year-old female patient presented to the ED today complaining of vomiting that began at 5 PM. Patient reports she is constipated. She states she had a bowel movement today but she still feels constipated. Mag citrate and Dulcolax given in the ED, milk of molasses enema ordered. Patient to be discharged home as soon as she has reasonable bowel movement (CHRISTIANO PARRISH APRN) Course & Med Decision Making I have participated in the care of this patient and I have reviewed and agree with all pertinent clinical information above including history, exam, and recommendations. (DEONTE OCHOA DO) Dragon Disclaimer: Dragon Disclaimer: This electronic medical record was generated, in whole or in part, using a voice recognition dictation system. (CHRISTIANO PARRISH APRN) Departure Departure Impression: Primary Impression: Constipation Qualified Codes: K59.00 - Constipation, unspecified Disposition: HOME / SELF CARE / HOMELESS Condition: STABLE Referrals: ALICIA NELSON MD (PCP) follow up next week Patient Instructions: Constipation, Adult Additional Instructions: You were evaluated in the emergency room and noted to be very constipated. We encourage you to increase your dietary fiber intake as well as water intake. Please take MiraLAX every day and the stool softener. Take magnesium citrate or mikl of magnesium and perform an enema anytime you are constipated. CHRISTIANO PARRISH APRN Jan 18, 2021 21:52 DEONTE OCHOA DO Jan 18, 2021 23:27
--- NOTE | 2021-01-18 22:13 | RAD ---
Exam: Abdomen 2 views INDICATION: Abdominal pain, constipation TECHNIQUE: Upright and supine views of the abdomen Comparisons: None FINDINGS: Air and stool noted throughout the colon to level the rectum in a nonobstructive bowel gas pattern. No suspicious masses or calcifications. Visualized osseous structures are unremarkable. IMPRESSION: Nonobstructive bowel gas pattern. Moderate amount stool noted in the colon. Electronically signed by: Devante Allison MD (01/18/2021 10:11 PM) [facility]
[2021-01-18] MEDS ORDERED: BISACODYL 5 MG TABLET.DR. PO STA (22:16)
[2021-01-18] MEDS ORDERED: PROCHLORPERAZINE 10 MG/2 ML VIAL. IM ONE (22:30)
[2021-01-18] MEDS ORDERED: MAGNESIUM CITRATE 296 ML SOLUTION. PO ONE (22:30)
[2021-01-18] MEDS ORDERED: ONDANSETRON ODT 4 MG TAB.RAPDIS. PO ONE (23:30)
[2021-01-19 00:02] LABS: BASO % 0 % (0-3); EOS # 0.1 x10^3/uL (0.0-0.7); EOS % 0 % (0-3); HEMATOCRIT 39.6 % (36.0-47.0); HEMOGLOBIN 13.3 g/dL (12.0-15.5); LYMPH # 1.5 x10^3/uL (1.0-4.8); LYMPH % 10 % (24-48); MEAN CORPUSCULAR HEMOGLOBIN 31 pg (25-35); MEAN CORPUSCULAR HGB CONC 34 g/dL (31-37); MEAN CORPUSCULAR VOLUME 91 fL (79-100); MONO # 0.9 x10^3/uL (0.0-1.1); MONO % 6 % (0-9); NEUT # 12.8 x10^3/uL (1.8-7.7); NEUT % 83 % (31-73); PLATELET COUNT 231 x10^3/uL (140-400); RED BLOOD COUNT 4.34 x10^6/uL (3.50-5.40); RED CELL DISTRIBUTION WIDTH 14.5 % (11.5-14.5); WHITE BLOOD COUNT 15.3 x10^3/uL (4.0-11.0)
[2021-01-19 00:10] LABS: CALCIUM 8.7 mg/dL (8.5-10.1); GFR 52.2; POTASSIUM 4.8 mmol/L (3.5-5.1)
[2021-01-19 00:15] LABS: ALBUMIN 3.5 g/dL (3.4-5.0); TOTAL BILIRUBIN 0.7 mg/dL (0.2-1.0); TOTAL PROTEIN 6.9 g/dL (6.4-8.2)
[2021-01-19] MEDS ORDERED: IOHEXOL 300 MG/ML 100ML VIAL. IV ONE (00:15)
[2021-01-19 00:25] LABS: % BASOS 1 % (0-3); % LYMPHS 12 % (24-48); % MONOS 3 % (0-10); % SEGS 84 % (35-66); PLT ESTIMATE ADEQUATE (ADEQUATE)
[2021-01-19] MEDS ORDERED: CONTRAST GIVEN. MC PRN (00:30)
--- NOTE | 2021-01-19 00:55 | RAD ---
EXAMINATION: CT ABDOMEN+PELVIS W CLINICAL HISTORY: Abdominal pain TECHNIQUE: CT of the abdomen and pelvis was performed using standard technique, scanning from just ab ove the dome of the diaphragm to the symphysis pubis following administration of intravenous contrast . CT Dose Reduction Employed: One or more of the following individualized dose reduction techniques wer e utilized for this examination: 1. Automated exposure control 2. Adjustment of the mA and/or kV ac cording to patient size 3. Use of iterative reconstruction technique. COMPARISON: 07/02/2018 FINDINGS: Marked coronary atherosclerotic calcification and calcification of the mitral annulus, incompletely e valuated. Mild bibasilar subsegmental atelectasis. A few subcentimeter hypoenhancing foci in the liver, too small adequately characterize. Contracted ga llbladder. Multiple small calcifications in the spleen, likely related to old granulomatous disease. Pancreas and adrenal glands unremarkable. Asymmetric left renal atrophy. Bilateral renal cysts measuring up to 2.4 cm on the left. Mild to moderately filled urinary bladder with small fold in the left posterolateral bladder. Paramet rial calcifications, similar to prior study. Prominent rectosigmoid stool retention, suspicious for impaction. No evidence of bowel obstruction. N o definite bowel wall thickening. Large diverticulum in the posterior segment of the duodenum, simila r to prior study. Appendix within normal limits. Moderate hiatal hernia. Extensive arterial atherosclerotic calcification without focal ectasia of the infrarenal abdominal ao rta, similar to prior study. Levoconvex curvature in the lumbar spine. Multilevel thoracolumbar degenerative changes. 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 IMPRESSION: Moderate rectosigmoid stool retention, suspicious for impaction. Correlate clinically. No evidence of bowel obstruction. Multiple nonacute findings as described. Electronically signed by: Joshua Walters DO (01/19/2021 12:53 AM) [facility]
[2021-01-19] MEDS ORDERED: ONDANSETRON PF 4 MG/2 ML VIAL. IVP PRN (01:30)
[2021-01-19] MEDS ORDERED: MORPHINE SULFATE 2 MG/ML INJ. IVP PRN (01:30)
[2021-01-19 02:55] VITALS: BP 135/69
--- NOTE | 2021-01-19 03:15 | NUR ---
Patient arrived to unit at approximately 0315 via bed wheeled by ER transport. Upon arrival patient had yellow liquid on shirt and blankets. Patient was transferred to unit bed where she clothes and linens were changed and skin was cleansed. Small amount of BM in brief, not formed. Patient vomited twice more in basin after repositioning, medium brown liquid emesis with foul odor. She denies pain at this time. Alert et oriented x 4. Report received from Ruma in ED.
[2021-01-19 07:00] VITALS: BP 128/66
[2021-01-19] MEDS ORDERED: ONDANSETRON ODT 4 MG TAB.RAPDIS. PO PRN (11:00)
[2021-01-19 11:20] VITALS: BP 122/78
[2021-01-19] MEDS: ASPIRIN CHEWABLE 81 MG TABLET. PO SCH (11:46)
[2021-01-19] MEDS: PANTOPRAZOLE 40 MG TABLET.DR. PO SCH ×2 (11:46→17:26)
[2021-01-19] MEDS: DOCUSATE SODIUM 100 MG CAPSULE. PO SCH ×2 (11:46→20:17)
[2021-01-19] MEDS: MULTIVITAMIN with MINERAL TABLET. PO SCH (11:47)
[2021-01-19] MEDS: INSULIN LISPRO 300 UNITS/3 ML VIAL. SQ SCH ×2 (11:59→17:31)
[2021-01-19] MEDS ORDERED: LOSARTAN POTASSIUM 25 MG TABLET. PO SCH (12:00)
--- NOTE | 2021-01-19 12:42 | HP ---
ADMIT DATE: 01/19/2021 LOCATION: She is in room 412. HISTORY OF PRESENT ILLNESS: This 89-year-old white female, patient of Dr. Lucius Rodriguez, is admitted through the emergency room with just generally not feeling good and vomiting. She apparently had feculent vomiting in the emergency room and found on CAT scan to have a large amount of stool with probable impaction. States she still overall does not feel good. She is currently not nauseated any longer and per nursing has had several bowel movements overnight. PAST MEDICAL HISTORY: Remarkable for depression, glaucoma, GERD, diabetes, hypertension, UTIs. She has a history of osteoporosis. MEDICATIONS: Meds were brought with the patient, listed on the computer have been addressed. ALLERGIES: SHE IS ALLERGIC TO BACITRACIN, SULFA, NEOMYCIN, POLYMYXIN B. SOCIAL HISTORY: She is a lifetime nonsmoker, does not drink or use drugs. FAMILY HISTORY: Noncontributory. REVIEW OF SYSTEMS: As mentioned above. PHYSICAL EXAMINATION: GENERAL: She is a well-developed, well-nourished female, appearing younger than her stated age. VITAL SIGNS: Stable. She is afebrile. She appears to be relatively comfortable. HEAD, EYES, EARS, NOSE AND THROAT: Unremarkable. NECK: Supple, without adenopathy or thyromegaly. CHEST: Clear to auscultation and percussion. HEART: Regular rate and rhythm without S3, S4 or murmur. ABDOMEN: Soft, nontender, without hepatosplenomegaly or mass. EXTREMITIES: Without cyanosis, clubbing, or edema. NEUROLOGIC: She is intact. LABORATORY DATA: She has a mild leukocytosis with a left shift, likely related to the impaction. Her sodium is low at 127 and chloride at 191 on admission with a blood sugar of 240. ASSESSMENT: 1. Fecal impaction with nausea and feculent vomiting. 2. Hyponatremia. 3. Diabetes. PLAN: Continue catharsis as needed. At this point, she feels much improved and per nursing had stools overnight. I am going to investigate a little further the sodium level. HUMPHREY/BRYAN DR: Hernandez TID: [id number]
[2021-01-19 15:00] VITALS: BP 122/50
[2021-01-19] MEDS: LATANOPROST 0.005% OPHTH SOLUTION 2.5ML BOTTLE. OU SCH (20:18)
[2021-01-19] MEDS: INSULIN GLARGINE SYRINGE. SQ SCH (20:23)
[2021-01-19 23:15] VITALS: BP 134/59
[2021-01-20 03:30] VITALS: BP 129/60
[2021-01-20 04:22] LABS: BASO % 1 % (0-3); EOS # 0.1 x10^3/uL (0.0-0.7); EOS % 1 % (0-3); HEMATOCRIT 34.3 % (36.0-47.0); HEMOGLOBIN 11.4 g/dL (12.0-15.5); LYMPH # 1.7 x10^3/uL (1.0-4.8); LYMPH % 19 % (24-48); MEAN CORPUSCULAR HEMOGLOBIN 30 pg (25-35); MEAN CORPUSCULAR HGB CONC 33 g/dL (31-37); MEAN CORPUSCULAR VOLUME 90 fL (79-100); MONO % 11 % (0-9); NEUT # 6.3 x10^3/uL (1.8-7.7); NEUT % 69 % (31-73); PLATELET COUNT 190 x10^3/uL (140-400); RED BLOOD COUNT 3.79 x10^6/uL (3.50-5.40); RED CELL DISTRIBUTION WIDTH 14.3 % (11.5-14.5); WHITE BLOOD COUNT 9.2 x10^3/uL (4.0-11.0)
[2021-01-20 04:40] LABS: CALCIUM 8.1 mg/dL (8.5-10.1); CREATININE 1.2 mg/dL (0.6-1.0); GFR 42.3; POTASSIUM 4.3 mmol/L (3.5-5.1)
[2021-01-20 07:00] VITALS: BP 135/62
[2021-01-20] MEDS: PANTOPRAZOLE 40 MG TABLET.DR. PO SCH ×2 (07:37→17:03)
--- NOTE | 2021-01-20 07:54 | PDOC ---
Provider Note Date of Service: DATE: 01/20/21 TIME: 07:53 Provider Note vss, feels ok, Na+ low 128, was 134 10/23- will add iv herrera,, dc losartan re ? cause, folow, more mom also re impaction- likely home in am Justifications for Admission Other Justification ALICIA NELSON MD Jan 20, 2021 07:54
[2021-01-20] MEDS ORDERED: MAGNESIUM HYDROXIDE 2,400 MG/30 ML ORAL.SUSP. PO ONE (08:00)
[2021-01-20] MEDS: INSULIN LISPRO 300 UNITS/3 ML VIAL. SQ SCH ×3 (08:00→17:07)
[2021-01-20] MEDS: IV NORMAL SALINE 1000ML BAG 1,000 ML IV SCH ×2 (08:21→20:44)
[2021-01-20] MEDS: ASPIRIN CHEWABLE 81 MG TABLET. PO SCH (09:25)
[2021-01-20] MEDS: DOCUSATE SODIUM 100 MG CAPSULE. PO SCH ×2 (09:26→20:41)
[2021-01-20] MEDS: MULTIVITAMIN with MINERAL TABLET. PO SCH (09:26)
[2021-01-20 11:00] VITALS: BP 142/64
--- NOTE | 2021-01-20 12:53 | NUR ---
SW following. Discussed with RN, pt from home with daughter, room air. RN advised no SW needs at this time, anticipates possible discharge home tomorrow (01/21/21). SW will continue to follow.
[2021-01-20 15:00] VITALS: BP 138/57
[2021-01-20 19:00] VITALS: BP 127/58
[2021-01-20] MEDS: LATANOPROST 0.005% OPHTH SOLUTION 2.5ML BOTTLE. OU SCH (20:42)
[2021-01-20] MEDS: INSULIN GLARGINE SYRINGE. SQ SCH (20:43)
[2021-01-20 23:25] VITALS: BP 140/44
[2021-01-21 02:34] VITALS: BP 135/54
[2021-01-21 07:00] VITALS: BP 151/61
--- NOTE | 2021-01-21 08:01 | SNU/HH DC ---
DISCHARGE WITH HOME HEALTH DISCHARGE INFORMATION: Final Diagnosis: Problems Medical Problems: (1) Constipation Status: Acute Condition on Discharge: Stable CODE STATUS: Code Status: DNR/DNI HOME HEALTH: Face to Face: I certify this patient is under my care and that I, or a nurse practitioner or physician's hospital administrative assistant working with me, had a face to face encounter that meets the physician face to face encounter requirements with this patient on []. Medical Complications: DJD RN For Eval/Treatment: No Physical Therapy For: Evalulation/Treatment Occupational Therapy For: ADL's Home Health Aide For: Self-care Pt Meets Homebound Status: Unsteady balance w/ amb, POST DISCHARGE ORDERS: Activity Instructions for Disc: Activity as tolerated Weight Bearing Status after Di: As tolerated DIET AFTER DISCHARGE: ADA CHECKS AFTER DISCHARGE: Checks after discharge: Check blood press - daily, Check blood sugar, ac/hs TREATMENT/EQUIPMENT ORDERS: Adaptive Equipment Issued: None CERTIFICATION STATEMENT: Certification Statement: Certification Statement: Based on the above finding, I certify that this patient is confined to the home and needs intermittent assisted care, physical therapy and/or speech therapy, or continues to need occupational therapy.~ This patient is under my care, and I have initiated the establishment of the plan of care.~ This patient will be followed by myself or a community physician who will periodically review the plan of care. Home Meds Active Scripts Nitrofurantoin Monohyd/M-Cryst (MACROBID 100 MG CAPSULE) 100 Mg Capsule, 1 CAP PO BID for antibiotic for 5 Days, #10 CAP 0 Refills Prov:KORIN SARAVIA MD 10/31/20 Ondansetron (ONDANSETRON ODT) 4 Mg Tab.rapdis, 1 TAB PO PRN Q6-8HRS PRN for NAUSEA, #16 TAB Prov:KORIN SARAVIA MD 10/31/20 Nitrofurantoin Monohyd/M-Cryst (MACROBID 100 MG CAPSULE) 100 Mg Capsule, 1 CAP PO BID for 10 Days, #20 CAP 0 Refills Prov:VERNON MUNOZ I DO 02/23/20 Cephalexin (KEFLEX) 500 Mg Capsule, 1 CAP PO TID for 5 Days, #15 CAP 0 Refills Prov:DELPHINE DEL CID DO 01/11/20 Cephalexin (KEFLEX) 500 Mg Capsule, 1 CAP PO BID, #10 CAP Prov:ALFIE HALL DO 12/20/18 Ondansetron Hcl (ZOFRAN) 4 Mg Tablet, 1 TAB PO Q6HRS PRN for NAUSEA, #10 TAB 0 Refills Prov:ALFIE HALL DO 12/20/18 Ondansetron Hcl (ZOFRAN) 4 Mg Tablet, 1 TAB PO Q6HRS, #20 TAB Prov:CHRISTIANO PARRISH COLLET MAKING MACHINE OPERATOR 09/03/18 Cephalexin (CEPHALEXIN) 500 Mg Tablet, 1 TAB PO BID, #14 TAB Prov:CHRISTIANO PARRISH COLLET MAKING MACHINE OPERATOR 09/03/18 Reported Medications Oxybutynin Chloride (OXYBUTYNIN CHLORIDE ER) 10 Mg Tab.er.24, 1 TAB PO DAILY for overactive bladder, #30 TAB 5 Refills 07/30/20 Docusate Sodium (COLACE) 100 Mg Capsule, 1 CAP PO BID for constipation, #30 CAP 07/02/18 Aspirin (CHILDREN'S ASPIRIN) 81 Mg Tab.chew, 81 MG PO DAILY for , TAB.CHEW 07/02/18 Multivitamin (MULTIVITAMINS) 1 Each Tablet, 1 TAB PO DAILY for , #30 TAB 5 Refills 07/02/18 Insulin Glargine,Hum.rec.anlog (LANTUS SOLOSTAR) 100 Unit/1 Ml Insuln.pen, 7 UNIT SQ QHS for DM, #15 ML 3 Refills 07/02/18 Amlodipine Besylate (AMLODIPINE BESYLATE) 10 Mg Tablet, 10 MG PO DAILY for , TAB 07/02/18 Losartan Potassium (LOSARTAN POTASSIUM ) 25 Mg Tablet, 25 MG PO DAILY for HYPERTENSION, TAB 07/02/18 Ranitidine Hcl (RANITIDINE HCL) 150 Mg Tablet, 150 MG PO BID for , TAB 07/02/18 Pantoprazole Sodium (PROTONIX) 20 Mg Tablet.dr, 40 MG PO BID for , TAB 07/02/18 Insulin Aspart (NOVOLOG) 100 Unit/1 Ml Cartridge, 3 UNIT SQ TIDAC, EACH 10/25/13 [place]-3 Fatty Acids (FISH OIL) 500 Mg Capsule.dr, 1000 MG PO DAILY 10/25/13 Latanoprost (LATANOPROST) 2.5 Ml Drops, 1 DROP OP HS, EACH 10/25/13 ALICIA NELSON MD Jan 21, 2021 08:01
[2021-01-21 08:08] LABS: CALCIUM 7.1 mg/dL (8.5-10.1); CREATININE 0.8 mg/dL (0.6-1.0); GFR 67.5; POTASSIUM 3.9 mmol/L (3.5-5.1)
[2021-01-21] MEDS: DOCUSATE SODIUM 100 MG CAPSULE. PO SCH (08:09)
[2021-01-21] MEDS: ASPIRIN CHEWABLE 81 MG TABLET. PO SCH (08:14)
[2021-01-21] MEDS: PANTOPRAZOLE 40 MG TABLET.DR. PO SCH (08:14)
[2021-01-21] MEDS: MULTIVITAMIN with MINERAL TABLET. PO SCH (08:14)
--- NOTE | 2021-01-21 08:14 | PDOC ---
Provider Note Date of Service: DATE: 01/21/21 TIME: 08:13 Provider Note [id number] Justifications for Admission Other Justification ALICIA NELSON MD Jan 21, 2021 08:14
[2021-01-21] MEDS ORDERED: POLYETHYLENE GLYCOL 3350 17 GM PACKET. PO ONE (08:15)
[2021-01-21] MEDS: INSULIN LISPRO 300 UNITS/3 ML VIAL. SQ SCH ×2 (08:19→12:38)
--- NOTE | 2021-01-21 08:26 | DS ---
DATE OF DISCHARGE: 01/21/2021 HOSPITAL SUMMARY: An 89-year-old white female came in with abdominal pain, weakness and fatigue. Chemistry profile showed that her sodium was down to 127. Blood sugar was mildly elevated. Sodium was 133 after getting off losartan and getting a liter of IV fluid. A CT scan showed evidence of fecal impaction with no other acute findings and a nonobstructive pattern was noted. She was treated with oral MiraLax, milk of magnesia with good results. Her vital signs were stable and after a liter of IV fluids and stopping losartan, she is feeling well and able to be followed as an outpatient. FINAL DIAGNOSES: 1. Abdominal pain secondary to fecal impaction and constipation. 2. Hyponatremia, likely secondary to losartan use. OPERATIONS, PROCEDURES, COMPLICATIONS AND CONSULTATIONS: None. DISPOSITION: Home meds remain the same except to increase MiraLax to 2 capsules daily every day. We will discontinue losartan and follow as an outpatient using only amlodipine for hypertension as risk is greater than benefit for her. She remains a DNR patient. We will see her as needed and follow up and her prognosis is guarded. NIKOS DR: Felicita TID: [id number]
[2021-01-21 11:00] VITALS: BP 129/56
--- NOTE | 2021-01-21 12:32 | NUR ---
[facility] following. Discussed with RN, discharge order for home with home health. [facility] met with pt, pt would like [facility] again. [facility] faxed referral and discharge orders to [facility]. Pt reported her daughter will collect her around [phone] today. RN notified. Addendum: 01/21/21 at 1551 by HUONG LEUNG [facility] called to advise they cannot accept pt back due to pt being seen this admission by Dr. Betancur (Dr. Betancur owns [employer]). Per [facility] it doesn't matter that Dr. Rodriguez is listed as the PCP or that he wrote the discharge orders. Anything Dr. Betancur touches cannot be accepted. [facility] spoke with Dr. Rodriguez, the pt will have a follow up appt in his office in the next week or two and he will do a new face to face and new home health orders from his office. Dr. Rodriguez is fine with pt going home with no home health at this time, as it isn't anything new why she was admitted. RN notified.
--- NOTE | 2021-01-21 16:01 | NUR ---
Patient given and educated on discharge instructions and home health and IV removed. Patient transported in personal wheelchair to van after discharge.
== END 2021-01-21 16:10 | disposition home or self-care (01) ==
LOC: ER 20:59 → 4 NORTH 01-19 02:12
PROVIDERS: ADMIT Family Medicine; ATTEND Family Medicine
DX: K56.41 Fecal impaction (principal); R11.10 Vomiting, unspecified; E87.1 Hypo-osmolality and hyponatremia; I10 Essential (primary) hypertension; E11.9 Type 2 diabetes mellitus without complications; H40.9 Unspecified glaucoma; M81.0 Age-related osteoporosis without current pathological fracture; F32.9 Major depressive disorder, single episode, unspecified; Z87.440 Personal history of urinary (tract) infections
CPT/HCPCS: 36415; 74021; 74177; 80048; 80053; 82962; 83690; 85007; 85025; 96361; 96372; 96374; 99285; G0378; J0780; J1815; J2405; J7030; Q9967; G0379

== ENCOUNTER 2021-01-23 17:23 | Inpatient (IN) | payer MEDICARE ==
[~2021-01-23] VITALS: Ht 157.5 cm; Wt 54.6 kg
--- NOTE | 2021-01-23 18:13 | PHYS DOC ---
Past Medical History Past Medical History: Depression, Diabetes-Type II, GERD, Glaucoma, Hyper tension, UTI, Other Additional Past Medical Histor: Pt states she has never had tonsils. , osteoperosis Past Surgical History: Other Additional Past Surgical Histo: Vericose vein removal, "calcium removed from a few places", L ARM PIN Smoking Status: Never Smoker Alcohol Use: None Drug Use: None General Adult EDM: Chief Complaint: HYPERGLYCEMIA HPI: HPI: 89-year-old female patient presents to the emergency department complaining of fatigue, cough, white sputum production for the last several days with gradual onset. She denies any pain anywhere. She states that over the course of today she has noticed some higher than normal blood sugars at home. She is an insulin-dependent diabetic. She was last admitted to the hospital for vomiting last week which she states has resolved. She denies any abdominal pain or vomiting today, states that she had a episode of diarrhea earlier today and has otherwise had normal stools at home. The patient denies fever, chills, chest pain, shortness of breath, abdominal pain, urinary symptoms, recent trauma, or any other complaints. Review of Systems: Review of Systems: ROS otherwise negative except for what was mentioned Heart Score: C/O Chest Pain: No Allergies: Allergies: Allergies Coded Allergies Type Severity Reaction Last Updated Verified Sulfa (Sulfonamide Antibiotics) Allergy Intermediate 12/21/14 Yes bacitracin Allergy Intermediate rash 12/21/14 Yes neomycin Allergy Intermediate rash 12/21/14 Yes polymyxin B Allergy Intermediate rash 12/21/14 Yes Physical Exam: PE: Constitutional: No acute distress, non-toxic appearance. HENT: Atraumatic, bilateral external ears normal, nose normal. Eyes: PERRLA, EOMI, conjunctiva normal, no discharge. Neck: Normal range of motion, supple, no stridor. Cardiovascular: Heart rate regular rhythm. 2+ radial pulses Lungs & Thorax: No respiratory distress, symmetrical expansion. Bilateral breath sounds clear to auscultation Abdomen: Soft, no tenderness Skin: Warm, dry. Extremities: No tenderness, no cyanosis, ROM intact, no edema. Neurologic: Alert and oriented X 3, normal motor function, normal sensory function, no focal deficits noted. GCS 15. Psychologic: Affect normal, judgment normal, mood normal. Current Patient Data: Labs: Laboratory Tests Test 01/23/21 17:44 Glucose (Fingerstick) 198 mg/dL (70-99) H Vital Signs: Vital Signs Date Time Temp Pulse Resp B/P (MAP) Pulse Ox O2 Delivery O2 Flow Rate FiO2 01/23/21 17:45 98.3 106 18 168/71 (103) 100 Room Air 98.3 EKG: EKG: Time read: 1900 Sinus tachycardia rate of 101, no ST-T wave changes, no ectopic beats, left axis deviation, normal MI, QRS, and QTc intervals. Impression: No acute ischemic change. interpreted by meBandar D.O. Radiology/Procedures: Radiology/Procedures: AP chest x-ray HISTORY: Cough. COMPARISON: Chest x-ray July 2020 FINDINGS: Heart size normal. Aortic arch calcified plaque and mild tortuosity. No pneumothorax. No pleural effusions. There is a right lateral suprahilar linear nodular density measuring 3 x 1 cm raising the possibility of perihilar infiltrate or mass. Left lung is clear. IMPRESSION: Right upper perihilar 3 x 1 cm linear nodular density could be a perihilar pneumonic infiltrate versus a mass. Consider further evaluation with CT chest imaging. Electronically signed by: Thomas Brown MD (01/23/2021 6:50 PM) EXAM: CT chest with contrast - pulmonary embolus protocol CLINICAL HISTORY: Shortness of air for pulmonary embolus COMPARISON: MRI thoracic spine for 1905 TECHNIQUE: CT of the chest following the administration of intravenous contrast during the pulmonary arterial phase. Axial, coronal and sagittal reformatted images were generated including MIP images. ---PQRS compliance statement - One or more of the following individualized dose reduction techniques were utilized for this study: 1. Automated exposure control 2. Adjustment of the mA and/or kV according to patient size 3. Use of iterative reconstruction technique--- FINDINGS: CHEST: Diagnostic quality: Adequate. Pulmonary emboli: None seen Right heart strain: None Pulmonary arteries: Normal in caliber. Severe right subclavian artery stenosis. No axillary lymphadenopathy. Right paratracheal lymph node measured 2.2 x 2 cm. A 1.4 cm nodule is seen at the inferior pole the left thyroid with substernal extension. Heart is not enlarged. Dense aortic calcifications are seen. Coronary calcifications are seen. No pleural effusion. No pneumothorax. Linear opacities in the lingula and lower lobes likely scarring/atelectasis. Associated patchy groundglass airspace opacities in the lower lobes are also seen. Visualized Upper abdomen: Cortical scarring left kidney with left interpolar renal cyst. Large duodenal diverticulum. Moderate hiatal hernia. Subcentimeter hypodense hepatic dome lesion. Bones: There is approximately 25 percent height loss of T12, stable to 07/22/2005. IMPRESSION: 1. No evidence for acute pulmonary embolus. 2. Right paratracheal lymph node is enlarged measuring 2.2 x 2 cm. Short interval follow-up CT evaluation is recommended or comparison to prior imaging if available. 3. Patchy ground glass airspace opacities in the lower lobes representing atelectasis or developing consolidative process. Imaging follow-up to resolution is recommended. 4. Moderate hiatal hernia. Electronically signed by: Baldomero Finley MD (01/23/2021 9:31 PM) Course & Med Decision Making: Course & Med Decision Making Elderly frail Patient with evidence for UTI and possible developing pneumonia, given her recent hospital stay we will admit her to the hospital overnight to Dr. Nelson for IV antibiotics for HAP and UTI. Patient's heart rate was improved with some fluids she is feeling better after her ED course. She was amenable to admission for further care My Orders - BANDAR OCHOA DO Procedure Category Date Status Time Cbc W Autodiff LAB 01/23/21 Complete 18:10 Comprehensive LAB 01/23/21 Complete Metabolic Panel 18:10 Chest Ap Only RAD 01/23/21 Resulted 18:10 Sars Cov2 ([place]) LAB 01/23/21 In Process 18:10 Sars Antigen Keiko Rapid LAB 01/23/21 Complete 18:10 Iv Normal Saline PHA 01/23/21 Complete 500ml Bag (Iv Sodium 18:15 Nt-Pro Bnp LAB 01/23/21 Complete 18:11 Troponini LAB 01/23/21 Complete 18:11 12 Lead Ekg EKG 01/23/21 Complete 18:11 Ua, Cult If Indicated LAB 01/23/21 Complete 18:[address] 01/23/21 Resulted 19:39 Iohexol 350 Mg/Ml PHA 01/23/21 Complete (Omnipaque 350 Mg/Ml) 20:00 Urine Culture ADRIEN 01/23/21 In Process 20:18 Ceftriaxone Iv Push PHA 01/23/21 Complete (Rocephin) 22:00 Vancomycin Per PHA 01/23/21 In Process Pharmacy (Vanco Per 22:30 Cefepime Hcl Iv Push PHA 01/23/21 In Process (Maxipime) 23:00 [place] Order ADT 01/23/21 Transmitted 22:26 Code Status CODE 01/23/21 Transmitted 22:26 Vital Signs, Per Unit ALEXUS 01/23/21 In Process Protocol 22:26 Regular DIET 01/24/21 Transmitted Breakfast Ondansetron Pf PHA 01/23/21 Transmitted (Zofran) 22:30 Morphine Sulfate PHA 01/23/21 Logged (Morphine Sulfate) 22:30 Acetaminophen PHA 01/23/21 In Process (Tylenol) 22:30 Vancomycin PHA 01/23/21 In Process (Vancomycin) 23:00 Departure Departure Impression: Primary Impression: UTI (lower urinary tract infection) Additional Impression: Pneumonia Disposition: ADMITTED INPATIENT Admitting Physician: Alicia Nelson Condition: STABLE Referrals: ALICIA NELSON MD (PCP) BANDAR OCHOA DO Jan 23, 2021 18:13
[2021-01-23] MEDS ORDERED: IV NORMAL SALINE 500ML BAG 500 ML IV ONE (18:15)
--- NOTE | 2021-01-23 18:53 | RAD ---
AP chest x-ray HISTORY: Cough. COMPARISON: Chest x-ray July 2020 FINDINGS: Heart size normal. Aortic arch calcified plaque and mild tortuosity. No pneumothorax. No pl eural effusions. There is a right lateral suprahilar linear nodular density measuring 3 x 1 cm raisin g the possibility of perihilar infiltrate or mass. Left lung is clear. IMPRESSION: Right upper perihilar 3 x 1 cm linear nodular density could be a perihilar pneumonic infi ltrate versus a mass. Consider further evaluation with CT chest imaging. Electronically signed by: Thomas Brown MD (01/23/2021 6:50 PM) [facility]
[2021-01-23 18:55] LABS: BASO # 0.1 x10^3/uL (0.0-0.2); BASO % 1 % (0-3); EOS # 0.1 x10^3/uL (0.0-0.7); EOS % 2 % (0-3); HEMOGLOBIN 13.1 g/dL (12.0-15.5); LYMPH # 1.4 x10^3/uL (1.0-4.8); LYMPH % 17 % (24-48); MEAN CORPUSCULAR HEMOGLOBIN 31 pg (25-35); MEAN CORPUSCULAR HGB CONC 34 g/dL (31-37); MEAN CORPUSCULAR VOLUME 91 fL (79-100); MONO # 0.7 x10^3/uL (0.0-1.1); MONO % 8 % (0-9); NEUT # 5.9 x10^3/uL (1.8-7.7); NEUT % 72 % (31-73); PLATELET COUNT 236 x10^3/uL (140-400); RED BLOOD COUNT 4.31 x10^6/uL (3.50-5.40); RED CELL DISTRIBUTION WIDTH 14.5 % (11.5-14.5); WHITE BLOOD COUNT 8.2 x10^3/uL (4.0-11.0)
[2021-01-23 19:09] LABS: CALCIUM 8.9 mg/dL (8.5-10.1); CREATININE 0.8 mg/dL (0.6-1.0); GFR 67.5; POTASSIUM 4.4 mmol/L (3.5-5.1)
[2021-01-23 19:11] LABS: ALBUMIN 3.5 g/dL (3.4-5.0); ALBUMIN/GLOBULIN RATIO 0.9 (1.0-1.7); TOTAL BILIRUBIN 0.4 mg/dL (0.2-1.0); TOTAL PROTEIN 7.2 g/dL (6.4-8.2)
--- NOTE | 2021-01-23 19:29 | EKG ---
[facility] [address] [place] [address] Test Date: 2021-01-23 Test Time: 18:58:12 Pat Name: JERMAIN SUBRAMANIAN Department: Room: Gender: F Real Estate Inspector: : 1930 Requested By: DEONTE OCHOA Order Number: [id number] Reading MD: Shade Layton MD Measurements Intervals [place] Rate: 101 P: 25 MI: 142 QRS: -31 QRSD: 76 T: 22 QT: 334 QTc: 434 Interpretive Statements SINUS TACHYCARDIA LEFT ATRIAL ABNORMALITY consider septal infarct pattern Electronically Signed On 01-27-2021 11:25:26 CDT by Shade Layton MD
[2021-01-23] MEDS ORDERED: IOHEXOL 350 MG/ML 100 ML VIAL. IV ONE (20:00)
[2021-01-23 20:07] LABS: BILIRUBIN,URINE NEGATIVE (NEG); CLARITY,URINE CLEAR; COLOR,URINE YELLOW; NITRITE,URINE NEGATIVE (NEG); PROTEIN,URINE NEGATIVE (NEG-TRACE)
[2021-01-23 20:18] LABS: BACTERIA,URINE MANY /HPF (0-FEW); RBC,URINE 0 /HPF (0-2)
--- NOTE | 2021-01-23 21:34 | RAD ---
EXAM: CT chest with contrast - pulmonary embolus protocol CLINICAL HISTORY: Shortness of air for pulmonary embolus COMPARISON: MRI thoracic spine for 1906 TECHNIQUE: CT of the chest following the administration of intravenous contrast during the pulmonary arterial phase. Axial, coronal and sagittal reformatted images were generated including MIP images. ---PQRS compliance statement - One or more of the following individualized dose reduction techniques were utilized for this study: 1. Automated exposure control 2. Adjustment of the mA and/or kV according to patient size 3. Use of iterative reconstruction technique--- FINDINGS: CHEST: Diagnostic quality: Adequate. Pulmonary emboli: None seen Right heart strain: None Pulmonary arteries: Normal in caliber. Severe right subclavian artery stenosis. No axillary lymphadenopathy. Right paratracheal lymph node m easured 2.2 x 2 cm. A 1.4 cm nodule is seen at the inferior pole the left thyroid with substernal ext ension. Heart is not enlarged. Dense aortic calcifications are seen. Coronary calcifications are seen. No ple ural effusion. No pneumothorax. Linear opacities in the lingula and lower lobes likely scarring/atelectasis. Associated patchy ground glass airspace opacities in the lower lobes are also seen. Visualized Upper abdomen: Cortical scarring left kidney with left interpolar renal cyst. Large duode nal diverticulum. Moderate hiatal hernia. Subcentimeter hypodense hepatic dome lesion. Bones: There is approximately 25 percent height loss of T12, stable to 07/22/2005. IMPRESSION: 1. No evidence for acute pulmonary embolus. 2. Right paratracheal lymph node is enlarged measuring 2.2 x 2 cm. Short interval follow-up CT evalu ation is recommended or comparison to prior imaging if available. 3. Patchy ground glass airspace opacities in the lower lobes representing atelectasis or developing consolidative process. Imaging follow-up to resolution is recommended. 4. Moderate hiatal hernia. Electronically signed by: Baldomero Finley MD (01/23/2021 9:31 PM) [facility]
[2021-01-23] MEDS ORDERED: cefTRIAXone IV Push 1 GM VIAL. IVP ONE (22:00)
[2021-01-23] MEDS ORDERED: ACETAMINOPHEN 325 MG TABLET. PO PRN (22:30)
[2021-01-23] MEDS ORDERED: VANCOMYCIN PER PHARMACY MC PRN (22:30)
[2021-01-23] MEDS ORDERED: ONDANSETRON PF 4 MG/2 ML VIAL. IVP PRN (22:30)
[2021-01-23] MEDS ORDERED: MORPHINE SULFATE 2 MG/ML INJ. IVP PRN (22:30)
[2021-01-23] MEDS ORDERED: PIP/TAZO PER PHARMACY MC PRN (22:45)
[2021-01-23] MEDS ORDERED: PIPERACILLIN/TAZOBACTAM 2.25 GM in IV NORMAL SALINE 50ML 50 ML IV SCH (23:00)
[2021-01-23] MEDS ORDERED: VANCOMYCIN 1.5 GM in IV NORMAL SALINE 500ML BAG 500 ML IV ONE (23:00)
[2021-01-23] MEDS ORDERED: CEFEPIME HCL IV Push 2 GM VIAL. IVP ONE (23:00)
[2021-01-23 23:30] VITALS: BP 150/75
[2021-01-24] VITALS (7 sets, daily range): BP systolic 116–151; BP diastolic 61–75
--- NOTE | 2021-01-24 00:20 | NUR ---
Pharmacy Vancomycin Dosing Note S:Consulted to monitor and dose vancomycin started 01/23/21. O:JERMAIN SUBRAMANIAN is a 89 year old F with Pneumonia UTI . Height: 5 feet, 2 inches Weight: 55.0 kg Spivey Body Weight: 50.10 Adjusted Body Weight: 52.06 Dosing Weight: Actual Other Antibiotics: ZOSYN2.25 GM Q6H LABS: Last BUN: 13 Last Creatinine: 0.8 Creatinine Clearance: 31 mL/min Last WBC: 8.2 Last Procalcitonin: Tmax (past 24 hours): Microbiology: I/O: Drug Levels: Last level: on at Last dose given 01/23/21 at 2300 Vancomycin Dosing: Loading Dose: 1500 mg x1 Dosing Weight: Actual Target Trough: 15-20 A: Based on: WT AND CRCL P: 1. Begin Vancomycin 750 mg IV q24h 2. Follow up Trough level on 01/25/21 at 2230 3. Pharmacy will continue to monitor, follow and adjust therapy as needed. FLORES MÁRQUEZ RPH, 01/24/21 0020 Signed: 01/24/21 at 0021 by FLORES MÁRQUEZ RPH PHA
[2021-01-24] MEDS ORDERED: NITR50CA PO (02:35)
[2021-01-24] MEDS ORDERED: PANT40TA77 PO (02:35)
[2021-01-24] MEDS ORDERED: LOSA100T14 PO (02:35)
[2021-01-24] MEDS ORDERED: AMLO-186 PO (02:35)
[2021-01-24] MEDS: PIPERACILLIN/TAZOBACTAM 3.375 GM in IV NORMAL SALINE 50ML 50 ML IV SCH ×5 (02:54→23:49)
[2021-01-24] MEDS ORDERED: IOHEXOL 350 MG/ML 100 ML VIAL. ONE (06:19)
[2021-01-24] MEDS ORDERED: ONDANSETRON ODT 4 MG TAB.RAPDIS. PO PRN ×2 (08:30→09:00)
[2021-01-24] MEDS: DOCUSATE SODIUM 100 MG CAPSULE. PO SCH ×2 (09:28→20:24)
[2021-01-24] MEDS: OXYBUTYNIN CHLORIDE 5 MG TABLET PO SCH ×2 (09:28→20:24)
[2021-01-24] MEDS: MULTIVITAMIN with MINERAL TABLET. PO SCH (09:28)
[2021-01-24] MEDS: PANTOPRAZOLE 40 MG TABLET.DR. PO SCH ×2 (09:28→16:02)
[2021-01-24] MEDS: LOSARTAN POTASSIUM 50 MG TABLET. PO SCH (09:31)
--- NOTE | 2021-01-24 09:41 | HP ---
DATE OF SERVICE: 01/24/2021 ADMIT DATE: 01/23/2021 CHIEF COMPLAINT: Weakness. HISTORY OF PRESENT ILLNESS: The patient was just discharged from the hospital after mild weakness for hyponatremia and constipation. Sodium level came up to normal with IV fluids and stopping losartan and she went home, feeling better, but about 2 days later, came back in with generalized weakness without specific complaints. She denies fever, chills, cough, sputum, dysuria or any other complaints. COVID serology was again negative as before. PAST MEDICAL HISTORY: Well documented in the old record. SOCIAL HISTORY: She is a DNR patient. Nonsmoker. FAMILY HISTORY: Unremarkable. REVIEW OF SYSTEMS: No other complaints. PHYSICAL EXAMINATION: ENT: All within normal limits. NECK: No masses, nodes or bruits. LUNGS: Clear without tachypnea. CARDIOVASCULAR: Regular rate. No tachycardia or murmur. ABDOMEN: Soft, benign and nontender. EXTREMITIES: Unremarkable. NEUROLOGIC: Physiologic. ASSESSMENT: Generalized weakness, urinary tract infection, otherwise stable. No clinical evidence of pneumonia. PLAN: Discontinue vancomycin and will use Zosyn, pending urine culture. Comfort care measures, MiraLax and she remains a DNR patient. BENEDICTO NAVAS: Felicita TID: [id number]
--- NOTE | 2021-01-24 10:42 | NUR ---
SW following. Discussed with RN, pt from home with daughter, room air, regular diet, rapid COVID-19 negative. IV abx. RN advised no SW needs at this time. SW will continue to follow.
[2021-01-24] MEDS ORDERED: PANTOPRAZOLE 40 MG TABLET.DR. PO SCH (11:30)
[2021-01-24] MEDS: INSULIN LISPRO 300 UNITS/3 ML VIAL. SQ SCH ×2 (11:44→17:00)
[2021-01-24] MEDS: INSULIN GLARGINE SYRINGE. SQ SCH (20:23)
[2021-01-24] MEDS: LACTOBACILLUS RHAMNOSUS GG 1 CAPSULE. PO SCH (20:24)
[2021-01-24] MEDS: LATANOPROST 0.005% OPHTH SOLUTION 2.5ML BOTTLE. OU SCH (20:24)
[2021-01-24] MEDS ORDERED: VANCOMYCIN 750 MG in IV NORMAL SALINE 250ML 250 ML IV SCH (23:00)
[2021-01-25 03:56] VITALS: BP 146/69
[2021-01-25] MEDS: PIPERACILLIN/TAZOBACTAM 3.375 GM in IV NORMAL SALINE 50ML 50 ML IV SCH ×2 (05:32→12:39)
[2021-01-25 07:00] VITALS: BP 133/71
[2021-01-25] MEDS: PANTOPRAZOLE 40 MG TABLET.DR. PO SCH ×2 (08:25→17:29)
[2021-01-25] MEDS: MULTIVITAMIN with MINERAL TABLET. PO SCH (08:25)
[2021-01-25] MEDS: LACTOBACILLUS RHAMNOSUS GG 1 CAPSULE. PO SCH ×2 (08:25→20:47)
[2021-01-25] MEDS: OXYBUTYNIN CHLORIDE 5 MG TABLET PO SCH ×2 (08:26→20:47)
[2021-01-25] MEDS: DOCUSATE SODIUM 100 MG CAPSULE. PO SCH ×2 (08:26→20:47)
[2021-01-25] MEDS: LOSARTAN POTASSIUM 50 MG TABLET. PO SCH (08:34)
[2021-01-25] MEDS: INSULIN LISPRO 300 UNITS/3 ML VIAL. SQ SCH ×3 (08:44→17:32)
[2021-01-25 11:00] VITALS: BP 130/62
[2021-01-25 15:00] VITALS: BP 122/57
[2021-01-25] MEDS: PIPERACILLIN/TAZOBACTAM 2.25 GM in IV NORMAL SALINE 50ML 50 ML IV SCH (17:27)
[2021-01-25 19:00] VITALS: BP 146/74
--- NOTE | 2021-01-25 20:06 | PN ---
DATE: 01/25/2021 DAILY PROGRESS NOTE LOCATION: She is in room 502. SUBJECTIVE: This 89-year-old female was hospitalized for generalized weakness, felt due to urinary tract infection. She is on antibiotics and feels somewhat better. OBJECTIVE: VITAL SIGNS: Stable. She is afebrile. GENERAL: She is awake and alert. CHEST: Clear. HEART: Regular. ABDOMEN: Benign. ASSESSMENT: Generalized weakness, likely due to urinary tract infection. PLAN: Continue present antibiotics. Await urine cultures to further direct therapy. LALO DR: Hernandez TID: [id number]
[2021-01-25] MEDS: LATANOPROST 0.005% OPHTH SOLUTION 2.5ML BOTTLE. OU SCH (20:47)
[2021-01-25] MEDS: INSULIN GLARGINE SYRINGE. SQ SCH (20:49)
[2021-01-25 23:00] VITALS: BP 115/49
[2021-01-26] MEDS: PIPERACILLIN/TAZOBACTAM 2.25 GM in IV NORMAL SALINE 50ML 50 ML IV SCH ×5 (00:29→23:52)
[2021-01-26 03:00] VITALS: BP 136/51
[2021-01-26 07:00] VITALS: BP 138/65
[2021-01-26] MEDS: INSULIN LISPRO 300 UNITS/3 ML VIAL. SQ SCH ×3 (08:00→17:00)
[2021-01-26 11:00] VITALS: BP 153/70
[2021-01-26] MEDS: DOCUSATE SODIUM 100 MG CAPSULE. PO SCH ×2 (11:17→19:25)
[2021-01-26] MEDS: PANTOPRAZOLE 40 MG TABLET.DR. PO SCH ×2 (11:17→17:44)
[2021-01-26] MEDS: MULTIVITAMIN with MINERAL TABLET. PO SCH (11:17)
[2021-01-26] MEDS: LACTOBACILLUS RHAMNOSUS GG 1 CAPSULE. PO SCH ×2 (11:17→21:06)
[2021-01-26] MEDS: OXYBUTYNIN CHLORIDE 5 MG TABLET PO SCH ×2 (11:18→21:06)
[2021-01-26] MEDS: LOSARTAN POTASSIUM 50 MG TABLET. PO SCH (11:18)
--- NOTE | 2021-01-26 12:14 | PN ---
DATE: 01/26/2021 DAILY PROGRESS NOTE LOCATION: She is in room 502. SUBJECTIVE: This 89-year-old female remains hospitalized with generalized weakness due to urinary tract infection. She does feel better on a daily basis and feels ready to start therapy. OBJECTIVE: VITAL SIGNS: Stable. She is afebrile. GENERAL: She is awake, alert. CHEST: Clear to auscultation. HEART: Regular rate and rhythm. ABDOMEN: Benign. LABORATORY DATA: Urine is growing out greater than 100,000 gram-negative rods without ID to date. Sugars have been decent. ASSESSMENT: 1. Generalized weakness due to urinary tract infection. 2. Diabetes. PLAN: Continue present antibiotics therapy to mobilize. Await urine cultures to further direct therapy. HUMPHREY DR: Hernandez TID: [id number]
[2021-01-26 15:00] VITALS: BP 150/64
[2021-01-26 19:00] VITALS: BP 134/56
[2021-01-26] MEDS: LATANOPROST 0.005% OPHTH SOLUTION 2.5ML BOTTLE. OU SCH (21:06)
[2021-01-26] MEDS: INSULIN GLARGINE SYRINGE. SQ SCH (21:10)
[2021-01-26 23:00] VITALS: BP 131/60
[2021-01-27 03:00] VITALS: BP 108/51
[2021-01-27] MEDS: PIPERACILLIN/TAZOBACTAM 2.25 GM in IV NORMAL SALINE 50ML 50 ML IV SCH ×3 (05:46→17:59)
[2021-01-27 07:00] VITALS: BP 153/68
--- NOTE | 2021-01-27 07:59 | PDOC ---
Provider Note Date of Service: DATE: 01/27/21 TIME: 07:58 Provider Note no temp, vss ,feels ok- still zosyn pending urine cult final, then home on po Justifications for Admission Other Justification ALICIA NELSON MD Jan 27, 2021 07:59
[2021-01-27] MEDS: INSULIN LISPRO 300 UNITS/3 ML VIAL. SQ SCH ×3 (08:19→18:12)
[2021-01-27] MEDS: DOCUSATE SODIUM 100 MG CAPSULE. PO SCH (09:00)
[2021-01-27] MEDS: LACTOBACILLUS RHAMNOSUS GG 1 CAPSULE. PO SCH (09:55)
[2021-01-27] MEDS: PANTOPRAZOLE 40 MG TABLET.DR. PO SCH ×2 (09:55→17:57)
[2021-01-27] MEDS: LOSARTAN POTASSIUM 50 MG TABLET. PO SCH (09:56)
[2021-01-27] MEDS: OXYBUTYNIN CHLORIDE 5 MG TABLET PO SCH (09:56)
[2021-01-27] MEDS: MULTIVITAMIN with MINERAL TABLET. PO SCH (09:56)
[2021-01-27 11:00] VITALS: BP 125/58
[2021-01-27 15:00] VITALS: BP 123/49
[2021-01-27 19:43] VITALS: BP 140/63
--- NOTE | 2021-01-27 20:22 | DS ---
DATE OF DISCHARGE: 01/27/2021 HOSPITAL SUMMARY: An 89-year-old white female came back in for a recent admission with fatigue, weakness and generalized complaints. She was found to have a urinary tract infection with urine culture ultimately grew out E. coli sensitive to all antibiotics tested. Sodium level was up to 133 and the rest of the laboratory studies were unremarkable. She was given IV Zosyn throughout the hospital stay, has done well, feeling better on the day of discharge and able to be followed as an outpatient. FINAL DIAGNOSIS: Urinary tract infection. OPERATIONS: None. PROCEDURES: None. COMPLICATIONS: None. CONSULTATIONS: None. DISPOSITION: Three more days of Augmentin 875 twice a day. Rest of home meds remain all the same. She remains off the ARB given the hyponatremia, which has improved. Prognosis is guarded. She remains a DNR patient. PHIL DR: Felicita TID: [id number]
== END 2021-01-27 20:20 | disposition home or self-care (01) | DRG 690 ==
LOC: ER 17:23 → 5 NORTH 22:23
PROVIDERS: ADMIT Family Medicine; ATTEND Family Medicine
DX: N39.0 Urinary tract infection, site not specified (principal); I10 Essential (primary) hypertension; Z66 Do not resuscitate; Z79.4 Long term (current) use of insulin; F32.A Depression, unspecified; H40.9 Unspecified glaucoma; K21.9 Gastro-esophageal reflux disease without esophagitis; E11.9 Type 2 diabetes mellitus without complications; Z88.1 Allergy status to other antibiotic agents; Z88.2 Allergy status to sulfonamides; Z88.8 Allergy status to other drugs, medicaments and biological substances; Z20.822 Contact with and (suspected) exposure to COVID-19
CPT/HCPCS: 36415; 71045; 71275; 80053; 81001; 82962; 83880; 84484; 85025; 87077; 87086; 87186; 87426; 93005; 96360; 96361; J1815; J2543; J3370; J7040; Q9967; U0003; U0005; 97116-GP; 99285-25; G0378